=== PATIENT | female | born 1935 | race Caucasian/White ===

== ENCOUNTER 2022-11-20 10:23 | Inpatient (IN) | payer OTHER, MEDICARE ==
[2022-11-20] MEDS ORDERED: NA CHLORIDE 0.9% 1,000 ML ONE (10:44)
--- NOTE | 2022-11-20 10:54 | RAD REPORT ---
EXAM DESCRIPTION: CT - Head Brain Wo Cont - 11/20/2022 10:48 am CLINICAL HISTORY: dizziness, head injury Trauma, head injury COMPARISON: No comparisons TECHNIQUE: All CT scans are performed using dose optimization technique as appropriate and may inclu de automated exposure control or mA/KV adjustment according to patient size. FINDINGS: No intracranial hemorrhage, hydrocephalus or extra-axial fluid collection.Mild brain atrop hy. 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 Small amount of fluid left maxillary sinus. The calvarium is intact. IMPRESSION: No acute intracranial abnormality.
[2022-11-20 11:20] LABS: Absolute Lymphocytes (CBC) 0.3 K/uL (0.7-4.9); Hematocrit 36.2 % (36.0-45.0); Lymphocytes % 1.4 % (15.3-44.8); MCV 84.8 fL (80-100); MPV 7.7 fL (7.6-11.3); RBC Red Blood Cell Count 4.26 M/uL (3.86-4.86)
[2022-11-20 11:26] LABS: Protime INR 1.22
--- NOTE | 2022-11-20 11:27 | RAD REPORT ---
EXAM DESCRIPTION: RAD - Chest Single View - 11/20/2022 11:19 am CLINICAL HISTORY: dizziness Chest pain. COMPARISON: No comparisons FINDINGS: Portable technique limits examination quality. The lungs are grossly clear. The heart is normal in size. No displaced fractures. IMPRESSION: No acute intrathoracic process suspected.
[2022-11-20 11:36] LABS: Albumin 3.6 g/dL (3.4-5.0); Bilirubin Direct 0.4 mg/dL (0-0.2); Bilirubin Total 0.9 mg/dL (0.2-1.0); Magnesium 1.7 mg/dL (1.6-2.4); Potassium 3.6 mmol/L (3.5-5.1); Protein, Total 6.9 g/dL (6.4-8.2)
[2022-11-20 11:43] LABS: Troponin High Sensitivity 677.7 pg/mL (<58.9)
[2022-11-20 11:48] LABS: SARS-CoV-2 Antigen Rapid Res Negative (Negative)
--- NOTE | 2022-11-20 12:13 | EDPHYS ---
Physician Documentation [facility] Name: Rashmi Lehman Age: 87 yrs Sex: Female : 1935 Arrival Date: 11/20/2022 Time: 10:26 Bed 5 Private MD: ED Physician David Andersen HPI: 11/20 10:39 This 87 yrs old Female presents to ER via EMS with complaints of Dizziness, weakness. rn 10:39 The patient presents with dizziness, feeling faint, generalized weakness. Onset: The rn symptoms/episode began/occurred 3 day(s) ago. Modifying factors: The symptoms are alleviated by lying down, the symptoms are aggravated by standing up, changing position. Associated signs and symptoms: Pertinent positives: nausea, Pertinent negatives: abdominal pain, ataxia, chest pain, focal weakness, head injury, headache, seizure, shortness of breath, syncope, vomiting. Severity of symptoms: At their worst the symptoms were moderate in the emergency department the symptoms are unchanged. The patient has experienced similar episodes in the past. The patient has not recently seen a physician. Pt reports generalized weakness and fatigue for 2-3 days, has fallen several times in last 3 days, hit head, no LOC. No vomiting/abd pain/chest pain/diarrhea. Reports has had problems with dehydration in past. EMS reports tachycardia and started IV with fluids, patient feels slightly better with fluids. . Historical: - Allergies: 10:30 No Known Allergies; bp - Home Meds: 10:47 metoprolol tartrate 25 mg oral tab 2 times per day [Active]; losartan 50 mg oral tab 1 aa5 tab once daily [Active]; levothyroxine 100 mcg tab once daily [Active]; metoprolol tartrate 50 mg Oral tab 2 times per day [Active]; atorvastatin 20 mg oral tab once daily [Active]; - PMHx: 10:30 Hypertensive disorder; Hypercholesterolemia; bp - Immunization history:: Adult Immunizations up to date. - Social history:: Smoking status: Patient denies any tobacco usage or history of. - Family history:: not pertinent. - Hospitalizations: : No recent hospitalization is reported. ROS: 10:39 Constitutional: Negative for fever, chills, and weight loss, Eyes: Negative for injury, rn pain, redness, and discharge, Neck: Negative for injury, pain, and swelling, Cardiovascular: Negative for chest pain, palpitations, and edema, Respiratory: Negative for shortness of breath, cough, wheezing, and pleuritic chest pain, Abdomen/GI: Negative for abdominal pain, nausea, vomiting, diarrhea, and constipation, Back: Negative for injury and pain, MS/Extremity: Negative for injury and deformity, Skin: Negative for injury, rash, and discoloration, Neuro: Negative for headache, numbness, tingling, and seizure Exam: 10:39 Constitutional: This is a well developed, well nourished patient who is awake, alert, rn and in no acute distress. Head/Face: Normocephalic, atraumatic. ENT: dry MM Cardiovascular: tachycardic, regular. Respiratory: No increased work of breathing, no retractions or nasal flaring. Abdomen/GI: Soft, non-tender Skin: Warm, dry MS/ Extremity: Pulses equal, no cyanosis. Neuro: Awake and alert, GCS 15 10:56 ECG was reviewed by the Attending Physician. rn Vital Signs: 10:28 BP 157 / 82; Pulse 118; Resp 16; Temp 98; Pulse Ox 98% ; bp 11:16 BP 139 / 84; Pulse 113; Resp 20; Pulse Ox 97% ; bp 13:59 BP 119 / 69; Pulse 109; Resp 16; Pulse Ox 96% ; bp 14:54 BP 140 / 89; Pulse 130; Resp 17; Temp 100.5; Pulse Ox 95% on R/A; jl7 MDM: 10:26 Patient medically screened. rn 12:07 Differential diagnosis: cardiac arrhythmia, CVA, generalized weakness, hypovolemia, rn idiopathic dizziness, near-syncope, TIA, vertigo. Data reviewed: vital signs, nurses notes, lab test result(s), EKG, radiologic studies, CT scan, and as a result, I will admit patient. Consideration of Admission/Observation Patient was admitted/placed on observation. Management of patient was discussed with the following: Hospitalist: Case and management discussed with Dr. Benitez.. Historians other than the Patient: Spouse/Significant Other: . Counseling: I had a detailed discussion with the patient and/or guardian regarding: the historical points, exam findings, and any diagnostic results supporting the discharge/admit diagnosis, lab results, radiology results. Counseling: I had a detailed discussion with the patient and/or guardian regarding: the presence of at least one elevated blood pressure reading (>120/80) during this emergency department visit, the need for further work-up and treatment in the hospital. Response to treatment: the patient's symptoms have mildly improved after treatment, and as a result, I will admit patient. ED course: Pt appears dehydrated, could explain weakness and falls/syncope, but also has elevated troponin, no ischemia on ECG, and does not complain of chest pain. . 11/20 10:36 Order name: Basic Metabolic Panel; Complete Time: 12:11/20 10:36 Order name: CBC with Diff; Complete Time: 11:11/20 10:36 Order name: Hepatic Function; Complete Time: :11/20 10:36 Order name: Magnesium; Complete Time: 11/20 10:36 Order name: Protime (+inr); Complete Time: 11:11/20 10:36 Order name: Ptt, Activated; Complete Time: 11:11/20 10:36 Order name: Troponin High Sensitivity; Complete Time: 12:11/20 10:36 Order name: CT Head Brain wo Cont; Complete Time: 11:11/20 10:36 Order name: Chest Single View XRAY; Complete Time: 11:11/20 10:36 Order name: SARS RAPID; Complete Time: 12:11/20 12:17 Order name: Urine Dipstick-Ancillary; Complete Time: 12:43 EDMS 11/20 15:02 Order name: Urine Microscopic Only bd 11/20 15:02 Order name: Urine Culture bd 11/20 10:36 Order name: EKG; Complete Time: 10:36 11/20 10:36 Order name: Cardiac monitoring; Complete Time: 10:36 11/20 10:36 Order name: EKG - Nurse/Tech; Complete Time: 11:11/20 10:36 Order name: IV Saline Lock; Complete Time: :11/20 10:36 Order name: Labs collected and sent; Complete Time: 11:11/20 10:36 Order name: O2 Per Protocol; Complete Time: 10:11/20 10:36 Order name: O2 Sat Monitoring; Complete Time: :11/20 10:36 Order name: Urine Dipstick-Ancillary (obtain specimen); Complete Time: 12:18 rn EC:56 Rate is 117 beats/min. Rhythm is regular. QRS [place] is Normal. [place] interval is normal. rn QRS interval is normal. QT interval is normal. No Q waves. T waves are Normal. No ST changes noted. Clinical impression: Sinus tachycardia. Interpreted by me. Reviewed by me. Administered Medications: 11:11 Drug: NS 0.9% 1000 ml Route: IV; Rate: 1000 ml; Site: left forearm; bp 12:30 Follow up: Response: No adverse reaction; IV Status: Completed infusion; IV Intake: jl7 1000ml 12:18 Drug: Aspirin Chewable Tablet 324 mg Route: PO; kr3 15:06 Follow up: Response: No adverse reaction jl7 15:06 Drug: Tylenol 650 mg Route: PO; jl7 15:07 Follow up: Response: Medication administered on admission jl7 Disposition Summary: 11/20/22 12:12 Hospitalization Ordered Hospitalization Status: Inpatient Admission rn Provider: Vijay Benitez rn Location: Telemetry/MedSurg (Inpatient) rn Condition: Stable rn Problem: new rn Symptoms: have improved rn Bed/Room Type: Standard rn Room Assignment: 431(11/20/22 13:23) bd Diagnosis - Syncope rn - Muscle weakness (generalized) rn - Dehydration rn - Abnormal elevation of troponin rn Forms: - Medication Reconciliation Form rn - SBAR form rn Signatures: Dispatcher [employer] EDKarin Sinclair Roman, MD MD rn Calderon, Audri RN RN aa5 Ryanne Canada RN RN jl7 Nicolas Gamez RN Linsey Fonseca RN RN kr3 Corrections: (The following items were deleted from the chart) :23 12:12 rn bd
--- NOTE | 2022-11-20 12:13 | ER ---
Nurse's Notes [facility] Name: Rashmi Lehman Age: 87 yrs Sex: Female : 1935 Arrival Date: 11/20/2022 Time: 10:26 Bed 5 Private MD: Diagnosis: Syncope;Muscle weakness (generalized);Dehydration;Abnormal elevation of troponin Presentation: 11/20 10:28 Chief complaint: EMS states: DIZZINESS AND WEAKNESS x "MONTHS". Coronavirus screen: At bp this time, the client does not indicate any symptoms associated with coronavirus-19. Ebola Screen: No symptoms or risks identified at this time. Initial Sepsis Screen: Does the patient meet any 2 criteria? HR > 90 bpm. No. Patient's initial sepsis screen is negative. Does the patient have a suspected source of infection? No. Patient's initial sepsis screen is negative. Risk Assessment: Do you want to hurt yourself or someone else? Patient reports no desire to harm self or others. Onset of symptoms is unknown. Care prior to arrival: IV initiated. 20 GA, in the left forearm. 10:28 Method Of Arrival: EMS: [facility] bp 10:28 Acuity: FIONA 3 bp Triage Assessment: 10:30 General: Appears in no apparent distress. Behavior is cooperative, appropriate for age, bp anxious. Pain: Denies pain. EENT: No deficits noted. Neuro: Reports dizziness, weakness GENERALIZED. Cardiovascular: Rhythm is sinus tachycardia. Respiratory: No deficits noted. GI: No signs and/or symptoms were reported involving the gastrointestinal system. : No signs and/or symptoms were reported regarding the genitourinary system. Derm: No deficits noted. Musculoskeletal: No deficits noted. Historical: - Allergies: 10:30 No Known Allergies; bp - Home Meds: 10:47 metoprolol tartrate 25 mg oral tab 2 times per day [Active]; losartan 50 mg oral tab 1 aa5 tab once daily [Active]; levothyroxine 100 mcg tab once daily [Active]; metoprolol tartrate 50 mg Oral tab 2 times per day [Active]; atorvastatin 20 mg oral tab once daily [Active]; - PMHx: 10:30 Hypertensive disorder; Hypercholesterolemia; bp - Immunization history:: Adult Immunizations up to date. - Social history:: Smoking status: Patient denies any tobacco usage or history of. - Family history:: not pertinent. - Hospitalizations: : No recent hospitalization is reported. Screenin:30 [facility] ED Fall Risk Assessment (Adult) History of falling in the last 3 months, bp including since admission Yes- physiologic fall (2 pts) Confusion or Disorientation No (0 pts) Intoxicated or Sedated No (0 pts) Impaired Gait No (0 pts) Mobility Assist Device Used No (0 pt) Altered Elimination No (0 pt) Score/Fall Risk Level 0 - 2 = Low Risk Oriented to surroundings, Maintained a safe environment, Educated pt \\T\\ family on fall prevention, incl call for assistance when getting out of bed. Abuse screen: Denies threats or abuse. Denies injuries from another. Nutritional screening: No deficits noted. Tuberculosis screening: No symptoms or risk factors identified. Assessment: 10:30 General: SEE TRIAGE NOTE. bp 11:17 Reassessment: No changes from previously documented assessment. Patient and/or family bp updated on plan of care and expected duration. Pain level reassessed. 12:30 Reassessment: ADMIT IN PROCESS. bp 13:58 Reassessment: REPORT TO PAGE HUI FOR RM 431. bp 15:09 Reassessment: Dr. Andersen notified of 100.5 oral temperature, VO for 650 mg Tylenol PO, jl7 pt medicated as ordered. Vital Signs: 10:28 BP 157 / 82; Pulse 118; Resp 16; Temp 98; Pulse Ox 98% ; bp 11:16 BP 139 / 84; Pulse 113; Resp 20; Pulse Ox 97% ; bp 13:59 BP 119 / 69; Pulse 109; Resp 16; Pulse Ox 96% ; bp 14:54 BP 140 / 89; Pulse 130; Resp 17; Temp 100.5; Pulse Ox 95% on R/A; jl7 ED Course: 10:26 Patient arrived in ED. bd 10:26 David Andersen MD is Attending Physician. rn 10:27 Nicolas Gamez, KORINA is Primary Nurse. bp 10:30 Triage completed. bp 10:30 Arm band placed on. bp 10:30 Patient has correct armband on for positive identification. Bed in low position. Call bp light in reach. Side rails up X2. 10:30 Maintain EMS IV. Dressing intact. Good blood return noted. Site clean \\T\\ dry. Gauge \\T\\ bp site: 20 G LEFT FA. 10:48 CT Head Brain wo Cont In Process Unspecified. EDMS 11:21 Chest Single View XRAY In Process Unspecified. EDMS 12:11 Vijay Benitez MD is Hospitalizing Provider. rn 13:58 No provider procedures requiring assistance completed. Patient admitted, IV remains in bp place. Administered Medications: 11:11 Drug: NS 0.9% 1000 ml Route: IV; Rate: 1000 ml; Site: left forearm; bp 12:30 Follow up: Response: No adverse reaction; IV Status: Completed infusion; IV Intake: jl7 1000ml 12:18 Drug: Aspirin Chewable Tablet 324 mg Route: PO; kr3 15:06 Follow up: Response: No adverse reaction jl7 15:06 Drug: Tylenol 650 mg Route: PO; jl7 15:07 Follow up: Response: Medication administered on admission jl7 Medication: 10:30 VIS not applicable for this client. bp Intake: 12:30 IV: 1000ml; Total: 1000ml. jl7 Outcome: 12:12 Decision to Hospitalize by Provider. rn 13:58 Admitted to Med/surg accompanied by tech, via wheelchair, room 431. bp 13:58 Condition: stable 13:58 Instructed on the need for admit. 15:09 Patient left the ED. jl7 Signatures: Dispatcher [employer] EDMS Karin Spence Roman, MD MD rn Calderon, Audri, RN RN aa5 Ryanne Canada RN RN jl7 Nicolas Gamez, RN RN Linsey Bragg, RN RN kr3
[2022-11-20 12:17] LABS: Urine Blood 2+ (Negative); Urine Glucose Negative (Negative); Urine Protein 2+ (Negative); Urine Specific Gravity 1.015 (1.005-1.030)
[2022-11-20] MEDS ORDERED: ASPIRIN 81 MG CHEWABLE TABLET ONE (12:17)
[2022-11-20] MEDS ORDERED: ACETAMINOPHEN 325 MG TABLET ONE (15:07)
[2022-11-20 15:17] VITALS: O2SAT 95
[2022-11-20 15:27] LABS: Urine Bacteria >50 /HPF (<20); Urine Crystals Unidentified Few /HPF (None Seen); Urine Mucus Slight /HPF (None Seen); Urine WBC Clump Few /HPF (None Seen)
[2022-11-20] MEDS ORDERED: NA CHLORIDE 0.9% 1,000 ML IV SCH (15:46)
[2022-11-20] MEDS ORDERED: ONDANSETRON 4 MG/2 ML VIAL IV PRN (15:46)
[2022-11-20] MEDS ORDERED: PNEUMOCOCCAL VACCINE 0.5 ML IMVAC ONE (18:00)
[2022-11-20] MEDS ORDERED: Levofloxacin500mg IV 500 MG/100 ML BAG IV SCH (19:00)
--- NOTE | 2022-11-20 21:44 | CON ---
Date of Consultation: 11/20/2022 Reason For Consultation: Elevated troponin and syncope. History Of Present Illness: This is an 87-year-old female with past medical history of dyslipidemia and hypertension who presented to the emergency room due to syncopal episode, feeling dizzy. She latha d she was standing in front of the sink, felt dizzy and everything became white. Denied having any c hest pain and there was no shortness of breath, but she claimed that she has been passing out lately. She does have a past medical history of hypertension and she is taking losartan and metoprolol. Levi mejia has also hypothyroidism, on levothyroxine and she takes simvastatin for dyslipidemia. Upon hospita lization, the patient has been stable; however, her initial troponin was elevated at 677 and doubled to 1400. Again, the patient has no chest pain. Past Medical History: As outlined above in HPI. Medications: Refer to reconciliation sheet for detailed list. Allergies: PENICILLIN. Family History: No premature coronary artery disease or cancer. Social History: Does not smoke or drink. Does not use any drugs. Review of Systems: All systems reviewed and they were negative except for mentioned in HPI. Physical Examination: Vital Signs: Temperature is 100.5, heart rate is 109, breathing at 16, blood pressure is 119/69, and saturating 96%. General: A pleasant elderly female, in no apparent distress. Head And Neck: Pupils are equal and reactive to light. Intact eye movements. No JVD. No cervical lymphadenopathy. Neck is supple. Thyroid is not enlarged. Lungs: Clear to auscultation bilaterally. No rhonchi, wheezing, or crackles. No accessory muscle u se. Heart: Irregular. No extra sounds. Abdomen: Soft, nontender. Bowel sounds positive. No organomegaly. No masses or hernia. No rigidi ty or rebound. Extremities: No clubbing or cyanosis. Intact pulses. Skin: No rash. Neurologic: Alert, awake, and oriented x3. No acute focal deficits appreciated. Investigations: Urine with more than 50 white blood cells. Hemoglobin is 12 and white blood count i s 18.5. Troponin 677 and then 1453. BUN is 18 and creatinine 1.2. Assessment/recommendation: 1.Elevated troponin. There is no chest pain. The patient has fever and white count and significant urinary tract infection and that could be the cause for the demand. Recommend to obtain echocardiog brendon and treat underlying infection. If there are no wall motion abnormalities, we will plan for outp atient stress test. If there are wall motion abnormalities on the echo, then we will plan for inpati ent stress test. Obtain 1 more troponin until it trends down. 2.Urinary tract infection, on IV antibiotics. 3.Syncope. This could be due to hypotension; however, monitor on telemetry. Obtain echocardiogram as above and trend cardiac enzymes and gentle hydration. SR/MODL Voice ID: [id number] Report ID: [id number]
[2022-11-20] MEDS ORDERED: ENOXAPARIN 30 MG/0.3 ML SQ ONE (22:30)
[2022-11-20] MEDS: methocarbamoL 500 MG TAB PO SCH (22:30)
[2022-11-20] MEDS: ATORVASTATIN 40 MG TAB PO SCH (22:31)
[2022-11-20] MEDS: ACETAMINOPHEN 500 MG TAB PO PRN (23:48)
[2022-11-21 04:01] LABS: Absolute Lymphocytes (CBC) 0.5 K/uL (0.7-4.9); Hematocrit 30.2 % (36.0-45.0); Lymphocytes % 2.6 % (15.3-44.8); MCV 84.8 fL (80-100); RBC Red Blood Cell Count 3.56 M/uL (3.86-4.86)
[2022-11-21 04:17] LABS: Potassium 3.5 mmol/L (3.5-5.1)
[2022-11-21 04:23] LABS: Troponin High Sensitivity 2788.2 pg/mL (<58.9)
[2022-11-21] MEDS: LEVOTHYROXINE SOD 0.1 MG TAB PO SCH (06:14)
[2022-11-21] MEDS: methocarbamoL 500 MG TAB PO SCH ×3 (08:41→19:26)
[2022-11-21] MEDS: ASPIRIN EC 81 MG TAB PO SCH (08:41)
[2022-11-21] MEDS: ENOXAPARIN 30 MG/0.3 ML SQ SCH ×2 (08:42→19:27)
[2022-11-21] MEDS: METOPROLOL TAR 25 MG TAB PO SCH ×2 (08:42→19:26)
--- NOTE | 2022-11-21 08:44 | HP ---
Date of Admission: 11/20/2022 Chief Complaint: Feeling weak and falling down. History Of Present Illness: This is an 87-year-old female patient, who lives at home with her levi rivas, has been feeling weak for last 2 to 3 days and has fallen down multiple times at home. She denies any obvious injury. She was brought in today with these complaints and after she was evaluated, she was admitted to the hospital. Her troponin level was elevated and she denies any chest pain or any kind of cardiac complaints. Allergies: TO PENICILLIN CAUSING RASH AND GABAPENTIN CAUSING NAUSEA. Medications: Atorvastatin 20 mg daily at bedtime, aspirin 81 mg daily, levothyroxine 100 mcg daily, losartan 50 mg daily, metoprolol 50 mg 2 times a day, and vitamin B12 2 mg daily. Review of Systems: Constitutional: As mentioned above. Genitourinary: As of today, the patient started to have some complaints of burning on urination. All other systems reviewed and negative. Past Medical History: Significant for peripheral neuropathy hypothyroidism, hyperlipidemia, hyperten pacheco, chronic kidney disease, vitamin B12 deficiency, anxiety, depression, insomnia. Past Surgical History: Cataract surgery, LASIK surgery, tonsillectomy, hysterectomy. Family History: Father had pancreatic cancer. Mother had ID, diabetes, and hypertension. Sister almeida d breast cancer and diabetes. Social History: Prior history of smoking, not at present time. Use of alcohol negative. Physical Examination: Vital Signs: Temperature 100.4, pulse 108, respiratory rate 16, blood pressure 105/54, oxygen satura tion 98% on room air, height 5 feet 1 inch, weight 110 pounds. General: Awake, alert, oriented, not in distress. HEENT: Head atraumatic, normocephalic. Conjunctivae nonerythematous. Sclerae white. Mouth, no thr ush or edema noted. Ears/Nose, no mass, lesion, discharge noted. Neck: Supple. No JVD, lymph nodes, bruit, thyromegaly noted. Lungs: Bilateral good equal air entry. Clear to auscultation. No rhonchi. No rales. Heart: Normal heart sounds, no murmur or gallop. Abdomen: Soft, bowel sounds normal. No guarding, rigidity, tenderness, mass, hepatosplenomegaly, dis tention, or bruit noted. Extremities: No leg edema. No calf tenderness. Skin: No rash, ulcer, cellulitis. Lymphatics: No lymph node enlargement in neck, supraclavicular, infraclavicular region. Neuro: No focal neurological deficit. Chest: Unremarkable. External Genitalia: Deferred. Rectal: Deferred. Laboratory Data: White count 18.5, hemoglobin 12, platelets 193. Sodium 134, potassium 3.6, chlorid e 103, bicarb 22, BUN 18, creatinine 1.20, glucose 169. Liver function tests unremarkable. Initial troponin 677.7, and second troponin 1453.7. Urinalysis; 1+ esterase, 11-20 RBC, more than 50 WBC, mo re than 50 bacteria. Chest x-ray, no acute cardiopulmonary changes. CAT scan of the head, no acute intracranial changes. COVID-19 test negative. EKG, no acute ST-T changes. Impression: 1.Non-ST segment elevation myocardial infarction. 2.Urinary tract infection. 3.Hypertension. 4.Hyperlipidemia. 5.Hypothyroidism. 6.Peripheral neuropathy. 7.Vitamin B12 deficiency. 8.Anxiety. 9.Depression. 10.Insomnia. 11.Chronic kidney disease, stage 3A. Plan: We will go ahead and admit the patient to hospital for further evaluation and management of th is problem. The patient is appropriate for inpatient and is expected to spend 2 midnights in [facility]. Urine culture was sent from emergency room. We will start her on empiric antibiotic, Levaquin. IV fluid will be given per order. We will follow up on urine culture results and if necessary make a djustment on antibiotic according to the culture result. For non-STEMI, we will go ahead and consult aircraft armament mechanic. The patient received aspirin in the emergency room, which we will continue that. We will start her on Lovenox and low-dose beta kari therapy considering her blood pressure is running on the lower side. As it becomes necessary, we will increase her metoprolol dose. Echocardiogram w as ordered to be done for tomorrow morning. For hypertension, we will monitor blood pressure, consid er to restart her antihypertensive medication at appropriate time, but right now we will start her on low-dose metoprolol 25 mg 2 times a day, hold if systolic blood pressure less than 120. For her hyp erlipidemia, we will start her on high dose statin therapy, at home she takes atorvastatin 20 mg jarad y instead of that we will increase the dose to 40 mg daily. For her hypothyroidism, we will continue her levothyroxine per order. The patient was complaining of leg cramps and we will give her methoca rbamol per order. Details and plan of treatment discussed with her. I will see her tomorrow morning for followup. FABBY/JACOB Voice ID: [id number]
--- NOTE | 2022-11-21 16:58 | EKG ---
Test Date: 2022-11-20 Test Time: 10:53:31 Protective Officer: HUBERT MEASUREMENT RESULTS: Intervals: Rate: 117 [place]: 126 QRSD: 76 QT: 326 QTc: 454 [place]: P: 71 [place]: 126 QRS: 37 T: 74 INTERPRETIVE STATEMENTS: Sinus tachycardia Nonspecific ST abnormality Abnormal ECG No previous ECG available for comparison Electronically Signed On 11-21-22 16:54:57 BAND INSTRUMENT REPAIRER by Luca Frias
[2022-11-21] MEDS: ACETAMINOPHEN 500 MG TAB PO PRN (19:26)
[2022-11-21] MEDS: ATORVASTATIN 40 MG TAB PO SCH (19:26)
[2022-11-22 05:05] LABS: Absolute Lymphocytes (CBC) 0.4 K/uL (0.7-4.9); Lymphocytes % 3.7 % (15.3-44.8); MCV 84.1 fL (80-100); MPV 8.1 fL (7.6-11.3); RBC Red Blood Cell Count 3.45 M/uL (3.86-4.86)
[2022-11-22 05:23] LABS: Albumin 2.7 g/dL (3.4-5.0); Bilirubin Total 0.6 mg/dL (0.2-1.0); Magnesium 1.9 mg/dL (1.6-2.4); Potassium 3.7 mmol/L (3.5-5.1); Protein, Total 5.9 g/dL (6.4-8.2)
[2022-11-22 05:34] LABS: Troponin High Sensitivity 3342.2 pg/mL (<58.9)
[2022-11-22] MEDS: LEVOTHYROXINE SOD 0.1 MG TAB PO SCH (06:02)
[2022-11-22] MEDS: ACETAMINOPHEN 500 MG TAB PO PRN ×2 (06:02→20:36)
--- NOTE | 2022-11-22 07:23 | ECHO ---
HEIGHT: 5 ft 3 in WEIGHT: 110 lb 0 oz DATE OF STUDY: 11/21/[address]: Meng Benitez MD 2-DIMENSIONAL: YES M.MODE: YES DOPPLER: YES COLOR FLOW: YES TDS: PORTABLE: YES DEFINITY: BUBBLE STUDY: DIAGNOSIS: HIGH TROPONIN CARDIAC HISTORY: CATHERIZATION: SURGERY: PROSTHETIC VALVE: PACEMAKER: MEASUREMENTS (cm) DIASTOLIC (NORMALS) SYSTOLIC (NORMALS) IVSd 0.8 (0.6-1.2) LA Diam 3.5 (1.9-4.0) LVEF 63% LVIDd 4.2 (3.5-5.7) LVIDs 2.8 (2.0-3.5) %FS 34% LVPWd 1.0 (0.6-1.2) Ao Diam 2.8 (2.0-3.7) 2 DIMENSIONAL ASSESSMENT: RIGHT ATRIUM: NORMAL LEFT ATRIUM: NORMAL RIGHT VENTRICLE: NORMAL LEFT VENTRICLE: NORMAL TRICUSPID VALVE: MILD TRICUSPID REGURGITATION MITRAL VALVE: MILD MITRAL REGURGITATION PULMONIC VALVE: NORMAL AORTIC VALVE: MILD AORTIC INSUFFICIENCY PERICARDIAL EFFUSION: NONE AORTIC ROOT: NORMAL LEFT VENTRICULAR WALL MOTION: NORMAL DOPPLER/COLOR FLOW: SEE BELOW COMMENTS: 1. NORMAL LEFT VENTRICULAR EJECTION FRACTION 60-65% 2. NORMAL WALL MOTION 3. MILD MITRAL REGURGITATION, MILD TRICUSPID REGURGITATION 4. MILD TO MODERATE AORTIC INSUFFICIENCY 5. DIASTOLIC DYSFUNCTION TECHNOLOGIST: ALESIA MCCLAIN
[2022-11-22] MEDS: ENOXAPARIN 30 MG/0.3 ML SQ SCH (09:03)
[2022-11-22] MEDS: ASPIRIN EC 81 MG TAB PO SCH (09:03)
[2022-11-22] MEDS: methocarbamoL 500 MG TAB PO SCH ×3 (09:03→20:41)
[2022-11-22] MEDS: METOPROLOL TAR 25 MG TAB PO SCH ×2 (09:04→20:36)
[2022-11-22] MEDS: Levofloxacin 750mg IV 750 MG/150 ML BAG IV SCH (09:05)
--- NOTE | 2022-11-22 11:17 | PN ---
Date of Progress Note: 11/21/2022 Subjective: The patient was seen this morning for followup. No new complaints or problems reported by the patient. Lying in bed, not in distress. Denies any abdominal pain, nausea, vomiting. No ana st pain. No shortness of breath. Objective: Vital Signs: Reviewed. HEENT: Unremarkable. Lungs: Clear to auscultation. Heart: Sounds normal. Abdomen: Soft bowel sounds normal. No guarding, rigidity, tenderness, distention. Extremities: No leg edema. Laboratory Data: White count 18.2, hemoglobin 10.3, platelets 158. Sodium 133, potassium 3.5, chlor cisco 104, bicarb 21, BUN 18, creatinine 1.12, glucose 142. Troponin 2788. Impression: 1.Urinary tract infection. 2.Non-ST segment elevation myocardial infarction. 3.Hypertension. 4.Hypothyroidism. 5.Anemia. Plan: We will go ahead and continue current antibiotics. We will repeat blood work tomorrow morning . Cardiology consultation is appreciated. Echocardiogram was ordered to be done today. We will fol low up on that. We will repeat blood work tomorrow. Continue metoprolol per order and I will see he r tomorrow for followup. FABBY/MODL Voice ID: [id number] Report ID: [id number]
--- NOTE | 2022-11-22 11:18 | RAD REPORT ---
EXAM DESCRIPTION: CT - Abdomen Pelvis Wo Contrast - 11/22/2022 10:30 am CLINICAL HISTORY: RLQ pain COMPARISON: No comparisons TECHNIQUE: Axial [address] imaging of the abdomen and pelvis was performed without IV contrast. No IV contrast was given because of allergy, abnormal renal function, patient refusal or physician re quest. Oral contrast was given. All CT scans are performed using dose optimization technique as appropriate and may include automated exposure control or mA/KV adjustment according to patient size. FINDINGS: No suspicious findings in the lung bases. The liver, spleen and pancreas show no suspicious findings on non-contrast imaging. Gallbladder and b iliary tree are also without suspicious finding. No hydronephrosis or suspicious renal mass. No obstructing or nonobstructing calculi. No significant adrenal finding. Isodense renal masses and pyelonephritis cannot be excluded in the absence of IV con trast. The urinary bladder is without significant finding. Uterus is absent. Remnant ovaries are iden tified and show no suspicious finding. No dilated bowel loops or bowel wall thickening. Patient has very prominent left-sided diverticulosis but no diverticulitis. No appendicitis findings. No free air, free fluid or pneumatosis. No hernia i dentified. No bulky lymphadenopathy. Bony degenerative changes are present. No acute bone finding. The right-side psoas muscle is fractionally enlarged compared to the left. There is enlargement of th e right iliacus muscle with a 6 x 4 centimeter hematoma along the inner table of the right iliac gena t. This iliacus enlargement extends into the anterior thigh where the muscle inserts into the femur. There is stranding and edema in the retroperitoneal tissues along the iliopsoas musculature and minim ally along the posterior right pararenal fascia. IMPRESSION: Approximately 6 x 4 centimeter hematoma in the right iliac muscle along the inner table of the right ilium. There is overall further enlargement of the iliacus muscle and minimally in the r ight psoas muscle. This continues into the anterior upper thigh or the muscle inserts into the femur. Additional nonacute findings are detailed in the body of the report. Full assessment is limited is the absence of IV contrast.
--- NOTE | 2022-11-22 13:15 | RAD REPORT ---
EXAM DESCRIPTION: RAD - Hip Bilateral With Pelvis - 11/22/2022 12:43 pm CLINICAL HISTORY: Right hip pain FINDINGS: No fracture or dislocation seen. Mild osteoarthritis involves the hips
--- NOTE | 2022-11-22 18:23 | PN ---
Date of Progress Note: 11/22/2022 Subjective: Seen by bedside. She has no chest pain. Review of Systems: No chest pain, shortness of breath, orthopnea, or cough. No nausea, vomiting, or diarrhea. All othe r systems reviewed and they were negative. Objective: Vital Signs: Reviewed. Head and Neck: Pupils are equal, reactive to light. Intact eye movements. No JVD. No cervical lym phadenopathy. Neck: Supple. Thyroid is not enlarged. Lungs: Clear to auscultation bilaterally. No rhonchi, rales, or crackles. No accessory muscle use. Heart: Regular rate and rhythm. No extra sounds. Abdomen: Soft, nontender. Bowel sounds positive. No organomegaly. No masses or hernia. No rigidi ty or rebound. Extremities: No edema, clubbing, or cyanosis. Intact pulses. Skin: No rash. Neurologic: Alert, awake, oriented x3. No acute focal deficits appreciated. Investigations: Her BUN is 21, creatinine 1.1, and troponin 3342. Assessment And Recommendations: Non-ST elevation myocardial infarction. Unfortunately, she was foun d to have a hematoma of the right iliac muscle. Apparently, this patient had a fall when she present ed on Sunday and with the troponin being elevated, she was anticoagulated, probably was the reason fo r the hematoma to be followed. At this point, she is having some tenderness at the area of the hemat andrew, so I will await on proceeding with coronary angiogram due to that issue and will plan on doing t he coronary angiogram within a week unless her condition changes. On echo, her ejection fraction is normal and no wall motion abnormality. I recommend continue medical management with beta-kari and baby aspirin for now. Case discussed in detail with Dr. Eugenie mcguire, who is the primary care physician. /JACOB Voice ID: [id number] Report ID: [id number]
[2022-11-22] MEDS: ATORVASTATIN 40 MG TAB PO SCH (20:36)
[2022-11-23] MEDS: ACETAMINOPHEN 500 MG TAB PO PRN ×2 (02:05→11:34)
[2022-11-23 04:44] LABS: Absolute Lymphocytes (CBC) 0.4 K/uL (0.7-4.9); Hematocrit 28.1 % (36.0-45.0); Lymphocytes % 5.2 % (15.3-44.8); MCV 83.7 fL (80-100); RBC Red Blood Cell Count 3.35 M/uL (3.86-4.86)
[2022-11-23 04:55] LABS: Potassium 3.5 mmol/L (3.5-5.1)
[2022-11-23 04:56] LABS: Troponin High Sensitivity 2193.3 pg/mL (<58.9)
[2022-11-23] MEDS: LEVOTHYROXINE SOD 0.1 MG TAB PO SCH (06:07)
--- NOTE | 2022-11-23 07:19 | PN ---
Date of Progress Note: 11/22/2022 Subjective: The patient was seen this morning for followup. She was sleeping, easily arousable, not in any distress. Denies any chest pain or shortness of breath. This morning when I saw her, she wa s complaining of lower abdominal pain on the right side. Objective: Vital Signs: Reviewed. HEENT: Unremarkable. Lungs: Clear to auscultation. Heart: Sounds normal. Abdomen: Soft. Bowel sounds normal. No guarding, rigidity. No distention. No hepatosplenomegaly. No bruit. The patient does have tenderness in the right lower quadrant. No rebound tenderness. Extremities: No leg edema. Laboratory Data: White count 11.1, hemoglobin 9.8, platelets 171. Sodium 134, potassium 3.7, chlori de 102, bicarb 24, BUN 21, creatinine 1.14, glucose 124, AST 55, ALT 27, alkaline phosphatase 66. Tr oponin 3342, yesterday was 2788. LDL cholesterol is 32, HDL 42, triglycerides 152. After I saw her hip and pelvis x-ray was done, which was negative for any acute fracture. CT scan of abdomen and pel vis without IV contrast was done, which revealed presence of hematoma in the iliopsoas muscle. Impression: 1.Non-ST segment elevation myocardial infarction. 2.Hypertension. 3.Anemia. 4.Retroperitoneal hematoma, likely due to Lovenox. Plan: As soon as the CT scan was done, radiologist called and informed me about the results and soon after that, we discontinued her Lovenox. The patient has been getting Lovenox 30 mg subcutaneous in jection every 12 hours since she was admitted to the hospital. She had fallen down at home prior to hospital, but I believe that this bleeding complication that we see in form of retroperitoneal hemorr alexandrea is likely result of Lovenox side effect as the patient did not have any symptoms up until this m orning when I saw her she reported this and her clinical exam also did not support any such problem o r diagnosis up until this morning when I examined her. This is the first time, she was noted to have right lower quadrant pain and tenderness. So at this point, we will not be using Lovenox anymore an d continue her aspirin, continue her beta-kari therapy. Metoprolol in fact on basis of her blood pressure dose was increased from 25 mg 2 times a day to 50 mg 2 times a day, hold if systolic blood p ressure less than 120. Continue high-dose statin therapy and we will continue to follow with cardiol ogist. I did communicate details with Dr. Frias. We will repeat blood work tomorrow including her troponin level. FABBY/MODL Voice ID: [id number] Report ID: [id number]
[2022-11-23] MEDS: ASPIRIN EC 81 MG TAB PO SCH (08:32)
[2022-11-23] MEDS: METOPROLOL TAR 25 MG TAB PO SCH ×2 (08:32→20:02)
[2022-11-23] MEDS: methocarbamoL 500 MG TAB PO SCH ×3 (08:33→20:01)
[2022-11-23] MEDS: ATORVASTATIN 40 MG TAB PO SCH (20:01)
--- NOTE | 2022-11-23 21:40 | PN ---
Date of Progress Note: 11/23/2022 Subjective: Seen at the bedside. Doing clinically well. Does not have any chest pain, shortness of breath, orthopnea, cough, nausea, vomiting, diarrhea. All other systems reviewed. They are negativ e. Physical Examination: Vital Signs: Reviewed. Head and Neck: Pupils are equal, reactive to light. Intact eye movements. No JVD. No cervical lym phadenopathy. Neck: Supple. Thyroid is not enlarged. Lungs: Clear to auscultation bilaterally. No rhonchi, ral es, or crackles. No accessory muscle use. Heart: Regular. No extra sounds. Abdomen: Soft, nontender. Bowel sounds positive. No organomega ly. No masses or hernia. No rigidity or rebound. Extremities: No edema, clubbing, cyanosis. Intact pulses. Skin: No rash. Neurologic: Alert, awake, oriented x3. No acute focal deficits appreciated. Investigations: BUN 23, creatinine 1.17, and troponin 2193, and hemoglobin 9.6. Assessment/recommendation: 1.Non-ST elevation myocardial infarction. No chest pain now. Continue aspirin and metoprolol. Met oprolol dose can be increased to get heart rate down between 50 and 60. Due to the recent muscular h ematoma that have been after a fall, we will hold on the coronary angiogram as such, obtain a Lexisca n nuclear stress test and further evaluate accordingly. Her ejection fraction on echo was normal. 2.Dyslipidemia. Continue statin. SR/MODL Voice ID: [id number] Report ID: [id number]
[2022-11-24] MEDS: LEVOTHYROXINE SOD 0.1 MG TAB PO SCH (05:50)
[2022-11-24 05:55] VITALS: BMI 19.5
[2022-11-24 06:41] LABS: Absolute Lymphocytes (CBC) 0.4 K/uL (0.7-4.9); Hematocrit 30.2 % (36.0-45.0); Lymphocytes % 7.8 % (15.3-44.8); MCV 83.6 fL (80-100); MPV 7.4 fL (7.6-11.3); RBC Red Blood Cell Count 3.61 M/uL (3.86-4.86)
[2022-11-24 07:06] LABS: Potassium 3.5 mmol/L (3.5-5.1)
[2022-11-24 07:08] LABS: Troponin High Sensitivity 1822.7 pg/mL (<58.9)
[2022-11-24] MEDS ORDERED: REGADENOSON 0.4 MG/5 ML SYR IV ONE (07:40)
[2022-11-24 07:58] LABS: Blood Morphology Comment NOT SEEN (NOT SEEN); Platelet Estimate ADEQ; White Blood Cell Scan OK (OK)
[2022-11-24 08:37] VITALS: TEMP 97.8
--- NOTE | 2022-11-24 08:47 | RAD REPORT ---
EXAM DESCRIPTION: NM - Rest Stress Cardiac Imaging - 11/24/2022 8:39 am CLINICAL HISTORY: elevated trop Chest pain. COMPARISON: No comparisons TECHNIQUE: The patient was administered approximately 10mCi of Tc 99m Sestamibi prior to resting SPE CT imaging of the heart. The patient was then administered approximately 30 mCi of Tc 99m Sestamibi f ollowing exercise or pharmacologic stress. Multiplanar SPECT images were reviewed. FINDINGS: No stress induced ischemic defect is seen to suggest stress induced ischemia. No fixed def ect is seen to suggest hibernating myocardium or scarred myocardium. The end diastolic volume is 54 ml, the end systolic volume is 28 ml, and the ejection fraction is 40 %. IMPRESSION: No stress induced ischemia.
[2022-11-24] MEDS: methocarbamoL 500 MG TAB PO SCH ×2 (08:51→13:23)
[2022-11-24] MEDS: ASPIRIN EC 81 MG TAB PO SCH (08:51)
[2022-11-24] MEDS: METOPROLOL TAR 25 MG TAB PO SCH (08:52)
[2022-11-24] MEDS: Levofloxacin 750mg IV 750 MG/150 ML BAG IV SCH (08:53)
[2022-11-24] MEDS ORDERED: LOSARTAN POTASSIUM 50 MG TABLET PO SCH (12:00)
[2022-11-24 12:50] VITALS: BP 122/58
--- NOTE | 2022-11-24 13:44 | TREADPHA ---
DX: ELEVATED TROPONIN Date of Study: 11/24/2022 Ht: 5' 3 " Wt: 110 lb 0 oz Consulting Physician: MOE MEDICATIONS: TYLENOL, ASPIRIN, LIPITOR, LEVAQUIN, SYNTHROID, ROBAXIN, LOPRESSOR, ZOFRAN, COZAAR HISTORY: 87 YEAR OLD PATIENT WITH COMPLAINTS OF CHEST PAIN. HISTORY OF HYPERLIPIDEMIA, HYPOTHYROID. DENIES PREVIOUS HEART SYMPTOMS, ALCHHOL OR DRUG USE, SMOKING. PHYSICIAL EXAMINATION: RESTING B.P.: 154/70 RESTING H.R.: 105 RESTING EKG: ATIRAL FIBRILLATION PROTOCOL: PHARMACOLOGIC EXERCISE TIME: 3:30 B.P. AT PEAK STRESS: 114/60 IMPRESSION: LEXISCAN GIVEN. CARDIOLITE INJECTED PER PROTOCOL. SEE NUCLEAR MEDICINE REPORT. PATIENT HAS PREMATURE VENTRICULAR COMPLEXES THROUGHOUT EXAM. DENIES CHEST PAIN/ SHORTNESS OF BREATH. NO SUPRAVENTRICULAR TACHYCARDIA OR PREMATURE ATRIAL COMPLEXES OR VENTRICULAR TACHYCARDIA NOTED. NO ELECTROCARDIOGRAM CHANGES OF ISCHEMIA.
--- NOTE | 2022-11-24 17:05 | PN ---
Date of Progress Note: 11/23/2022 Subjective: The patient was seen this morning for followup. She denied any chest pain. No shortness of breath. Her pain from right lower quadrant of the abdomen has improved. No nausea, no vomiting. Objective: Vital Signs: Reviewed. HEENT: Unremarkable. Lungs: Clear to auscultation. Heart: Sounds normal. Abdomen: Soft. Bowel sounds normal. No guarding, rigidity, tenderness, distention. Extremities: No leg edema. Laboratory Data: Her blood work today shows white count 6.8, hemoglobin 9.6, platelets 171. Yesterd ay's hemoglobin was 9.8. Her sodium today 135, potassium 3.5, chloride 103, bicarb 25, BUN 23, creat inine 1.17, glucose 106, and troponin 2193 today, yesterday it was 3342. Impression: 1.Non-ST segment elevation myocardial infarction. 2.Hypertension. 3.Urinary tract infection. 4.Properitoneal hematoma, likely due to Lovenox injections. Plan: We will continue current antihypertensive medication. Continue aspirin and statin therapy. Considering her troponin is coming down and she has no cardiac symptoms, I did communicate with cardi ologist Dr. Frias and my recommendation is for patient not to have any cardiac catheterization at [facility] for 2 weeks and cardiac catheterization will be necessary as per my discussion with appraiser oil and water if her stress test comes back abnormal and we are planning to do stress test tomorrow. If stress sonu t comes back normal, then no further testing to be done cardiac collazo, but if it comes back abnormal t hen she needs heart catheterization and to be on safe side, we would like to wait for 2 weeks and all the details were discussed with Dr. Frias yesterday. I have also discussed with the patient regard ing importance of going to inpatient rehab as she has fallen down multiple times at home in the last month, almost on a weekly basis as per my discussion with the patient's today. I did discuss with the patient's about details regarding all the findings and diagnosis that we have been treating her for during this hospitalization. FABBY/MODL Voice ID: [id number] Report ID: [id number]
--- NOTE | 2022-11-24 19:07 | PN ---
Date of Progress Note: 11/24/2022 Subjective: Seen by bedside. No chest pain. No shortness of breath. Stress test came back negativ e for acute ischemia. Review of Systems: No chest pain, shortness of breath, orthopnea, cough, nausea, vomiting, or diarrhea. All other syste ms reviewed are negative. Physical Examination: Vital Signs: Reviewed. Head and Neck: Pupils are equal, reactive to light. Intact eye movements. No JVD. No cervical lym phadenopathy. Neck is supple. Thyroid is not enlarged. Lungs: Clear to auscultation bilaterally. No rhonchi, wheezing, or crackles. No accessory muscle u se or muscle retraction. Heart: Irregularly irregular. No extra sounds. Abdomen: Soft, nontender. Bowel sounds positive. No organomegaly. No masses or hernia. No rigidi ty or rebound. Extremities: No clubbing, cyanosis. Intact pulses. Skin: No rashes. Neurologic: Alert, awake, oriented x3. No acute focal deficits appreciated. Investigations: BUN 20, creatinine 1.07. Troponin is 1822. Assessment/recommendations: Elevated troponin, which was suggestive of non-ST elevation myocardial i nfarction. However, on echo, normal ejection fraction and stress test was negative. This could stil l be demand. The patient can be released from Cardiology standpoint and will revisit with her in the office in about 2 weeks and may consider a coronary angiogram at that ti or. SR/MODL Voice ID: [id number] Report ID: [id number]
--- NOTE | 2022-11-25 13:35 | DS ---
Date of Discharge: 11/24/2022 Disposition: The patient was discharged to go to inpatient rehab. Physical Examination: HEENT: Unremarkable. Lungs: Clear to auscultation. Heart: Sounds normal. Abdomen: Soft. Bowel sounds normal. No guarding, rigidity, tenderness, distention. Extremities: No leg edema. Discharge Medications And Instructions: Continue all current medications and see copy of transfer or farhana for details. Laboratory Data: Upon admission on 11/20/2022; WBC 18.5, hemoglobin 12, platelets 193. Today; WBC 5 .5, hemoglobin 10.3, platelets 188. Lowest hemoglobin was 9.6 and that was yesterday. 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 Tropon in today 182. Highest troponin was on November 22 and it was 3342. Initial troponin when she was admitted on 11/20/2022 was 677. Urine culture grew Kluyvera ascorbata. Echocardiogram showed normal ejection fraction, no wall motion abnormality and Lexiscan stress test came back negative for stress -induced ischemia. Hospital Course: This is an 87-year-old very pleasant female patient, came into emergency room with complaints of feeling weak and multiple falls. The patient lives at home with her and in the last 4-6 weeks, she had multiple falls almost on a weekly basis. [facility] the [facility]. Her initial troponin was 677, but then her troponin l evel started going up. We were concerned about non-STEMI. The patient also had urinary tract infect ion and she was started on IV antibiotics, which was Levaquin. Her WBC count came down to normal and remained normal with Levaquin and according to culture, this antibiotic was appropriate, so we did n ot have to change the antibiotics. She was started on Lovenox injection 30 mg subcutaneous injection every 12 hours. Her body weight is 110 pounds. Cardiology consultation was requested. Her cardiac enzymes went up from the time of admission, but then it did start to trend down. The patient never had any complaints of chest pain during this hospitalization or prior to this hospital stay. At some point, the patient started to have complaints of right lower quadrant abdominal pain and she was hav ing tenderness in the right lower quadrant. CAT scan of the abdomen and pelvis without contrast was done and bilateral hip and pelvis x-ray was done. Her x-ray showed evidence of mild osteoarthritis, but CAT scan had shown evidence of retroperitoneal hematoma. With that information, we discontinued her Lovenox injection and details were discussed with biology lecturer. Stress test came back negative f or any stress-induced ischemia, so at this point, there is no need for further cardiac intervention a nd no need for cardiac catheterization as per my discussion with biology lecturer and so we will go ahead and continue to provide medical management. Her hemoglobin has remained stable. Physical Therapy w as consulted and the patient started to ambulate well with the therapy. It was recommended for van love to get physical therapy considering her current problem and multiple recent falls, and different o ptions presented to her and her and she did make a decision to go to inpatient rehab and cons ultation was requested, and after she was accepted, today she was discharged to inpatient rehab in [facility] able condition. Continue to follow up on the rehab floor. Final Diagnoses: 1.Non-ST segment elevation myocardial infarction. 2.Urinary tract infection. 3.Acute blood loss anemia. 4.Hyponatremia. 5.Retroperitoneal hemorrhage secondary to Lovenox. 6.Hypertension. 7.Hyperlipidemia. 8.Hypothyroidism. 9.Peripheral neuropathy. 10.Vitamin B12 deficiency. 11.Anxiety. 12.Depression. 13.Insomnia. 14.Chronic kidney disease, stage 3A. 15.Osteoarthritis, multiple sites. FABBY/MODL Voice ID: [id number] Report ID: [id number]
== END 2022-11-24 17:47 | DRG 280 ==
LOC: ER 10:23 → ERHOLD 12:27 → 4TH 14:06
PROVIDERS: ADMIT Internal Medicine; ATTEND Internal Medicine
DX: I21.4 Non-ST elevation (NSTEMI) myocardial infarction (principal); K66.1 Hemoperitoneum; N39.0 Urinary tract infection, site not specified; D62 Acute posthemorrhagic anemia; E87.1 Hypo-osmolality and hyponatremia; E86.0 Dehydration; E78.5 Hyperlipidemia, unspecified; E03.9 Hypothyroidism, unspecified; I12.9 Hypertensive chronic kidney disease with stage 1 through stage 4 chronic kidney disease, or unspecified chronic kidney disease; N18.31 Chronic kidney disease, stage 3a; E11.22 Type 2 diabetes mellitus with diabetic chronic kidney disease; F41.9 Anxiety disorder, unspecified; F32.A Depression, unspecified; D64.9 Anemia, unspecified; G47.00 Insomnia, unspecified; E53.8 Deficiency of other specified B group vitamins; G62.9 Polyneuropathy, unspecified; S30.1XXA Contusion of abdominal wall, initial encounter; T45.515A Adverse effect of anticoagulants, initial encounter; R77.8 Other specified abnormalities of plasma proteins; Z88.0 Allergy status to penicillin; Z79.890 Hormone replacement therapy; Z79.899 Other long term (current) drug therapy; Z20.822 Contact with and (suspected) exposure to COVID-19; W18.30XA Fall on same level, unspecified, initial encounter; M19.09 Primary osteoarthritis, other specified site; B96.89 Other specified bacterial agents as the cause of diseases classified elsewhere; R29.6 Repeated falls
CPT/HCPCS: 36415; 70450; 71045; 73521; 74176; 78452; 80048; 80053; 80061; 80076; 81003; 81015; 83735; 84484; 85025; 85610; 85730; 87077; 87086; 87088; 87186; 87811; 93005; 93017; 93306; 96360; 97110; 97116; 97161; 97165; 97530; 99285; A9500; J1650; J2785; J7030

== ENCOUNTER 2022-11-24 16:06 | Inpatient (IN) | payer OTHER, MEDICARE ==
[2022-11-24] MEDS ORDERED: ONDANSETRON 4 MG/2 ML VIAL IV PRN (18:31)
[2022-11-24] MEDS: METOPROLOL TAR 50 MG TAB PO SCH (20:25)
[2022-11-24] MEDS: methocarbamoL 500 MG TAB PO SCH (20:25)
[2022-11-24] MEDS: ATORVASTATIN 40 MG TAB PO SCH (20:25)
[2022-11-24] MEDS: ACETAMINOPHEN 500 MG TAB PO PRN (21:51)
[2022-11-25] MEDS: ACETAMINOPHEN 500 MG TAB PO PRN ×2 (03:17→09:17)
[2022-11-25 05:50] LABS: Absolute Lymphocytes (CBC) 0.7 K/uL (0.7-4.9); Hematocrit 30.5 % (36.0-45.0); Lymphocytes % 11.2 % (15.3-44.8); MCV 82.5 fL (80-100); MPV 7.5 fL (7.6-11.3); RBC Red Blood Cell Count 3.69 M/uL (3.86-4.86)
[2022-11-25 06:05] LABS: Albumin 2.7 g/dL (3.4-5.0); Magnesium 2.3 mg/dL (1.6-2.4); Potassium 3.5 mmol/L (3.5-5.1); Prealbumin 12.3 mg/dL (20-40)
[2022-11-25 07:45] LABS: Specific Gravity 1.014 (1.005-1.030); Urine Bacteria <20 /HPF (<20); Urine Bilirubin NEGATIVE (Negative); Urine Blood 1+ (Negative); Urine Clarity Clear (Clear); Urine Color Yellow (Yellow); Urine Glucose NEGATIVE (Negative); Urine Mucus Slight /HPF (None Seen); Urine Protein TRACE (Negative); Urine RBC <5 /HPF (None Seen); Urine Urobilinogen Normal (Normal); Urine pH 5.5 (5.0-7.0)
[2022-11-25 07:56] LABS: Blood Morphology Comment NOT SEEN (NOT SEEN); Platelet Estimate ADEQ; Toxic Granulation PRESENT
[2022-11-25] MEDS ORDERED: levoFLOXacin 500 MG TAB PO SCH (09:00)
[2022-11-25] MEDS: ASPIRIN EC 81 MG TAB PO SCH (09:16)
[2022-11-25] MEDS: METOPROLOL TAR 50 MG TAB PO SCH ×2 (09:16→19:53)
[2022-11-25] MEDS: methocarbamoL 500 MG TAB PO SCH ×3 (09:16→19:53)
[2022-11-25] MEDS: LEVOTHYROXINE SOD 0.1 MG TAB PO SCH (09:17)
[2022-11-25] MEDS: LOSARTAN POTASSIUM 50 MG TABLET PO SCH (09:17)
[2022-11-25] MEDS ORDERED: levoFLOXacin 250 MG TAB PO ONE (12:00)
--- NOTE | 2022-11-25 14:20 | PN ---
Date of Progress Note: 11/25/2022 Subjective: Patient was seen this morning for followup. No new complaints or problems reported by sravanthi uribe. She was sitting in wheelchair. Her was with her at bedside. She slept very well la st night. Denies any complaints this morning. No abdominal pain. No chest pain. No shortness of b reath. Objective: Vital Signs: Reviewed. HEENT: Unremarkable. Lungs: Clear to auscultation. Heart: Sounds normal. Abdomen: Soft. Bowel sounds normal. No guarding, rigidity, tenderness, distention. Extremities: No leg edema. Laboratory Data: WBC 6.3, hemoglobin 10.5, platelets 209. Sodium 136, potassium 3.5, chloride 103, bicarb 24, BUN 21, creatinine 0.97, glucose 108. Urinalysis: 1+ blood, 1+ ketones, leukocyte estera se 25, and trace protein. Impression: 1.Hypertension. 2.Hyperlipidemia. 3.Non-elevation myocardial infarction. 4.Urinary tract infection. 5.Generalized weakness. 6.Debility. 7.Osteoarthritis, multiple sites. 8.Retroperitoneal hematoma. 9.Anemia due to acute blood loss. Plan: We will go ahead and continue current aspirin, antihypertensive medication, and statin therapy . Patient's hemoglobin is stable. Yesterday, it was 10.8. Today, it is 10.5. She does not have an y abdominal pain, but she did have some right groin and anterior thigh pain and this is all part of h er psoas muscle hematoma, though as part of the retroperitoneal hemorrhage and she was reassured abou t that. No need for further intervention. She responds well to Tylenol for the pain and will continue that. Continue physical therapy under guidance of Dr. Heller. I will s ee her tomorrow for followup. FABBY/MODL Voice ID: [id number] Report ID: [id number]
--- NOTE | 2022-11-25 19:00 | P.HP ---
Date of Service: 11/25/22 Chief Complaint: Acute myocardial infarction; non STEMI History Of Present Illness: This is an 87-year-old very pleasant female patient, came into emergency room a few days ago with complaints of feeling weak and multiple falls. the patient lives at home with her and she has had multiple falls prior to coming into the hospital. In the emergency room she was found to have elevated heart protein levels and her workup in the hospital with cardiology consultation revealed that patient had non ST-elevation myocardial infarction. Patient was started on anticoagulation. She started having pain in the right lower quadrant and further imaging studies revealed she had developed a retroperitoneal hematoma most likely related to Lovenox injection. Her stress test was negative for stressed induced ischemia. Physical Therapy was consulted and the patient started to ambulate well with the therapy. It was recommended for patient to get physical therapy considering her current problem and multiple recent falls, and different options presented to her and her and she did make a decision to go to inpatient rehab. She was admitted to inpatient rehabilitation yesterday evening. Past Medical History: Significant for peripheral neuropathy hypothyroidism, hyperlipidemia, hypertension, chronic kidney disease, vitamin B12 deficiency, anxiety, depression, insomnia. Past Surgical History: Cataract surgery, LASIK surgery, tonsillectomy, hysterectomy. Allergies: PENICILLIN CAUSING RASH AND GABAPENTIN CAUSING NAUSEA. Medications: Atorvastatin 20 mg daily at bedtime, aspirin 81 mg daily, levothyroxine 100 mcg daily, losartan 50 mg daily, metoprolol 50 mg 2 times a day, and vitamin B12 2000 mg daily. Family History: Father had pancreatic cancer. Mother had ND, diabetes, and hypertension. Sister had breast cancer and diabetes. Social History: Prior history of smoking, not at present time. Use of alcohol negative. Review of Systems: Constitutional: As mentioned above. All other systems reviewed and negative. Physical Examination: Vital Signs: reviewed General: Awake, alert, oriented, not in distress. HEENT: Head atraumatic, normocephalic. Conjunctivae nonerythematous. Sclerae white. Mouth, no thrush or edema noted. Ears/Nose, no mass, lesion, discharge n oted. Neck: Supple. No JVD, lymph nodes, bruit, thyromegaly noted. Lungs: Bilateral good equal air entry. Clear to auscultation. No rhonchi. No rales. Heart: Normal heart sounds, no murmur or gallop. Abdomen: Soft, bowel sounds normal. No guarding, rigidity, tenderness, mass, hepatosplenomegaly, distention, or bruit noted. Extremities: No leg edema. No calf tenderness. Skin: No rash, ulcer, cellulitis. Lymphatics: No lymph node enlargement in neck, supraclavicular, infraclavicular region. Neuro: Generalized weakness; 4/5 in all 4 extremities; marketing copywriter II-XII intact; Sensation intact to light touch; Gait: requiring maximal assistance in getting out of bed and ambulating Laboratory Studies: reviewed X-ray/imaging: reviewed Current Level Of Functioning: Bed mobility requires moderate to maximum assistance for rolling from [id number] in addition to supine to sit with moderate assistance. Maximal assistance to ambulate 20-50 feet Rehabilitation And Medical Assessment And Plan: Pt is a 87-year-old patient admitted to the inpatient rehabilitation unit with multiple falls and retroperitoneal hematoma. His rehabilitation impairment category is 20 miscellaneous. His impairment group is code 16. Debility, noncardiac from pulmonary. Active comorbidities are peripheral neuropathy hypothyroidism, hyperlipidemia, hypertension, chronic kidney disease, vitamin B12 deficiency, anxiety, depression, insomnia, and CAD. His risk of clinical complications include heart ischemia, falls, injuries, bleeding, sepsis, worsening deep vein thrombosis, stroke, infection, and . The patient will have physical and occupational therapy 3 hours a day, 5 of 7 days. She will have the comorbid conditions addressed, which include continuing with cardiac meds and monitoring pain secondary to retroperitoneal hematoma. Impact Of Former Comorbid Conditions: She does have coronary artery disease and generalized weakness. She has a retroperitoneal hematoma with significant pain on ambulation. However, she is very motivated and she is ambulating with maximum assistance to moderate assistance with physical therapy. We were able to talk to her about the reason for admission and she is very motivated to get better so when she goes home she is not following any longer. She does understand her reason for coming into rehab and she would like to work really hard so she can get home as soon as possible. Her risk of falling and suffering a hip fracture as well as her already suffering from a retroperitoneal hematoma which causes her significant pain on ambulation along with her rehabilitation knees makes it less safe for her to be admitted to a lower level facility such as a [facility] facility. Barriers To Discharge: She has suffered a retroperitoneal hematoma which makes it extremely painful when she walks. She has been falling quite a bit at home and will need to make sure she has gait stability prior to discharging Length Of Stay: 1 week Disposition: Expected to be able to go home. Prognosis: Fair. Rehabilitation Goals: 1. To become independent with transfers from bed, to toilet, to shower, and bed mobilization. 2. To be able to independently perform showers. 3. Independently ambulate household distance of 350 feet with a rolling walker. 4. Up and down at least 5 steps independently using hand rails. I acknowledge that I have personally performed a full physical examination on Mr. Garsia within 24 hours of his admission to the rehabilitation unit to determine that he is able to tolerate the above course of treatment at an intensive level for the time outlined. A detailed individualized plan of care for him will be completed by hospital day 4, based on his pre-admission screen, admission history and physical, and therapeutic evaluations.
[2022-11-25] MEDS: ATORVASTATIN 40 MG TAB PO SCH (19:52)
[2022-11-26] MEDS: LEVOTHYROXINE SOD 0.1 MG TAB PO SCH (05:41)
[2022-11-26] MEDS: METOPROLOL TAR 50 MG TAB PO SCH ×2 (08:33→19:29)
[2022-11-26] MEDS: ASPIRIN EC 81 MG TAB PO SCH (08:33)
[2022-11-26] MEDS: methocarbamoL 500 MG TAB PO SCH ×3 (08:34→19:28)
[2022-11-26] MEDS: LOSARTAN POTASSIUM 50 MG TABLET PO SCH (08:34)
--- NOTE | 2022-11-26 13:22 | PN ---
Date of Progress Note: 11/26/2022 Subjective: The patient was seen this morning for followup. No new complaints or problems reported. She was lying in bed. Her was with her. Her son was also present. Denies any new complai nts except reported that she did not sleep at all last night and wanted something to help her with sl eep and also something for the pain and Tylenol works well for her. The patient is also having some pain in the right anterior thigh. Objective: Vital Signs: Reviewed. HEENT: Unremarkable. Lungs: Clear to auscultation. Heart: Sounds normal. Abdomen: Soft. Bowel sounds normal. No guarding, rigidity, tenderness, distention. Extremities: No leg edema. Impression: 1.Retroperitoneal hematoma secondary to Lovenox. 2.Hypertension. 3.Hyperlipidemia. 4.Generalized weakness. 5.Osteoarthritis, multiple sites. 6.Insomnia. Plan: We will go ahead and start her on trazodone 25 mg at bedtime to help with insomnia. The van nt already has Tylenol ordered every 6 hours as needed and she told me that nurse did not give any Ty lenol last night, so I will communicate with the nursing staff to make sure to use Tylenol as per ord er for her pain. Continue current antihypertensive medication, continue aspirin and statin therapy, and I will see her tomorrow for fol lowup. FABBY/MODL Voice ID: [id number] Report ID: [id number]
[2022-11-26] MEDS: ATORVASTATIN 40 MG TAB PO SCH (19:28)
[2022-11-26] MEDS ORDERED: TRAZODONE 50 MG TABLET PO SCH (21:00)
[2022-11-27] MEDS: ACETAMINOPHEN 500 MG TAB PO PRN (00:36)
[2022-11-27] MEDS: LEVOTHYROXINE SOD 0.1 MG TAB PO SCH (05:12)
[2022-11-27] MEDS: methocarbamoL 500 MG TAB PO SCH ×4 (07:56→19:08)
[2022-11-27] MEDS: ASPIRIN EC 81 MG TAB PO SCH (07:56)
[2022-11-27] MEDS: LOSARTAN POTASSIUM 50 MG TABLET PO SCH (07:56)
[2022-11-27] MEDS: METOPROLOL TAR 50 MG TAB PO SCH ×2 (07:56→19:08)
[2022-11-27] MEDS: levoFLOXacin 750 MG TAB PO SCH (09:11)
[2022-11-27] MEDS ORDERED: DOCUSATE NA 100 MG CAP PO PRN (09:43)
[2022-11-27] MEDS ORDERED: DOCUSATE NA/SENNA CONC 1 TAB PO PRN (13:13)
[2022-11-27] MEDS: LIDOCAINE 4% PATCH TOP SCH (13:18)
[2022-11-27] MEDS ORDERED: BISACODYL 10 MG RECTAL SUPP PR PRN (15:02)
[2022-11-27] MEDS: ATORVASTATIN 40 MG TAB PO SCH (19:08)
[2022-11-27] MEDS: QUETIAPINE 25 MG TAB PO SCH (19:09)
[2022-11-27] MEDS: ENSURE ENLIVE 237 ML CAN PO SCH (19:20)
--- NOTE | 2022-11-27 21:11 | PN ---
Date of Progress Note: 11/27/2022 Subjective: Patient was seen this morning for followup. She was sitting in the bed, eating her colby kfast. Denies any complaints this morning except did not sleep well last night at all even with use of trazodone. Patient says she is not getting any rest here and she wants to go home. I explained i t to her importance regarding her rehab stay and encouraged her to talk to her before she jaylen es any decision. She does have some confusion at nighttime, which was reported by nursing staff. Objective: Vital Signs: Reviewed. HEENT: Unremarkable. Lungs: Clear to auscultation. Heart: Sounds normal. Abdomen: Soft. Bowel sounds normal. No guarding, rigidity, tenderness, distention. Extremities: No leg edema. Impression: 1.Urinary tract infection. 2.Generalized weakness. 3.Debility. 4.Osteoarthritis, multiple sites. 5.Hypertension. 6.Retroperitoneal hematoma. 7.Non-elevation myocardial infarction. Plan: We will go ahead and continue current medications, continue current aspirin, statin therapy, c ontinue antihypertensive medications. We will go ahead and continue current antibiotics. Patient di d not respond to trazodone, so we will discontinue that and review some confusion problem at nighttim e. There is a possibility that she may have some underlying dementia problem and we will go ahead an d start her on Seroquel 25 mg at bedtime. See how she responds to that. I will see her tomorrow for followup, and I have asked nursing staff to communicate with the patient's and see if he can convince her to stay in the hospital as recommended. FABBY/MODL Voice ID: [id number] Report ID: [id number]
--- NOTE | 2022-11-28 01:32 | PN ---
Date of Progress Note: 11/27/2022 [facility] Visit Time Of Service: 12 noon. Subjective: Ms. Lehman is in bed. She initially reported no problems, no issues, but intermediate throug h the evaluation, when the patient's family is in the room, she went to sleep and did not wake up to answer further questions. However, she denied any pain or syncope. She did feel like she was doing a lot of therapy, but did not feel it was excessive and nothing that she could not do. Review of Systems: As noted above. From the family, no complaints and she has no fevers, chills, nausea, or vomiting. She has reportedly had constipation with last bowel movement about 5 days now. Normally at home she goes about once a day. Otherwise, she has had a poor appetite and poor hydration per family. Physical Examination: Vital Signs: Blood pressure 144/66, pulse 96, respiratory rate 16, temperature 97.4, and oxygen satu ration 99%. Weight 107 pounds, height 5 feet 1 inch, BMI 20.3. General: Ms. Lehman is lying in bed. She is in no acute distress. HEENT: She appears normocephalic. Sclerae anicteric. Oropharynx is moist. Neck: Supple. Chest: Clear. Heart: Regular. Extremities: No significant edema, cyanosis, or clubbing. She was diffusely weak in upper and lower extremities, but has at least 4/5 strength proximally and distally. Laboratory Studies: White blood cell count 6.3, hemoglobin 10.5, and platelets 209. Chemistries: S odium 136, potassium 3.5, chloride 93, carbon dioxide 24, BUN 21, creatinine 0.97, prealbumin 12.3, a nd albumin 2.7. Urinalysis: 1+ ketone, 1+ blood, 25 esterase, trace protein. COVID-19 testing is n egative. Imaging: No imaging. Medications: Aspirin 81 mg daily, Tylenol 500 mg q.6 hours, Lipitor 40 mg at bedtime, Dulcolax 10 mg per rectum as needed, Colace 100 mg daily, Levaquin 750 mg every 48 hours, levothyroxine 0.1 mg jarad y, lidocaine patch 1 daily, Cozaar 25 mg daily, Robaxin 500 mg 3 times daily, Lopressor 50 mg twice d aily, Ensure Enlive 237 mL twice daily, Zofran 4 mg every 6 hours for nausea, Seroquel 25 mg at bedti me, Senokot-S 2 at bedtime as needed for constipation. Current Level Of Functioning: Currently, she was able to ambulate 500 feet twice, another 175 feet t wice, and then 125 feet twice with contact guard assistance using a rolling walker. She ascended and descended 15 steps with contact guard assistance using bilateral handrails. She did xhsxhs-tc-rwz t ransfers with minimal assistance. She did multiple stand and pivot transfers with contact guard assi stance. She did have some verbal cues required. She was evaluated by Speech Therapy with lobsterman goals of improving attention, memory, safety awareness, and decreased fall risk and maintain independ ent level of functioning as she plans to return home with her . Progress Made With Physical, Occupational And Speech Therapy: She is making excellent progress with physical, occupational, and speech therapy towards her goals of becoming independent with upper and l ower body dressing, transferring, toileting, showering and ambulating 500 feet with independence and up and down 15 steps with independence. Assessment And Plan: Ms. Lehman is an 87-year-old patient in the rehabilitation unit after a non ST- segment elevation myocardial infarction. She has dyslipidemia, hypothyroidism, and hypertension and she is doing excellent with physical, occupational, and speech therapy. Her comorbidities are manage d. For high hypertension with beta kari, metoprolol. She has Levaquin ongoing at this point. No evidence of any systemic infection or pneumonia, this is managed by Dr. Benitez. She has Lipitor for d yslipidemia. She has constipation and she is on Colace in addition to Senokot-S and Dulcolax for con stipation. The lidocaine patch is doing well. Muscle relaxant, Robaxin and Seroquel at night for in somnia. Comorbid Conditions That Continue To Impact Rehabilitation: At this point, she has constipation of 4 days and if need be, she will have a Fleet enema or an oral cocktail, which include prune, pineapple , apple, and warm butter with 2 ounces of each to assist with bowel movements. She does have a great family support and has plans for home and will likely benefit from continued therapy and ideally out patient physical therapy, given how well she is doing so far. LB/JACOB Voice ID: [id number] Report ID: [id number]
[2022-11-28] MEDS: LEVOTHYROXINE SOD 0.1 MG TAB PO SCH (06:44)
[2022-11-28] MEDS: LIDOCAINE 4% PATCH TOP SCH (07:39)
[2022-11-28] MEDS: LOSARTAN POTASSIUM 50 MG TABLET PO SCH (08:04)
[2022-11-28] MEDS: methocarbamoL 500 MG TAB PO SCH ×3 (08:05→19:51)
[2022-11-28] MEDS: METOPROLOL TAR 50 MG TAB PO SCH ×2 (08:05→19:51)
[2022-11-28] MEDS: ASPIRIN EC 81 MG TAB PO SCH (08:06)
[2022-11-28] MEDS: ENSURE ENLIVE 237 ML CAN PO SCH ×2 (08:06→19:52)
[2022-11-28] MEDS: DOCUSATE NA 100 MG CAP PO SCH (08:06)
[2022-11-28] MEDS: QUETIAPINE 25 MG TAB PO SCH (19:51)
[2022-11-28] MEDS: ATORVASTATIN 40 MG TAB PO SCH (19:52)
--- NOTE | 2022-11-28 21:39 | PN ---
Date of Progress Note: 11/28/2022 [facility] Progress Note Visit Time Of Service: 1 p.m. Subjective: Ms. Lehman is in the gym, doing well. She has no new complaints. Review of Systems: No fevers, chills, nausea, vomiting, or myalgias except some pain in the joints, which is managed by pain patches especially in the knees. Reports having a bowel movement. Appetite has improved. Physical Examination: Vital Signs: Blood pressure 133/72, pulse 87, respiratory rate 16, temperature 97.4, and oxygen satu ration 98%. General: Ms. Lehman is in the gym, doing therapy. HEENT: She is normocephalic, atraumatic. Sclerae anicteric. Oropharynx is moist. Neck: Supple. Chest: Clear. Heart: Regular. Extremities: No significant edema, cyanosis, or clubbing. She has improving strength, but still dif fusely weak around 4 to 5. Laboratory Studies: No new laboratory studies. X-ray/imaging: No new x-ray or imaging. Medications: Unchanged. She is still on aspirin 81 mg daily. She has Synthroid for hypothyroidism, Levaquin per Dr. Benitez, Robaxin for muscle spasms, and Seroquel at night for insomnia. Current Functional Status: Currently, she ambulated 500 feet out of 200 feet and 750 with contact gu jaz assistance using a rolling walker. She ascended and descended 15 steps with standby assistance u sing bilateral handrails. With speech therapy, she did recall 3 of the 3 words that were unrelated a fter increments of 1, 5, and 10 minutes. She sustained attention for 3 minutes with completing tasks with 85% accuracy and minimum assistance. Progress Towards Rehabilitation Goals: She is making excellent progress towards the rehabilitation g oals of becoming independent with her transfers, upper and lower body dressing, her mobilization, her cognitive functioning, and her recall or judgment. Assessment: Ms. Lehman is an 87-year-old patient admitted to the rehabilitation unit with a non ST-s egment elevation myocardial infarction and debility. She has comorbidities of dyslipidemia, hypothyr oidism, and hypertension and is doing excellent with physical and occupational therapy. Plan: 1.Continue physical and occupational therapy. 2.Her comorbid conditions are managed by Dr. Benitez. 3.She will continue speech therapy as well. 4.Continue with DVT prophylaxis with aspirin 81 mg daily, mobilization, and SCDs. 5.She also has lidocaine patches for pain. Comorbidities That Continue To Impact Rehabilitation: At this point, she is doing well. She did hav e bowel movements and that improved. She has pain in the joints in the knees and has pain patches th ere and is doing well from that standpoint. Comorbidities are managed by Dr. Benitez. LAUREN/JACOB Voice ID: [id number] Report ID: [id number]
[2022-11-28] MEDS: ACETAMINOPHEN 500 MG TAB PO PRN (22:34)
[2022-11-29] MEDS: LEVOTHYROXINE SOD 0.1 MG TAB PO SCH (06:33)
[2022-11-29] MEDS: LIDOCAINE 4% PATCH TOP SCH (06:55)
[2022-11-29] MEDS: levoFLOXacin 750 MG TAB PO SCH (07:35)
[2022-11-29] MEDS: DOCUSATE NA 100 MG CAP PO SCH (07:35)
[2022-11-29] MEDS: METOPROLOL TAR 50 MG TAB PO SCH ×2 (07:36→19:55)
[2022-11-29] MEDS: ASPIRIN EC 81 MG TAB PO SCH (07:36)
[2022-11-29] MEDS: LOSARTAN POTASSIUM 50 MG TABLET PO SCH (07:36)
[2022-11-29] MEDS: methocarbamoL 500 MG TAB PO SCH ×3 (07:37→19:54)
[2022-11-29] MEDS: ENSURE ENLIVE 237 ML CAN PO SCH (07:38)
[2022-11-29] MEDS: ENSURE CLEAR 200 ML CAN PO SCH ×2 (07:59→19:55)
[2022-11-29] MEDS ORDERED: ENSURE CLEAR 200 ML CAN PO SCH (08:00)
--- NOTE | 2022-11-29 08:50 | PN ---
Date of Progress Note: 11/28/2022 Subjective: The patient was seen this morning for followup. No new complaints or problems reported by the patient. She slept very well last night and slept probably between 5-6 hours after Seroquel d ose that was given for the first time last night. This morning when I saw her, she was sleeping, eas sonya arousable, not in any distress. Denies any new complaints. Obvious confusion that nursing staff has noted while she is on the rehab and I am definitely concerned that she probably may have some un derlying dementia problem, which needs to be evaluated when she is back to her baseline on outpatient basis and then further treatment recommendation will need to wait until that point. Objective: Vital Signs: Reviewed. HEENT: Unremarkable. Lungs: Clear to auscultation. Heart: Sounds normal. Abdomen: Soft. Bowel sounds normal. No guarding, rigidity, tenderness, distention. Extremity: No leg edema. Impression: 1.Hypertension. 2.Non-ST segment elevation myocardial infarction. 3.Hyperlipidemia. 4.Dementia. 5.Insomnia. 6.Urinary tract infection. Plan: We will go ahead and continue Seroquel as she has responded very well. We will also continue current antihypertensive medication and statin therapy. Physical therapy to be provided under guidance of Dr. Heller. I will see her tomorrow for followup. FABBY/MODL Voice ID: [id number] Report ID: [id number]
[2022-11-29] MEDS: ATORVASTATIN 40 MG TAB PO SCH (19:54)
[2022-11-29] MEDS: QUETIAPINE 25 MG TAB PO SCH (19:54)
--- NOTE | 2022-11-29 21:32 | PN ---
Date of Progress Note: 11/29/2022 Time Of Service: 1:00 p.m. Subjective: Ms. Lehman is doing well. She is room, resting between therapy sessions. She has no co mplaints. She is happy with her therapy with lunch and denies any significant pain. Review of Systems: No fevers, chills, nausea, vomiting, myalgias, arthralgias, rash, headache, weight change. No psychi atric complaints. No gas or urinary issues. Physical Examination: Vital Signs: Blood pressure 165/71, pulse 66, respiratory rate 16, temperature 97.2, oxygen saturati on 99%. General: Ms. Lehman is resting comfortably. She is in no acute distress. HEENT: She is normocephalic, atraumatic. Sclerae anicteric. Oropharynx is pink and moist. Neck: Supple. Chest: Clear. Heart: Regular. Extremities: Show no clubbing, cyanosis, or edema. Strength is still 4/5 in the upper and lower ext remities. Laboratory Studies: No new laboratory studies. X-ray imaging: No new x-ray imaging. Medications: Unchanged and reviewed. Current Level Of Functioning: Currently, she ambulated 500 feet and another 750 feet with contact gu jaz assistance using a rolling walker. She ascended and descended 15 steps with contact guard assist ance using bilateral handrails, mobilized wheelchair 150 feet to improve upper extremity strength. S he performed sit to stand transfers with contact guard assistance and multiple stand and pivot transf er with standby assistance. With speech therapy, she recalled 2 of the 3 unrelated words from previo us session without cues. Sustained attention for 2 minutes with 80% accuracy. Progress Towards Rehabilitation Goals: She is making excellent progress towards goals of becoming in dependent with upper and lower body dressing, toileting, transferring, ambulating household distances , way beyond, and exhibiting good sound judgment and improving memory. Assessment: Ms. Lehman is an 87-year-old patient in the rehabilitation unit with non ST-segment elev ation myocardial infarction, debility, and diffuse weakness. She is making excellent progress toward s improving all of her parameters in terms of transfers, gait, strength, coordination. She has dysli pidemia, hypothyroidism, hypertension, and those are well managed by the primary care physician, Dr. Benitez. Plan: 1.Continue with physical and occupational therapy. 2.Continue with management of comorbidities as noted with medications as listed. 3.Continue speech therapy as well. 4.She does have aspirin and mobilization for DVT prophylaxis. 5.Lidocaine patch as needed. Comorbidities That Continue To Impact Rehabilitation Process: At this point, comorbidities are well managed. She has pain patches on the knees from arthritis and she is doing well from that standpoint . LAUREN/JACOB Voice ID: [id number] Report ID: [id number]
[2022-11-29] MEDS: ACETAMINOPHEN 500 MG TAB PO PRN (23:34)
[2022-11-30 05:38] LABS: Absolute Lymphocytes (CBC) 1.3 K/uL (0.7-4.9); Hematocrit 29.6 % (36.0-45.0); Lymphocytes % 11.9 % (15.3-44.8); MCV 84.1 fL (80-100); MPV 6.6 fL (7.6-11.3); RBC Red Blood Cell Count 3.51 M/uL (3.86-4.86)
[2022-11-30 05:52] LABS: Albumin 2.8 g/dL (3.4-5.0); Magnesium 2.1 mg/dL (1.6-2.4); Potassium 3.8 mmol/L (3.5-5.1); Prealbumin 17.6 mg/dL (20-40)
--- NOTE | 2022-11-30 06:32 | PN ---
Date of Progress Note: 11/29/2022 Subjective: The patient was seen this morning for followup. No new complaints or problems reported by the patient, lying in bed, not in any distress. She did not sleep as well last night compared to night before. No abdominal pain. No nausea, no vomiting, no leg pain. Objective: Vital Signs: Reviewed. HEENT: Unremarkable. Lungs: Clear to auscultation. Heart: Sounds normal. Abdomen: Soft. Bowel sounds normal. No guarding, rigidity, tenderness, or distention. Extremities: No leg edema. Impression: 1.Retroperitoneal hematoma. 2.Urinary tract infection. 3.Hypertension. 4.Generalized weakness. 5.Debility. 6.Dementia. Plan: We will go ahead and continue Seroquel at bedtime, continue current antibiotics. Continue cur rent antihypertensive medications. Physical therapy to be continued under guidance of Dr. Heller. We will see how she responds tonight with Seroquel. Depending on that, we will decide whether we ne ed to increase the dose or not, but otherwise currently she is on 25 mg daily at bedtime. FABBY/MODL Voice ID: [id number] Report ID: [id number]
[2022-11-30] MEDS: LEVOTHYROXINE SOD 0.1 MG TAB PO SCH (07:28)
[2022-11-30] MEDS: LIDOCAINE 4% PATCH TOP SCH (08:11)
[2022-11-30] MEDS: DOCUSATE NA 100 MG CAP PO SCH (08:12)
[2022-11-30] MEDS: LOSARTAN POTASSIUM 50 MG TABLET PO SCH (08:12)
[2022-11-30] MEDS: METOPROLOL TAR 50 MG TAB PO SCH ×2 (08:12→19:43)
[2022-11-30] MEDS: methocarbamoL 500 MG TAB PO SCH ×3 (08:13→19:43)
[2022-11-30] MEDS: ASPIRIN EC 81 MG TAB PO SCH (08:13)
[2022-11-30] MEDS: ENSURE CLEAR 200 ML CAN PO SCH ×2 (08:14→19:43)
[2022-11-30 10:51] LABS: Blood Morphology Comment NOT SEEN (NOT SEEN); Platelet Estimate INCR
[2022-11-30] MEDS: QUETIAPINE 25 MG TAB PO SCH (19:43)
[2022-11-30] MEDS: ATORVASTATIN 40 MG TAB PO SCH (19:43)
--- NOTE | 2022-11-30 19:59 | PN ---
Date of Progress Note: 11/30/2022 Subjective: Patient was seen this morning for followup. She was sleeping this morning and easily ar ousable, not in distress and reported that last night, she slept very well and feels better this morn ing. No abdominal pain. No leg pain. Objective: Vital Signs: Reviewed. HEENT: Unremarkable. Lungs: Clear to auscultation. Heart: Sounds normal. Abdomen: Soft. Bowel sounds normal. No guarding, rigidity, tenderness, distention. Extremities: No leg edema. Laboratory Data: White count 10.9, hemoglobin 10, platelets 458. Sodium 143, potassium 3.8, chlorid e 111, bicarb 25, BUN 18, creatinine 0.99, glucose 115. Impression: 1.Hypertension. 2.Urinary tract infection. 3.Retroperitoneal hematoma. 4.Hyperlipidemia. 5.Dementia. Plan: We will continue Seroquel 25 mg daily at bedtime. Continue current antibiotic. Continue curr ent antihypertensive medication. Physical therapy to be continued under guidance of Dr. Heller. H netta, the patient is scheduled to go home day after tomorrow. I will see her tomorrow for followup. FABBY/MODL Voice ID: [id number] Report ID: [id number]
--- NOTE | 2022-11-30 20:39 | PN ---
Date of Progress Note: 11/30/2022 Time Of Service: 1:00 p.m. Subjective: Ms. Lehman is doing well. She has no new complaints. She is happy with lunch. Says pa in is managed. Bowel movements are doing well. Sleep is doing okay. Review of Systems: No fevers, chills, nausea, vomiting, myalgias, arthralgias, rash. No psychiatric complaints. No gen itourinary issues. Physical Examination: Vital Signs: Blood pressure 152/86, pulse 96, respiratory rate 18, temperature 97.6, oxygen saturati on 99%. Weight 107 pounds 11.2 ounces, height 5 feet 1 inch, BMI 20. General: Ms. Lehman is in the gym, doing well. She is in no significant distress. HEENT: She appears normocephalic, atraumatic. Sclerae are anicteric. Oropharynx moist. Neck: Supple. Chest: Clear. Heart: Regular. Laboratory Studies: White blood cell count 10.9, hemoglobin 10.0, platelets 458. Sodium 146, potass ium 3.8, chloride 111, carbon dioxide 25, BUN 18, creatinine 0.99, glucose 115. Prealbumin improved from 12.3 on the 4th to 17.6 on 9th. X-ray imaging: None. Current Level Of Functioning: Ms. Lehman was able ambulate 500 feet once, 125 feet once, and 750 fee t once, all with contact guard assist using a rolling walker. She did need some verbal cues to focus during gait training. She mobilized wheelchair 150 feet with standby assist. Supine to sit transfe rs done with some assistance. Multiple stand and pivot transfers with supervision. With speech ther apy, she recalled 3 unrelated items from the session 2 days ago independently. Patient was provided 3 additional word recall in the sessions and to be checked again in the morning. She used immediate memory for registration of information for later recall with 90% accuracy. Progress Towards Rehabilitation Goals: She is making excellent progress towards her goals. Grooming independent, upper and lower body dressing, toileting, transfer, showering. Ambulating over 500 fee t with modified independence. Up to down 10 steps with modified independence to independence. Assessment: Ms. Lehman is an 87-year-old patient in the rehabilitation unit with non ST-segment elev ation myocardial infarction, debility, diffuse weakness. She has comorbid hypothyroidism, hypertensi on, dyslipidemia. Plan: 1.Continue with physical, occupational therapy, and speech therapy. 2.Continue aggressive management of hypertension. 3.Continue management of hypothyroidism, dyslipidemia that is done by Dr. Benitez. 4.Continue with deep vein thrombosis prophylaxis. 5.Continue lidocaine patch as needed. Comorbidities That Continue To Impact Rehabilitation Process: At this point, her comorbidities are s tably managed including pain with Lidoderm patches and she is not limited at this point. LAUREN/JACOB Voice ID: [id number] Report ID: [id number]
[2022-11-30] MEDS: ACETAMINOPHEN 500 MG TAB PO PRN (21:23)
[2022-12-01] MEDS: LEVOTHYROXINE SOD 0.1 MG TAB PO SCH (06:53)
[2022-12-01] MEDS: LIDOCAINE 4% PATCH TOP SCH (07:58)
[2022-12-01] MEDS: METOPROLOL TAR 50 MG TAB PO SCH ×2 (07:59→20:27)
[2022-12-01] MEDS: methocarbamoL 500 MG TAB PO SCH ×3 (07:59→20:26)
[2022-12-01] MEDS: ASPIRIN EC 81 MG TAB PO SCH (07:59)
[2022-12-01] MEDS: DOCUSATE NA 100 MG CAP PO SCH (08:00)
[2022-12-01] MEDS: LOSARTAN POTASSIUM 50 MG TABLET PO SCH (08:00)
[2022-12-01] MEDS: ENSURE CLEAR 200 ML CAN PO SCH ×2 (08:01→20:26)
[2022-12-01] MEDS: levoFLOXacin 750 MG TAB PO SCH (08:50)
--- NOTE | 2022-12-01 08:51 | P.RH.PN ---
Vital Signs: Last Vital Signs Temp 97.5 F 12/01/22 07:30 Pulse 70 12/01/22 07:59 Resp 18 12/01/22 07:59 BP 152/65 H 12/01/22 07:59 Pulse Ox 99 12/01/22 07:59 Laboratory: Laboratory Last Values WBC 10.90 K/uL (4.3-10.9) 11/30/22 05:20 RBC 3.51 M/uL (3.86-4.86) L 11/30/22 05:20 Hgb 10.0 g/dL (12.0-15.0) L 11/30/22 05:20 Hct 29.6 % (36.0-45.0) L 11/30/22 05:20 MCV 84.1 fL (80-100) 11/30/22 05:20 MCH 28.5 pg (27.0-35.0) 11/30/22 05:20 MCHC 33.9 g/dL (32.0-36.0) 11/30/22 05:20 RDW 13.9 % (12.1-15.2) 11/30/22 05:20 Plt Count 458 K/uL (152-406) H 11/30/22 05:20 MPV 6.6 fL (7.6-11.3) L 11/30/22 05:20 Neutrophils % 80.1 % (41.7-73.7) H 11/30/22 05:20 Lymphocytes % 11.9 % (15.3-44.8) L 11/30/22 05:20 Monocytes % 6.5 % (3.3-12.3) 11/30/22 05:20 Eosinophils % 0.9 % (0-4.4) 11/30/22 05:20 Basophils % 0.6 % (0-1.3) 11/30/22 05:20 Absolute Neutrophils 8.8 K/uL (1.8-8.0) H 11/30/22 05:20 Segmented Neutrophils 73 % (40-80) 11/30/22 05:20 Band Neutrophils 2 % (0-1) H 11/30/22 05:20 Absolute Lymphocytes 1.3 K/uL (0.7-4.9) 11/30/22 05:20 Lymphocytes 12 % (15-42) L 11/30/22 05:20 Monocytes 5 % (0-10) 11/30/22 05:20 Absolute Monocytes 0.7 K/uL (0.1-1.3) 11/30/22 05:20 Eosinophils 2 % (0-3) 11/30/22 05:20 Absolute Eosinophils 0.1 K/uL (0-0.5) 11/30/22 05:20 Absolute Basophils 0.1 K/uL (0-0.5) 11/30/22 05:20 Metamyelocytes 3 % (0-0) H 11/30/22 05:20 Myelocytes 2 % (0-0) H 11/30/22 05:20 Atypical Lymphocytes 3 % 11/25/22 05:18 Toxic Granulation Present 11/25/22 05:18 Platelet Estimate Incr 11/30/22 05:20 Morphology Comment Not seen (NOT SEEN) 11/30/22 05:20 Sodium 143 mmol/L (136-145) 11/30/22 05:20 Potassium 3.8 mmol/L (3.5-5.1) 11/30/22 05:20 Chloride 111 mmol/L (98-107) H 11/30/22 05:20 Carbon Dioxide 25 mmol/L (21-32) 11/30/22 05:20 Anion Gap 10.8 mEq/L (5.0-15.0) 11/30/22 05:20 BUN 18 mg/dL (7-18) 11/30/22 05:20 Creatinine 0.99 mg/dL (0.55-1.02) 11/30/22 05:20 Est GFR (CKD-EPI) 55 ml/min (=/>90) L 11/30/22 05:20 Glucose 115 mg/dL (74-106) H 11/30/22 05:20 Calcium 8.5 mg/dL (8.5-10.1) 11/30/22 05:20 Magnesium 2.1 mg/dL (1.6-2.4) 11/30/22 05:20 Albumin 2.8 g/dL (3.4-5.0) L 11/30/22 05:20 Prealbumin 17.6 mg/dL (20-40) L 11/30/22 05:20 Urine Color Yellow (Yellow) 11/24/22 19:40 Urine Clarity Clear (Clear) 11/24/22 19:40 Urine pH 5.5 (5.0-7.0) 11/24/22 19:40 Ur Specific [place] 1.014 (1.005-1.030) 11/24/22 19:40 Glucose (UA)(Auto) Negative (Negative) 11/24/22 19:40 Urine Ketones 1+ (Negative) H 11/24/22 19:40 Urine Blood 1+ (Negative) H 11/24/22 19:40 Urine Nitrite Negative (Negative) 11/24/22 19:40 Urine Bilirubin Negative (Negative) 11/24/22 19:40 Urine Urobilinogen Normal (Normal) 11/24/22 19:40 Ur Leukocyte Esterase 25 Komal/uL (Negative) H 11/24/22 19:40 Urine RBC <5 /HPF (None Seen) 11/24/22 19:40 Urine WBC <5 /HPF (<5) 11/24/22 19:40 Ur Squamous Epith Cells <5 /HPF (None Seen) 11/24/22 19:40 Urine Bacteria <20 /HPF (<20) 11/24/22 19:40 Urine Mucus Slight /HPF (None Seen) 11/24/22 19:40 Urine Culture Reflexed Not needed 11/24/22 19:40 Urine Total Protein Trace (Negative) H 11/24/22 19:40 SARS-CoV-2 Rap RNA(RT-PCR) Negative (NEGATIVE) 11/27/22 04:50 Weight: 107 lb 11.2 oz Wound Present: No Closed Surgical Incision Present: No Negative Pressure Wound Therapy Present: No Physician Update: Labs reviewed and are stable. Prealbumin improved from 12.3 to 17.6. Her neurtrophils improved to 80%. She is improving very well. Standby assistance with bed mobility, supervision for transfers. Walking 750' with CGA. Up and down 15 steps with independence. She is at safety awareness with shower. Summary: Patient's care plan and nursing home goals have been reviewed and revised as necessary. Please see the Rehabilitation Signature page for all necessary signatures.
--- NOTE | 2022-12-01 14:32 | PN ---
Date of Progress Note: 12/01/2022 Subjective: Patient was seen this morning for followup. No new complaints or problems reported by sravanthi uribe. She was lying in bed, not in any distress. Reports that she slept very well last night. Fe els good this morning. Denies any abdominal pain or leg pain. Objective: Vital Signs: Reviewed. HEENT: Unremarkable. Lungs: Clear to auscultation. Heart: Sounds normal. Abdomen: Soft. Bowel sounds normal. No guarding, rigidity, tenderness, distention. Extremities: No leg edema. Impression: 1.Hypertension. 2.Urinary tract infection. 3.Coronary artery disease. 4.Hyperlipidemia. 5.Retroperitoneal hematoma. Plan: We will go ahead and continue current medication. Continue current Seroquel at nighttime. It is helping her very well and she has responded very well to it. We will continue current antihypert ensive medication and continue physical therapy under guidance of Dr. Heller. She asked me what is wrong with her and what I have treated her for recently and I explained her treatment that we provid ed with the diagnosis on the medical floor and here on the rehab. I will see her tomorrow. She is s cheduled for potential discharge to go home tomorrow. FABBY/MODL Voice ID: [id number] Report ID: [id number]
[2022-12-01] MEDS: ATORVASTATIN 40 MG TAB PO SCH (20:27)
[2022-12-01] MEDS: QUETIAPINE 25 MG TAB PO SCH (20:28)
[2022-12-02] MEDS: LEVOTHYROXINE SOD 0.1 MG TAB PO SCH (05:41)
[2022-12-02 07:39] VITALS: BP 165/67; TEMP 97.6
[2022-12-02] MEDS: ENSURE CLEAR 200 ML CAN PO SCH (08:00)
[2022-12-02] MEDS: ASPIRIN EC 81 MG TAB PO SCH (08:05)
[2022-12-02] MEDS: LIDOCAINE 4% PATCH TOP SCH (08:05)
[2022-12-02] MEDS: DOCUSATE NA 100 MG CAP PO SCH (08:06)
[2022-12-02] MEDS: methocarbamoL 500 MG TAB PO SCH (08:06)
[2022-12-02] MEDS: METOPROLOL TAR 50 MG TAB PO SCH (08:06)
[2022-12-02] MEDS: LOSARTAN POTASSIUM 50 MG TABLET PO SCH (08:06)
--- NOTE | 2022-12-02 13:02 | DS ---
Date of Discharge: 12/02/2022 Disposition: Discharged to go home. Physical Examination: HEENT: Unremarkable. Lungs: Clear to auscultation. Heart: Sounds normal. Abdomen: Soft. Bowel sounds normal. No guarding, rigidity, tenderness, distention. Extremities: No leg edema. Laboratory Data: Last CBC from 11/30/2022, white count 10.9, hemoglobin 10, platelets 458. Sodium 1 43, potassium 3.8, chloride 111, bicarb 25, BUN 18, creatinine 0.99, glucose 115. Discharge Medications And Instructions: 1.Continue all prior home medications. 2.Start aspirin 81 mg 1 tablet by mouth daily. 3.Start Seroquel 25 mg take 1 tablet by mouth daily at bedtime and prescription will be sent to your pharmacy. 4.Follow up at my office next week on . Call office for appointment. Hospital Course: An 87-year-old pleasant female patient admitted to rehab floor after her stay on medical floor. The patient received physical therapy under guidance of Dr. Heller. Her medical problems remained stable. She received her antibiotic for urinary tract infection, and she does not need to go home with any oral antibiotics. She did have some trouble with her sleep at night time an d we did notice some periods of confusion. I suspect she probably has some underlying dementia probl em, and initially, we tried trazodone and that did not help, and subsequently, we started her on Sero quel 25 mg at bedtime that actually has helped her very well to sleep at nighttime. She keeps on ask ing same question multiple times due to her short-term memory problem, and almost every day, she has asked me this question over the last few days stay on the rehab floor is what happened to her and why did she come to the hospital, and why did she have to stay in the hospital for this number of days, so all those details were discussed with her almost on a daily basis when she asked those questions, but she tends to forget that. The patient is doing very well from physical therapy point of view, an d medically, she is stable for discharge today. Final Diagnosis: 1.Non-ST elevation myocardial infarction. 2.Urinary tract infection. 3.Acute blood loss anemia. 4.Retroperitoneal hemorrhage, secondary to Lovenox. 5.Hypertension. 6.Hyperlipidemia. 7.Hypothyroidism. 8.Peripheral neuropathy. 9.Vitamin B12 deficiency. 10.Anxiety. 11.Depression. 12.Insomnia. 13.Chronic kidney disease, stage 3A. 14.Osteoarthritis, multiple sites. FABBY/MODL Voice ID: [id number] Report ID: [id number]
== END 2022-12-02 10:30 | disposition home or self-care (01) | DRG 947 ==
LOC: 5TH 18:03
PROVIDERS: ADMIT Internal Medicine; ATTEND Internal Medicine
DX: R53.81 Other malaise (principal); I21.4 Non-ST elevation (NSTEMI) myocardial infarction; K66.1 Hemoperitoneum; N39.0 Urinary tract infection, site not specified; D62 Acute posthemorrhagic anemia; I25.10 Atherosclerotic heart disease of native coronary artery without angina pectoris; G62.9 Polyneuropathy, unspecified; E03.9 Hypothyroidism, unspecified; E78.5 Hyperlipidemia, unspecified; I12.9 Hypertensive chronic kidney disease with stage 1 through stage 4 chronic kidney disease, or unspecified chronic kidney disease; N18.9 Chronic kidney disease, unspecified; E53.8 Deficiency of other specified B group vitamins; F41.9 Anxiety disorder, unspecified; F32.A Depression, unspecified; G47.00 Insomnia, unspecified; M15.9 Polyosteoarthritis, unspecified; T45.515A Adverse effect of anticoagulants, initial encounter; K59.00 Constipation, unspecified; F03.90 Unspecified dementia, unspecified severity, without behavioral disturbance, psychotic disturbance, mood disturbance, and anxiety; Z87.891 Personal history of nicotine dependence; Z20.822 Contact with and (suspected) exposure to COVID-19
CPT/HCPCS: 36415; 80048; 81001; 82040; 83735; 84134; 85025; 87086; 87088; 92523; 97110; 97116; 97129; 97162; 97165; 97530; 97542; J2001; U0003

== ENCOUNTER 2023-12-05 08:40 | Inpatient (IN) | payer OTHER, MEDICARE ==
[2023-12-05 09:11] LABS: Absolute Lymphocytes (CBC) 0.5 K/uL (0.7-4.9); MCV 88.3 fL (80-100); MPV 7.4 fL (7.6-11.3); Platelets 275 thou/uL (152-406); RBC Red Blood Cell Count 3.63 M/uL (3.86-4.86)
[2023-12-05 09:17] LABS: Protime INR 1.06
[2023-12-05 09:30] LABS: Potassium 4.4 mEq/L (3.5-5.1)
[2023-12-05 09:32] LABS: Blood Morphology Comment NOT SEEN (NOT SEEN); Platelet Estimate ADEQ; White Blood Cell Scan OK (OK)
[2023-12-05 09:34] LABS: Troponin High Sensitivity 190.9 pg/mL (<58.9)
--- NOTE | 2023-12-05 09:34 | RAD REPORT ---
EXAM DESCRIPTION: RAD - Hip Right 2 View - 12/05/2023 9:17 am CLINICAL HISTORY: FALL INJURY COMPARISON: No comparisons TECHNIQUE: Right hip, AP and frog-leg views. FINDINGS: There is no fracture or dislocation. Crescentic radiodense focus in the femoral head may r epresent a small bone island. No acute or destructive bony process seen. IMPRESSION: No acute findings of the right hip.
[2023-12-05] MEDS ORDERED: ONDANSETRON 4 MG/2 ML VIAL ONE ×2 (10:04→10:32)
[2023-12-05] MEDS ORDERED: MORPHINE 2 MG/ML SYR ONE (10:05)
[2023-12-05] MEDS ORDERED: MORPHINE 4 MG/ML SYR ONE (10:32)
--- NOTE | 2023-12-05 11:23 | RAD REPORT ---
EXAM DESCRIPTION: CT - Head C Spine Cap Wo Con - 12/05/2023 9:17 am CLINICAL HISTORY: fall, head/back/pelvic/right hip pain COMPARISON: Head Brain Wo Cont dated 11/20/2022; Abdomen Pelvis Wo Contrast dated 11/22/2022 TECHNIQUE: Head and cervical spine CT images were obtained without IV contrast. Chest, abdomen, and pelvis CT images were obtained without IV contrast. Multiplanar reformats were generated and reviewed . All CT scans are performed using dose optimization technique as appropriate and may include automated exposure control or mA/KV adjustment according to patient size. FINDINGS: CT HEAD: No intracranial hemorrhage, mass effect, or edema. No evidence of acute territorial infarct. Stable f ocus of near CSF density in the right subinsular region, most suggestive of a prominent perivascular space. No midline shift or abnormal fluid collection. The ventricles are normal in caliber and config uration for age. Basal cisterns are patent. Mastoid aircells and paranasal sinuses are clear. No acut e skull fracture. CT CERVICAL SPINE: No acute cervical spine fracture or subluxation. Vertebral body heights are well maintained. Facet isaura ints are normal in alignment. No hyperattenuating canal hematoma. Prevertebral and paraspinous soft t issues are unremarkable. CT CHEST: No pneumothorax, pulmonary contusion or pleural fluid collection. No mediastinal hematoma and the aor ta and pulmonary arteries are unremarkable. No chest will mass or abnormal axillary finding. No displ aced rib fracture or other significant bony finding. CT ABDOMEN/ PELVIS: No evidence of traumatic injury to solid abdominal viscera. Gallbladder and biliary tree are unremark able. No bowel injury or significant finding. Stable colonic diverticulosis. No free air, free fluid or abnormal fat stranding. No urinary bladder abnormality. Superior endplate T4 mild compression deformity with underlying sclerosis, without adjacent paraspino us or prevertebral edema, which therefore may be chronic, but is ultimately of indeterminate age. No other significant bony finding. IMPRESSION: Superior endplate mild compression deformity at T4, favored to be chronic but is ultimat colton of indeterminate age. Please correlate with focal symptoms at that level. No other evidence of acute traumatic findings. Other chronic findings as above.
--- NOTE | 2023-12-05 11:36 | EDPHYS ---
Physician Documentation [facility] Name: Rashmi Lehman Age: 88 yrs Sex: Female : 1935 Arrival Date: 12/05/2023 Time: 08:40 Bed 20 Private MD: Vijay Benitez C ED Physician David Andersen HPI: 12/05 08:57 This 88 yrs old Female presents to ER via Wheelchair with complaints of Fall Injury. rn 08:57 Details of fall: The patient fell from an upright position, while walking. Onset: The rn symptoms/episode began/occurred this morning. Associated injuries: The patient sustained injury to the low back, Right hip. Severity of symptoms: At their worst the symptoms were moderate, in the emergency department the symptoms are unchanged. The patient has experienced similar episodes in the past. reports fall this morning around 6 AM, unwitnessed, history of repeated falls lately without clear etiology. Patient states was walking and then woke up on the floor, concerned that she may have passed out. Denies any medication change. Takes baby aspirin. Reports pain to tailbone and right hip. No recent fever or illness. No vomiting or diarrhea. No cough or shortness of breath. No chest pain.. Historical: - Allergies: 08:43 PENICILLINS; ll1 - PMHx: 08:43 Hypercholesterolemia; Hypertensive disorder; Hypothyroidism; ll1 - Immunization history:: Adult Immunizations up to date. - Social history:: Smoking status: Patient denies any tobacco usage or history of. - Immunization history: Last tetanus immunization: unknown. - Family history:: not pertinent. - Hospitalizations: : No recent hospitalization is reported. ROS: 08:57 Constitutional: Negative for fever, chills, and weight loss, Eyes: Negative for injury, rn pain, redness, and discharge, Neck: Negative for injury, pain, and swelling, Cardiovascular: Negative for chest pain, palpitations, and edema, Respiratory: Negative for shortness of breath, cough, wheezing, and pleuritic chest pain, Abdomen/GI: Negative for abdominal pain, nausea, vomiting, diarrhea, and constipation, Back: Positive for lower back injury and pain MS/Extremity: Positive for right hip pain Skin: Negative for injury, rash, and discoloration, Neuro: Negative for headache, weakness, numbness, tingling, and seizure, Exam: 08:57 Constitutional: This is a well developed, well nourished patient who is awake, alert, rn requires assistance to get into bed Head/Face: Normocephalic, atraumatic. Neck: No midline cervical tenderness Chest/axilla: No rib tenderness or crepitus Cardiovascular: Regular rate and rhythm. No pulse deficits. Respiratory: Speaking full sentences, unlabored. No increased work of breathing, no retractions or nasal flaring. Abdomen/GI: Soft, nontender Back: No midline spinal tenderness. Mild pain sacrum and coccyx MS/ Extremity: Pulses equal, no cyanosis. Painful range of motion right hip without abnormal rotation or shortening Neuro: Awake and alert, GCS 15. Moves all 4 extremities with equal strength. 11:12 ECG was reviewed by the Attending Physician. rn Vital Signs: 08:49 BP 127 / 59; Pulse 95; Resp 16; Temp 97.5(TE); Pulse Ox 98% ; Pain 8/10; ll1 09:15 BP 156 / 62; Pulse 104; Resp 18; Pulse Ox 99% on R/A; Pain 9/10; db 09:30 BP 110 / 55; Pulse 76; Resp 16; Pulse Ox 100% on R/A; db 10:00 BP 144 / 61; Pulse 109; Resp 16; Pulse Ox 99% on R/A; db 11:30 BP 123 / 68; Pulse 91; Resp 18; Pulse Ox 98% on R/A; Pain 0/10; db 12:00 BP 130 / 81; Pulse 101; Resp 18; Pulse Ox 99% on R/A; db 12:30 BP 124 / 71; Pulse 87; Resp 14; Pulse Ox 99% on R/A; db 13:00 BP 126 / 76; Pulse 92; Resp 18; Pulse Ox 99% on R/A; db 13:30 BP 109 / 59; Pulse 92; Resp 18; Pulse Ox 98% on R/A; Pain 0/10; db 14:09 BP 117 / 63; Pulse 85; Resp 17; Pulse Ox 97% on R/A; ll1 08:49 Pain Scale: Adult ll1 09:15 Pain Scale: Adult db 11:30 Pain Scale: Adult db 13:30 Pain Scale: Adult db Fabrice Coma Score: 09:30 Eye Response: spontaneous(4). Motor Response: obeys commands(6). Verbal Response: db oriented(5). Total: 15. Trauma Score (Adult): 09:30 Eye Response: spontaneous(1); Verbal Response: oriented(1); Motor Response: obeys db commands(2); Systolic BP: > 89 mm Hg(4); Respiratory Rate: 10 to 29 per min(4); [place] Score: 15; Trauma Score: 12 MDM: 08:45 Patient medically screened. rn 11:34 Differential diagnosis: abrasion, closed head injury, contusion, fracture, sprain, rn strain, syncope, Acute NE, dehydration. Data reviewed: vital signs, nurses notes, lab test result(s), EKG, radiologic studies, CT scan, plain films, and as a result, I will admit patient. Consideration of Admission/Observation Patient was admitted/placed on observation. Escalation of care including admission/observation considered. Care significantly affected by the following chronic conditions: Hypertension. Counseling: I had a detailed discussion with the patient and/or guardian regarding the historical points, exam findings, and any diagnostic results supporting the discharge/admit diagnosis, lab results, radiology results, the need for further work-up and treatment in the hospital. ED course: Patient without acute traumatic findings. Troponin mildly elevated. No acute ischemia on ECG. Spoke with her doctor Dr. Benitez, will admit for further evaluation and pain control along with cardiology consultation.. 12/05 08:51 Order name: Basic Metabolic Panel; Complete Time: 09:37 rn 12/05 08:51 Order name: CBC with Diff; Complete Time: 09:37 rn 12/05 08:51 Order name: Protime (+inr); Complete Time: 09:25 rn 12/05 08:51 Order name: Ptt, Activated; Complete Time: 09:25 12/05 08:51 Order name: Troponin High Sensitivity; Complete Time: 09:37 rn 12/05 08:51 Order name: Urinalysis w/ reflexes rn 12/05 09:15 Order name: CBC Smear Scan; Complete Time: 09:37 EDMS 12/05 09:37 Order name: BNP; Complete Time: 11:00 ds4 12/05 08:51 Order name: CT Traumagram (Head C Spine CAP wo con); Complete Time: 11:25 rn 12/05 09:12 Order name: Hip Right 2 View; Complete Time: 09:37 EDMS 12/05 08:51 Order name: EKG; Complete Time: 08:51 rn 12/05 11:40 Order name: CONS Physician Consult [facility] 12/05 08:51 Order name: Cardiac monitoring; Complete Time: 10:00 rn 12/05 08:51 Order name: EKG - Nurse/Tech; Complete Time: 10:00 rn 12/05 08:51 Order name: IV Saline Lock; Complete Time: 10:52 rn 12/05 08:51 Order name: Labs collected and sent; Complete Time: 09:04 rn 12/05 08:51 Order name: NPO; Complete Time: 09:04 rn 12/05 08:51 Order name: O2 Per Protocol; Complete Time: 09:04 12/05 08:51 Order name: O2 Sat Monitoring; Complete Time: 09:04 rn EC:12 Rate is 103 beats/min. Rhythm is irregular. QRS [place] is Normal. [place] interval is normal. rn QRS interval is normal. QT interval is normal. No Q waves. No ST changes noted. Clinical impression: Sinus tachycardia and PVC. Interpreted by me. Reviewed by me. Administered Medications: 10:40 Drug: morphine IVP or IV 1 mg IVP once over 2 mins Route: IVP; Infused Over: 2 mins; db Site: left wrist; 11:30 Follow up: Response: No adverse reaction; Pain is decreased db 10:40 Drug: Ondansetron IVP 4 mg IVP once; over 2 minutes Route: IVP; Site: left wrist; db 12:27 Follow up: Response: No adverse reaction db Disposition Summary: 12/05/23 11:36 Hospitalization Ordered Notes: Hospitalization Status: Observation rn Provider: Vijay Benitez rn Location: Telemetry/MedSurg (observation) rn Condition: Stable rn Problem: new rn Symptoms: have improved rn Bed/Room Type: Standard rn Room Assignment: 208(12/05/23 11:44) as6 Diagnosis - Syncope and collapse rn Forms: - Medication Reconciliation Form rn - SBAR form rn - Leadership Thank You Letter rn Signatures: Dispatcher [facility] David Andersen MD MD rn Lewis, Lynsay, RN RN ll1 Azael Cage, RN RN as6 Gracie Hunter RN RN db Corrections: (The following items were deleted from the chart) 11:44 11:36 rn as6
--- NOTE | 2023-12-05 11:36 | ER ---
Nurse's Notes [facility] Name: Rashmi Lehman Age: 88 yrs Sex: Female : 1935 Arrival Date: 12/05/2023 Time: 08:40 Bed 20 Private MD: Vijay Benitez C Diagnosis: Syncope and collapse Presentation: 12/05 08:48 Chief complaint: Patient states: Fell yesterday, hit head. Decided not to come. ll1 Possible syncope episode today, pain to buttocks area. Coronavirus screen: Client denies travel out of the [place] in the last 14 days. At this time, the client does not indicate any symptoms associated with coronavirus-19. Ebola Screen: Patient denies travel to an Ebola-affected area in the 21 days before illness onset. Initial Sepsis Screen: Does the patient meet any 2 criteria? No. Patient's initial sepsis screen is negative. Does the patient have a suspected source of infection? Yes: Bone or joint infection. Risk Assessment: Do you want to hurt yourself or someone else? Patient reports no desire to harm self or others. Onset of symptoms was December 04, 2023. 08:48 Method Of Arrival: Wheelchair ll1 08:48 Acuity: FIONA 3 ll1 09:30 Care prior to arrival: None. Mechanism of Injury: Fall from standing position. Trauma db event details: Injury occurred in the [facility]. Triage Assessment: 08:51 General: Appears uncomfortable, Behavior is calm, cooperative, appropriate for age. ll1 Pain: Complains of pain in buttocks Quality of pain is described as aching. Neuro: Reports a syncopal episode weakness. Musculoskeletal: Reports pain in buttocks area. Injury Description: Head injury Bruise. Trauma Activation: Not Applicable Physician: ED Physician; Name: ; Notified At: ; Arrived At: Physician: General Surgeon; Name: ; Notified At: ; Arrived At: Physician: Radiology; Name: ; Notified At: ; Arrived At: Physician: Respiratory; Name: ; Notified At: ; Arrived At: Physician: Lab; Name: ; Notified At: ; Arrived At: Historical: - Allergies: 08:43 PENICILLINS; ll1 - PMHx: 08:43 Hypercholesterolemia; Hypertensive disorder; Hypothyroidism; ll1 - Immunization history:: Adult Immunizations up to date. - Social history:: Smoking status: Patient denies any tobacco usage or history of. - Immunization history: Last tetanus immunization: unknown. - Family history:: not pertinent. - Hospitalizations: : No recent hospitalization is reported. Screenin:30 [facility] ED Fall Risk Assessment (Adult) History of falling in the last 3 months, db including since admission Yes- single mechanical fall (1 pt) Confusion or Disorientation No (0 pts) Intoxicated or Sedated No (0 pts) Impaired Gait Yes (1 pt) Mobility Assist Device Used Yes (1 pt) Altered Elimination No (0 pt) Score/Fall Risk Level 3 or more points = High Risk Oriented to surroundings, Maintained a safe environment. Abuse screen: Denies threats or abuse. Denies injuries from another. Nutritional screening: No deficits noted. Tuberculosis screening: No symptoms or risk factors identified. Primary Survey: 09:30 NO uncontrolled hemorrhage observed. A: The client is awake and alert. The airway is db patent. The client is alert. Airway: patent. Breathing/Chest: Spontaneous respiratory effort, equal unlabored respirations, breath sounds clear bilaterally, regular pattern, symmetrical chest rise and fall. Respiratory effort: spontaneous. Circulation: No external hemorrhage present. Regular and strong central pulse, skin warm/dry/normal color. Disability Client is alert. Exposure/Environment: A warming method has been applied: A warm blanket has been provided to the patient. Reassessment Alertness and Airway: Awake and alert. The airway is patent. Breathing: Spontaneous respiratory effort, equal unlabored respirations, breath sounds clear bilaterally, regular pattern with symmetrical chest rise and fall. Circulation: No external hemorrhage noted. Regular and strong central pulse, skin warm/dry/normal color. Disability: Alert. Assessment: 09:15 Reassessment: Patient appears in no apparent distress at this time. Patient and/or db family updated on plan of care and expected duration. Pain level reassessed. Patient is alert, oriented x 3, equal unlabored respirations, skin warm/dry/pink. PATIENT REPORTS FALLING EARLY THIS AM. COMPLAINS OF BUTTOCK PAIN. General: Appears in no apparent distress. comfortable, Behavior is calm, cooperative. Pain: Complains of pain in buttocks. Neuro: Level of Consciousness is awake, alert, obeys commands, Oriented to person, place, time, situation. Respiratory: Airway is patent Respiratory effort is even, unlabored, Respiratory pattern is regular, symmetrical. 10:30 Reassessment: Patient appears in no apparent distress at this time. Patient and/or db family updated on plan of care and expected duration. Pain level reassessed. Patient is alert, oriented x 3, equal unlabored respirations, skin warm/dry/pink. DIFFICULTY OBTAINING IV ACCESS. 11:51 Reassessment: Patient appears in no apparent distress at this time. Patient and/or db family updated on plan of care and expected duration. Pain level reassessed. Patient is alert, oriented x 3, equal unlabored respirations, skin warm/dry/pink. REPORT GIVEN TO KORINA MCDOWELL 2ND FLOOR. 12:54 Reassessment: Patient appears in no apparent distress at this time. Patient and/or db family updated on plan of care and expected duration. Pain level reassessed. Patient is alert, oriented x 3, equal unlabored respirations, skin warm/dry/pink. 13:23 Reassessment: Patient appears in no apparent distress at this time. Patient and/or db family updated on plan of care and expected duration. Pain level reassessed. FAMILY IS AT BEDSIDE. 13:55 Reassessment: Patient appears in no apparent distress at this time. Patient and/or db family updated on plan of care and expected duration. Pain level reassessed. Patient is alert, oriented x 3, equal unlabored respirations, skin warm/dry/pink. 13:57 Reassessment: Patient appears in no apparent distress at this time. Patient and/or db family updated on plan of care and expected duration. Pain level reassessed. Patient is alert, oriented x 3, equal unlabored respirations, skin warm/dry/pink. Patient states feeling better. Patient states symptoms have improved. Vital Signs: 08:49 BP 127 / 59; Pulse 95; Resp 16; Temp 97.5(TE); Pulse Ox 98% ; Pain 8/10; ll1 09:15 BP 156 / 62; Pulse 104; Resp 18; Pulse Ox 99% on R/A; Pain 9/10; db 09:30 BP 110 / 55; Pulse 76; Resp 16; Pulse Ox 100% on R/A; db 10:00 BP 144 / 61; Pulse 109; Resp 16; Pulse Ox 99% on R/A; db 11:30 BP 123 / 68; Pulse 91; Resp 18; Pulse Ox 98% on R/A; Pain 0/10; db 12:00 BP 130 / 81; Pulse 101; Resp 18; Pulse Ox 99% on R/A; db 12:30 BP 124 / 71; Pulse 87; Resp 14; Pulse Ox 99% on R/A; db 13:00 BP 126 / 76; Pulse 92; Resp 18; Pulse Ox 99% on R/A; db 13:30 BP 109 / 59; Pulse 92; Resp 18; Pulse Ox 98% on R/A; Pain 0/10; db 14:09 BP 117 / 63; Pulse 85; Resp 17; Pulse Ox 97% on R/A; ll1 08:49 Pain Scale: Adult ll1 09:15 Pain Scale: Adult db 11:30 Pain Scale: Adult db 13:30 Pain Scale: Adult db [place] Coma Score: 09:30 Eye Response: spontaneous(4). Motor Response: obeys commands(6). Verbal Response: db oriented(5). Total: 15. Trauma Score (Adult): 09:30 Eye Response: spontaneous(1); Verbal Response: oriented(1); Motor Response: obeys db commands(2); Systolic BP: > 89 mm Hg(4); Respiratory Rate: 10 to 29 per min(4); Fabrice Score: 15; Trauma Score: 12 ED Course: 08:41 Patient arrived in ED. mr 08:41 Vijay Benitez MD is Private Physician. mr 08:43 Arm band placed on Patient placed in an exam room, on a stretcher. ll1 08:45 David Andersen MD is Attending Physician. rn 08:49 Triage completed. ll1 09:04 Initial lab(s) drawn, by me, sent to lab. Missed attempt(s): 22 gauge in left forearm. ll1 Bleeding controlled, band aid applied, catheter tip intact. 09:16 Hip Right 2 View In Process Unspecified. EDMS 09:18 CT Traumagram (Head C Spine CAP wo con) In Process Unspecified. EDMS 09:30 Client placed on continuous cardiac and pulse oximetry monitoring. NIBP monitoring db applied. Warm blanket given. 09:32 Gracie Hunter, RN is Primary Nurse. db 09:35 Notified ED physician of a critical lab result(s). Troponin 190.9. ll1 10:40 Inserted saline lock: 22 gauge in left wrist, using aseptic technique. Blood collected. db 11:35 Vijay Benitez MD is Hospitalizing Provider. rn 11:57 Patient has correct armband on for positive identification. Bed in low position. Call db light in reach. Side rails up X2. 11:58 No provider procedures requiring assistance completed. Patient admitted, IV remains in db place. 11:59 Patient maintains SpO2 saturation greater than 95% on room air. Thermoregulation: warm db blanket given to patient. 14:09 Provided Education on: need for admit. ll1 Administered Medications: 10:40 Drug: morphine IVP or IV 1 mg IVP once over 2 mins Route: IVP; Infused Over: 2 mins; db Site: left wrist; 11:30 Follow up: Response: No adverse reaction; Pain is decreased db 10:40 Drug: Ondansetron IVP 4 mg IVP once; over 2 minutes Route: IVP; Site: left wrist; db 12:27 Follow up: Response: No adverse reaction db Medication: 11:58 VIS not applicable for this client. db Intake: 12:53 PO: 0ml; Total: 0ml. db Output: 12:53 Urine: 0ml; Total: 0ml. db Outcome: 11:36 Decision to Hospitalize by Provider. rn 11:58 Admitted to ER Hold. Please see [facility] for further documentation. db 11:58 Condition: stable 11:58 Instructed on the need for admit, 11:58 Patient's length of stay was not longer than 2 hours. db 14:10 Patient left the ED. ll1 Signatures: Dispatcher [employer] EDCO Dia Moise, Reg Reg David Rodriguez MD MD rn Lewis, Lynsay, RN RN 1 Gracie Hunter RN RN db Corrections: (The following items were deleted from the chart) 08:51 08:49 BP 127 / 59; Pulse 95bpm; Resp 16bpm; Pulse Ox 98%; Temp 98F; ll1 ll1 12:27 09:15 BP 156 / 62; Pulse 104bpm; Resp 18bpm; Pulse Ox 99% RA; db db 12:27 11:30 BP 123 / 68; Pulse 91bpm; Resp 18bpm; Pulse Ox 98% RA; db db
[2023-12-05] MEDS ORDERED: ONDANSETRON 4 MG/2 ML VIAL IV PRN (14:36)
[2023-12-05 15:01] VITALS: O2SAT 97
[2023-12-05] MEDS: ACETAMINOPHEN 500 MG TAB PO PRN (17:17)
[2023-12-05 17:58] VITALS: BMI 19.5
[2023-12-05] MEDS: MORPHINE 2 MG/ML SYR IV PRN (18:09)
[2023-12-05] MEDS: ENOXAPARIN 30 MG/0.3 ML SQ ONE (22:49)
[2023-12-06 00:30] LABS: Specific Gravity 1.028 (1.005-1.030); Urine Bacteria 20-50 /HPF (<20); Urine Bilirubin NEGATIVE (Negative); Urine Blood Negative (Negative); Urine Clarity Turbid (Clear); Urine Color Yellow (Yellow); Urine Glucose NEGATIVE (Negative); Urine Mucus 1+ /HPF (None Seen); Urine Protein TRACE (Negative); Urine RBC <5 /HPF (None Seen); Urine Urobilinogen Normal (Normal); Urine pH 5.5 (5.0-7.0)
[2023-12-06 03:47] LABS: Absolute Lymphocytes (CBC) 0.9 K/uL (0.7-4.9); Hematocrit 32.6 % (36.0-45.0); Lymphocytes % 11.2 % (15.3-44.8); MCV 88.9 fL (80-100); MPV 7.9 fL (7.6-11.3); Platelets 295 thou/uL (152-406); RBC Red Blood Cell Count 3.66 M/uL (3.86-4.86)
[2023-12-06 04:00] LABS: Albumin 3.5 g/dL (3.4-5.0); Bilirubin Total 0.6 mg/dL (0.2-1.0); Protein, Total 6.1 g/dL (6.4-8.2)
[2023-12-06 04:10] LABS: Thyroid Stimulating Hormone 43.2 uIU/mL (0.358-3.740)
[2023-12-06] MEDS: LEVOTHYROXINE SOD 0.1 MG TAB PO SCH (05:34)
--- NOTE | 2023-12-06 06:10 | HP ---
Date of Admission: 12/05/2023 Chief Complaint: Fall. History Of Present Illness: This is an 88-year-old female patient, who lives at home with her , came into emergency room after she fell down multiple times at home. After she was evaluated in the emergency room, she was admitted to the hospital. The patient's troponin level was elevated, which was noted in the emergency room and since that time, we have 2 more troponin levels and they have slightly gone up compared to the initial troponin level. Allergies: TO PENICILLIN CAUSING RASH AND GABAPENTIN CAUSING NAUSEA. Medications: Atorvastatin 20 mg p.o. daily at bedtime, aspirin 81 mg daily, levothyroxine 100 mcg daily, losartan 50 mg daily, metoprolol tartrate 50 mg 2 times a day, vitamin B12 2 mg daily. Review of Systems: LITHOGRAPH DESIGNER: Impaired memory and confusion. Constitutional: As mentioned above. All other systems reviewed and negative. Past Medical History: Significant for hypothyroidism, hypertension, chronic kidney disease stage IIIA, leg edema, hyperlipidemia, peripheral neuropathy, vitamin B12 deficiency anemia, coronary artery disease, urge incontinence, senile dementia, osteoarthritis at multiple sites, generalized weakness, and debility. Past Surgical History: Tonsillectomy, cataract surgery, hysterectomy. Family History: Father had pancreatic cancer. Mother had [place], diabetes, hypertension, Alzheimer's disease. Sister had breast cancer and diabetes. Social History: Prior history of smoking. Use of alcohol negative. Physical Examination: Vital Signs: Height 5 feet 3 inches, weight 110 pounds, temperature 98.3, pulse 86, respiratory rate 20, blood pressure 135/62, oxygen saturation 97%. General: The patient was found lying in bed, sleeping, not in distress. She woke up, but did not answer any specific questions. HEENT: Head atraumatic, normocephalic. Conjunctivae nonerythematous. Sclerae white. Mouth, no thrush or edema noted. Ears/Nose, no mass, lesion, discharge noted. Neck: Supple. No JVD, lymph nodes, bruit, thyromegaly noted. Lungs: Bilateral good equal air entry. Clear to auscultation. No rhonchi. No rales. Heart: Normal heart sounds, no murmur or gallop. Abdomen: Soft, bowel sounds normal. No guarding, rigidity, tenderness, mass, hepatosplenomegaly, distention, or bruit noted. Extremities: No leg edema. No calf tenderness. Skin: No rash, ulcer, cellulitis. Lymphatics: No lymph node enlargement in neck, supraclavicular, infraclavicular region. Neuro: No focal neurological deficit. Chest: Unremarkable. External Genitalia: Deferred. Rectal: Deferred. Laboratory Data: White count 8.2, hemoglobin 10.9, platelets 275. Sodium 138, potassium 4.4, chloride 109, bicarb 22, BUN 29, creatinine 1.27, glucose 136. Troponin first set was 190.9, second set 194.7, and last one 214.6. ProBNP 190. X-ray of the right hip was negative for any acute fracture. CAT scan of the head, cervical spine, chest, abdomen, pelvis, shows compression fracture of T4 spine and changes of diverticulosis. Impression: 1. Compression fracture, T4 spine. 2. Diverticulosis. 3. Abnormal cardiac enzymes. 4. Coronary artery disease. 5. Hypertension. 6. Hyperlipidemia. 7. Senile dementia. 8. Hypothyroidism. 9. Vitamin B12 deficiency anemia. 10. Chronic kidney disease stage IIIA. 11. Peripheral neuropathy. 12. Osteoarthritis, multiple sites. Plan: We will go ahead and admit the patient to hospital for further evaluation and management of this problem. The patient is appropriate for inpatient and is expected to spend 2 midnights in hospital. Fall precaution was ordered. We will consult Physical Therapy to help ambulate her starting tomorrow. We will not give any pain medication unless it is necessary. For her hypertension, we will continue her antihypertensive medication per order. Monitor blood pressure if necessary adjust antihypertensive medication. For her hypothyroidism, we will continue levothyroxine per order and no need for further intervention. For hyperlipidemia, we will continue her statin therapy per order. For abnormal troponin level, which could be demand ischemia at this point, we will go ahead and continue aspirin and consult Cardiology. Start Lovenox per order as well as we will get echo with Doppler tomorrow. I will see her tomorrow for followup. FABBY/JACOB Voice ID: [id number] MTDD
[2023-12-06] MEDS: NACHLORIDE 0.45% 1,000 ML IV SCH (10:01)
[2023-12-06] MEDS: ASPIRIN EC 81 MG TAB PO SCH (10:16)
[2023-12-06] MEDS: LOSARTAN POTASSIUM 50 MG TABLET PO SCH (10:16)
[2023-12-06] MEDS: METOPROLOL TAR 50 MG TAB PO SCH (10:17)
--- NOTE | 2023-12-06 14:42 | EKG ---
Test Date: 2023-12-05 Test Time: 09:53:51 [place] [employer] Supervisor: MESHA MEASUREMENT RESULTS: Intervals: Rate: 105 WY: 92 QRSD: 74 QT: 348 QTc: 459 [place]: P: 79 WY: 92 QRS: 66 T: 122 INTERPRETIVE STATEMENTS: Sinus tachycardia with short [place] with premature supraventricular complexes with occasional premature ventricular complexes Nonspecific ST and T wave abnormality Abnormal ECG Compared to ECG 12/05/2023 09:53:15 Atrial premature complex(es) now present Short WY interval now present ST (T wave) deviation still present Electronically Signed On 12-06-23 14:41:00 COMMERCIAL ACCOUNT EXECUTIVE by Luac Frias
--- NOTE | 2023-12-06 14:42 | EKG ---
Test Date: 2023-12-05 Test Time: 09:54:40 Arranging Funeral Director: MESHA MEASUREMENT RESULTS: Intervals: Rate: 103 OK: 128 QRSD: 74 QT: 342 QTc: 448 [place]: P: 65 OK: 128 QRS: 60 T: 217 INTERPRETIVE STATEMENTS: Sinus tachycardia with premature supraventricular complexes with occasional premature ventricular complexes Nonspecific ST and T wave abnormality Abnormal ECG Compared to ECG 12/05/2023 09:53:51 Short [place] interval no longer present ST (T wave) deviation still present Electronically Signed On 12-06-23 14:40:57 MACHINE REPAIRMAN by Luca Frias
--- NOTE | 2023-12-06 14:43 | EKG ---
Test Date: 2023-12-05 Test Time: 09:53:15 Project Coach: MESHA MEASUREMENT RESULTS: Intervals: Rate: 106 TN: 116 QRSD: 68 QT: 334 QTc: 443 [place]: P: 82 TN: 116 QRS: 64 T: 166 INTERPRETIVE STATEMENTS: Sinus tachycardia with occasional premature ventricular complexes Nonspecific ST and T wave abnormality Abnormal ECG Compared to ECG 11/26/2022 10:24:50 Ventricular premature complex(es) now present ST (T wave) deviation now present Sinus rhythm no longer present Atrial premature complex(es) no longer present Short [place] interval no longer present T-wave abnormality no longer present Prolonged QT interval no longer present Electronically Signed On 12-06-23 14:41:03 METROLOGIST by Luca Frias
[2023-12-06] MEDS: ENOXAPARIN 30 MG/0.3 ML SQ SCH (17:17)
--- NOTE | 2023-12-06 17:20 | P.CNS ---
Date of Consult: 12/06/23 History of Present Illness: 88 y/o female with PMH of HTN, HLD and dementia presented with fall, cardiology was consulted due to mild elevated troponin, patient denies having chest pain, no SOB. Allergies Penicillins Adverse Reaction (Verified 11/26/22 09:59) Shortness of breath Home Medications: Atorvastatin Calcium [Lipitor] 20 mg PO BEDTIME 11/20/22 Levothyroxine [Synthroid] 100 mcg PO [id number] 11/20/22 Losartan Potassium [Cozaar] 50 mg PO DAILY 11/20/22 Metoprolol Tartrate [Lopressor] 50 mg PO BID 11/20/22 - Past Medical/Surgical History Diabetic: No -: hypertension -: hyperlipidemia -: 11/20/22 NSTEMI -: 11/20/22 gematoma of rt Iliac muscle -: breast lump removal -: hysterectomy x 40 yrs aog - Family History Father Medical History: Cancer - Social History Alcohol use: No CD- Drugs: No Caffeine use: Yes Place of Residence: Home Review of Systems 10-point ROS is otherwise unremarkable Physical Examination Temp Pulse Resp BP Pulse Ox 98.1 F 70 16 111/53 L 99 12/06/23 16:00 12/06/23 16:00 12/06/23 16:00 12/06/23 16:00 12/06/23 16:00 General: Alert HEENT: Atraumatic Neck: Supple Respiratory: Clear to auscultation bilaterally Cardiovascular: No edema, Normal S1 S2 Gastrointestinal: Normal bowel sounds - Problems (1) Type 2 [place] (myocardial infarction) Current Visit: Yes Status: Acute Plan: patient denies having any chest pain with recent normal stress test and echo no need for further cardiac work up continue ASA, losartan 50 daily, metoprolol 50 mg po BID and lipitor 20 mg daily.
[2023-12-06] MEDS: ATORVASTATIN 20 MG TAB PO SCH (21:13)
--- NOTE | 2023-12-06 21:43 | PN ---
Date of Progress Note: 12/06/2023 Subjective: The patient was seen this morning for followup. No new complaints or problems reported by her. Lying in bed, not in distress. She was awake, alert, not completely oriented, not in any di stress. Objective: Vital Signs: Reviewed. HEENT: Unremarkable. Lungs: Clear to auscultation. Heart: Sounds normal. Abdomen: Soft. Bowel sounds normal. No guarding, rigidity, tenderness, distention. Extremities: No leg edema. Laboratory Data: White count 7.9, hemoglobin 11.2, platelets 295. Sodium 139, potassium 4, chloride 111, bicarb 26, BUN 27, creatinine 1.35, glucose 106. Liver function tests unremarkable. TSH eleva dane at 43.2. Impression: 1.Fall. 2.Senile dementia. 3.Hypothyroidism. 4.Hypertension. 5.Abnormal cardiac enzymes. Plan: We will go ahead and follow up with lease purchase truck driver. Continue Lovenox. Continue current home me dications. Echo with Doppler will be done today and I have asked the patient's family to bring her l evothyroxine medications from home, so we can review to see if she is taking medications regularly at home or not because I suspect that her elevated TSH is likely due to noncompliance with her medication. FABBY/MODL Voice ID: [id number] Report ID: [id number]
[2023-12-07 04:06] LABS: Potassium 4.2 mEq/L (3.5-5.1)
--- NOTE | 2023-12-07 06:51 | ECHO ---
HEIGHT: 5 ft 3 in WEIGHT: 110 lb 0 oz DATE OF STUDY: 12/06/[address]: Meng Benitez MD 2-DIMENSIONAL: YES M.MODE: YES DOPPLER: YES COLOR FLOW: YES TDS: NO PORTABLE: YES DEFINITY: NO BUBBLE STUDY: NO DIAGNOSIS: HIGH TROPONIN CARDIAC HISTORY: CATHERIZATION: NO SURGERY: NO PROSTHETIC VALVE: NO PACEMAKER: NO MEASUREMENTS (cm) DIASTOLIC (NORMALS) SYSTOLIC (NORMALS) IVSd 1.2 (0.6-1.2) LA Diam 2.8 (1.9-4.0) LVEF 78% LVIDd 3.5 (3.5-5.7) LVIDs 1.9 (2.0-3.5) %FS 46% LVPWd 1.2 (0.6-1.2) Ao Diam 3.3 (2.0-3.7) 2 DIMENSIONAL ASSESSMENT: RIGHT ATRIUM: NORMAL LEFT ATRIUM: NORMAL RIGHT VENTRICLE: NORMAL LEFT VENTRICLE: NORMAL TRICUSPID VALVE: MILD TRICUSPID REGURGITATION MITRAL VALVE: MILD MITRAL REGURGITATION PULMONIC VALVE: NORMAL AORTIC VALVE: MILD AORTIC INSUFFICIENCY PERICARDIAL EFFUSION: NONE AORTIC ROOT: NORMAL LEFT VENTRICULAR WALL MOTION: NORMAL. DOPPLER/COLOR FLOW: SEE BELOW. COMMENTS: 1. NORMAL LEFT VENTRICULAR EJECTION FRACTION 60-65% WITH NORMAL WALL MOTION. 2. GRADE I DIASTOLIC DYSFUNCTION. 3. MILD MITRAL REGURGITATION 4. MILD TRICUSPID REGURGITATION 5. MILD AORTIC INSUFFICIENCY TECHNOLOGIST: LILIA ESTRADA
--- NOTE | 2023-12-07 13:34 | PN ---
Date of Progress Note: 12/07/2023 Subjective: The patient was seen this morning for followup. She was lying in bed, not in any distre ss, sleeping, easily arousable. Denies any new complaints. Objective: Vital Signs: Reviewed. HEENT: Unremarkable. Lungs: Clear to auscultation. Heart: Sounds normal. Abdomen: Soft. Bowel sounds normal. No guarding, rigidity, tenderness, distention. Extremities: No leg edema. Laboratory Data: Sodium 139, potassium 4.2, chloride 110, bicarb 26, BUN 28, creatinine 1.03, glucos e 105. Echocardiogram done yesterday shows ejection fraction 78%, grade 1 diastolic dysfunction, mil d mitral tricuspid and aortic regurgitation. Impression: 1.Compression fracture, T4 spine. 2.Abnormal cardiac enzymes. 3.Coronary artery disease. 4.Hypertension. 5.Hyperlipidemia. 6.Senile dementia. 7.Chronic kidney disease, stage 3A. Plan: Cardiology consultation is appreciated. The patient's condition is stable and we will go ahea d and communicate with the patient's regarding discharge planning. The patient is now ready for discharge and will have to communicate with to see whether she would like to go ahead and consider correction facility placement or some other opti ons. FABBY/MODL Voice ID: [id number] Report ID: [id number]
[2023-12-07 16:40] VITALS: BP 175/72; TEMP 97.6
[2023-12-07] MEDS ORDERED: QUETIAPINE 25 MG TAB PO SCH (21:00)
--- NOTE | 2023-12-08 10:11 | DS ---
Date of Discharge: 12/07/2023 Disposition: Discharged to go to inpatient rehab. Physical Examination: HEENT: Unremarkable. Lungs: Clear to auscultation. Heart: Sounds normal. Abdomen: Soft. Bowel sounds normal. No guarding, rigidity, tenderness, distention. Extremities: No leg edema. Discharge Medications And Instructions: See copy of discharge order and transfer order for details. Advanced directives: [id number] as per my discussion with the patient and her who wa s in room today. After I saw her earlier today, I went back into the patient's room and her was there and we did talk about advance directive in presence of her and the patient and her they both agree with the decision that the patient has made in the past, which is in the even t of cardiopulmonary arrest, she does not want any heroic measures like CPR, defibrillation, or venti lator support, so DNR order will be written in the chart. Hospital Course: This is an 88-year-old female patient who was brought into emergency room with mult iple falls at home. The patient lives at home with and lately she has had multiple falls wit h worsening generalized weakness and she was brought into emergency room. After she was evaluated, s he was admitted to the hospital. The patient was noted to have compression fracture of T4 spine, but she is not really having any pain related to this, so no need for any further intervention. Physica l Therapy was consulted while she was in the hospital. She has not been able to ambulate independent ly and in fact today when I saw her, she was noted to have significant generalized weakness to the ex tent that I was trying to assist her, she had hard time standing up. She was able to stand up, but r equired some assistance as she was not stable on her feet and was not able to ambulate independently. I did talk to regarding possibility of trying to get her to fifth floor to inpatient rehab versus [facility] facility and the patient and her they both had expressed desire to go to inpatient rehab if possible and Social Service was contacted and rehab was consulted and the van nt was accepted to go to rehab, so she was transferred in stable condition to inpatient rehab where I will continue to follow up. Cardiology consultation was requested from Dr. Frias, no further inter vention was suggested by him. The patient's cardiac enzymes were noted to be elevated, which was tho ught to be due to stress-induced ischemia and not a myocardial infarct. Echocardiogram done during t his hospitalization showed normal ejection fraction. No evidence of any wall motion abnormality. I did communicate with the patient's regarding medications and he informed me that the patien donnie is not taking medications at home regularly including her thyroid medication and I have instructed the patient and her that from now on, the patient's to manage her medications, so agueda t way, at least her compliance is more reassured. Final Diagnoses: 1.Compression fracture, T4 spine. 2.Coronary artery disease. 3.Abnormal cardiac enzymes. 4.Hypertension. 5.Hyperlipidemia. 6.Senile dementia. 7.Hypothyroidism, noncompliance to therapy. 8.Vitamin B12 deficiency anemia. 9.Diverticulosis. 10.Chronic kidney disease, stage 3A. 11.Peripheral neuropathy. 12.Osteoarthritis, multiple sites. FABBY/MODL Voice ID: [id number] Report ID: [id number]
== END 2023-12-07 16:57 | DRG 551 ==
LOC: ER 08:40 → 2ND 11:37 → OBSVTOIN 21:41
PROVIDERS: ADMIT Internal Medicine; ATTEND Internal Medicine
DX: S22.049A Unspecified fracture of fourth thoracic vertebra, initial encounter for closed fracture (principal); I21.A1 Myocardial infarction type 2; E03.9 Hypothyroidism, unspecified; E78.00 Pure hypercholesterolemia, unspecified; I12.9 Hypertensive chronic kidney disease with stage 1 through stage 4 chronic kidney disease, or unspecified chronic kidney disease; N18.31 Chronic kidney disease, stage 3a; M19.09 Primary osteoarthritis, other specified site; K57.90 Diverticulosis of intestine, part unspecified, without perforation or abscess without bleeding; G62.9 Polyneuropathy, unspecified; D51.9 Vitamin B12 deficiency anemia, unspecified; I08.0 Rheumatic disorders of both mitral and aortic valves; F03.90 Unspecified dementia, unspecified severity, without behavioral disturbance, psychotic disturbance, mood disturbance, and anxiety; I25.10 Atherosclerotic heart disease of native coronary artery without angina pectoris; R29.6 Repeated falls; Z66 Do not resuscitate; Z88.0 Allergy status to penicillin; Z79.82 Long term (current) use of aspirin; Z91.81 History of falling; Z79.890 Hormone replacement therapy; Z90.710 Acquired absence of both cervix and uterus; Z79.899 Other long term (current) drug therapy; Z91.148 Patient's other noncompliance with medication regimen for other reason; W18.30XA Fall on same level, unspecified, initial encounter; Y93.01 Activity, walking, marching and hiking; Y99.9 Unspecified external cause status; Y92.9 Unspecified place or not applicable
CPT/HCPCS: 36415; 70450; 71250; 72125; 80048; 80053; 80061; 81001; 83880; 84439; 84443; 84484; 85025; 85610; 85730; 93005; 93306; 96374; 96375; 97110; 97112; 97116; 97161; 97530; 99285; G0378; J1650; J2270; J2405

== ENCOUNTER 2024-03-21 13:52 | Emergency (ER) | payer MEDICARE, OTHER ==
[2024-03-21] MEDS ORDERED: CEPHALEXIN 250 MG CAP ONE (14:31)
[2024-03-21] MEDS ORDERED: DERMABOND SKIN ADHESIVE TOP ONE (14:31)
--- NOTE | 2024-03-21 15:31 | ER ---
Nurse's Notes [facility] Name: Rashmi Lehman Age: 88 yrs Sex: Female : 1935 Arrival Date: 03/21/2024 Time: 13:52 Bed 8 Private MD: Vijay Benitez C Diagnosis: Fall on same level, unspecified;Laceration without foreign body of other part of head-right brow;Fracture of orbital floor;Fracture of malar, maxillary and zygoma bones Presentation: 03/21 13:55 Chief complaint: Patient states: pt fell and hit her face. pt states she doesn't as6 remember her falling. possible LOC. no blood thinners. Coronavirus screen: At this time, the client does not indicate any symptoms associated with coronavirus-19. Ebola Screen: No symptoms or risks identified at this time. Initial Sepsis Screen: Does the patient meet any 2 criteria? No. Patient's initial sepsis screen is negative. Does the patient have a suspected source of infection? No. Patient's initial sepsis screen is negative. Risk Assessment: Do you want to hurt yourself or someone else? Patient reports no desire to harm self or others. Onset of symptoms was March 21, 2024. 13:55 Method Of Arrival: Ambulatory as6 13:55 Acuity: FIONA 3 as6 Historical: - Allergies: 13:58 PENICILLINS; as6 - PMHx: 13:58 Hypercholesterolemia; Hypertensive disorder; Hypothyroidism; as6 - PSHx: 13:58 Total abdominal hysterectomy; Tonsillectomy; eye; as6 - Immunization history:: Adult Immunizations up to date. - Infectious Disease History:: Denies. - Social history:: Smoking status: Patient denies any tobacco usage or history of. Screenin:30 [facility] ED Fall Risk Assessment (Adult) History of falling in the last 3 months, nj1 including since admission Yes- single mechanical fall (1 pt) Confusion or Disorientation No (0 pts) Intoxicated or Sedated No (0 pts) Impaired Gait Yes (1 pt) Mobility Assist Device Used No (0 pt) Altered Elimination No (0 pt) Score/Fall Risk Level 0 - 2 = Low Risk Oriented to surroundings, Maintained a safe environment, Hourly rounding (assess needs \T\ fall precautionary measures) done. 14:30 Abuse screen: Denies threats or abuse. Denies injuries from another. Nutritional nj1 screening: No deficits noted. Tuberculosis screening: No symptoms or risk factors identified. Assessment: 14:30 General: Appears in no apparent distress. uncomfortable, Behavior is calm, cooperative, nj1 appropriate for age. 14:30 Pain: Complains of pain in face. Neuro: Level of Consciousness is awake, alert, obeys nj1 commands, Oriented to person, place, time, situation. Cardiovascular: Patient's skin is warm and dry. Respiratory: Airway is patent Respiratory effort is even, unlabored. Injury Description: Laceration sustained to right eye is 0.5 to 2.5 cm long. 16:00 Reassessment: Patient appears in no apparent distress at this time. Patient is alert, nj1 oriented x 3, equal unlabored respirations, skin warm/dry/pink. Vital Signs: 13:55 BP 187 / 108; Pulse 100; Resp 16 S; Temp 97.4(TE); Pulse Ox 99% on R/A; Weight 47.63 as6 kg; Height 5 ft. 1 in. (R); Pain 5/10; 16:00 BP 183 / 88; Pulse 83; Resp 17; Pulse Ox 98% on R/A; nj1 13:55 Body Mass Index 19.84 (47.63 kg, 154.94 cm) as6 13:55 Pain Scale: Adult as6 [place] Coma Score: 15:23 Eye Response: spontaneous(4). Motor Response: obeys commands(6). Verbal Response: daniel oriented(5). Total: 15. ED Course: 13:53 Patient arrived in ED. rg4 13:54 Vijay Benitez MD is Private Physician. rg4 13:58 Triage completed. as6 13:59 Arm band placed on. as6 14:01 Patrizia Marshall, KORINA is Primary Nurse. nj1 14:05 Ancelmo Parrish MD is Attending Physician. daniel 14:30 Patient has correct armband on for positive identification. Bed in low position. Call nj1 light in reach. 14:30 Provided Education on: call light, fall precautions. nj1 14:39 CT Head C Spine In Process Unspecified. EDMS 15:57 Gloria Sotomayor MD is Referral Physician. daniel 16:30 No provider procedures requiring assistance completed. nj1 16:30 Patient did not have IV access during this emergency room visit. nj1 Administered Medications: 15:03 Drug: Cephalexin PO 500 mg PO once Route: PO; jose alejandro 16:12 Follow up: Response: No adverse reaction nj1 16:00 Drug: Acetaminophen PO 650 mg PO once Route: PO; nj1 Medication: 16:30 VIS not applicable for this client. nj1 Outcome: 15:31 Discharge ordered by . daniel 16:30 Discharged to home via wheelchair, with significant other, nj1 16:30 Condition: stable 16:30 Discharge instructions given to patient, significant other, Instructed on discharge instructions, follow up and referral plans. medication usage, Demonstrated understanding of instructions, follow-up care, medications, Prescriptions given X 2, 16:34 Patient left the ED. nj1 Signatures: Dispatcher [employer] EDMS Ancelmo Parrish MD MD cha Williams, Irene, RN RN Grace Kam rg4 Azael Cage RN RN as6 Patrizia Marshall RN RN nj1 Corrections: (The following items were deleted from the chart) 16:35 14:52 [facility] ED Fall Risk Assessment (Adult) History of falling in the last 3 months, nj1 including since admission nj1
--- NOTE | 2024-03-21 15:32 | EDPHYS ---
Physician Documentation [facility] Name: Rashmi Lehman Age: 88 yrs Sex: Female : 1935 Arrival Date: 03/21/2024 Time: 13:52 Bed 8 Private MD: Vijay Benitez C ED Physician Ancelmo Parrish HPI: 03/21 15:20 This 88 yrs old Female presents to ER via Ambulatory with complaints of Fall daniel Injury. 15:20 Details of fall: The patient fell from an upright position, while standing, while daniel walking. Onset: The symptoms/episode began/occurred just prior to arrival. Associated injuries: The patient sustained injury to the head, laceration, pain, swelling. Severity of symptoms: At their worst the symptoms were mild, in the emergency department the symptoms are unchanged. The patient has not experienced similar symptoms in the past. Historical: - Allergies: 13:58 PENICILLINS; as6 - PMHx: 13:58 Hypercholesterolemia; Hypertensive disorder; Hypothyroidism; as6 - PSHx: 13:58 Total abdominal hysterectomy; Tonsillectomy; eye; as6 - Immunization history:: Adult Immunizations up to date. - Infectious Disease History:: Denies. - Social history:: Smoking status: Patient denies any tobacco usage or history of. ROS: 15:21 Constitutional: Negative for fever, chills, and weight loss, Eyes: Negative for injury, daniel pain, redness, and discharge, ENT: Negative for injury, pain, and discharge, Neck: Negative for injury, pain, and swelling, Cardiovascular: Negative for chest pain, palpitations, and edema, Respiratory: Negative for shortness of breath, cough, wheezing, and pleuritic chest pain, Abdomen/GI: Negative for abdominal pain, nausea, vomiting, diarrhea, and constipation, Back: Negative for injury and pain, : Negative for injury, bleeding, discharge, and swelling, MS/Extremity: Negative for injury and deformity, Neuro: Negative for headache, weakness, numbness, tingling, and seizure, Psych: Negative for depression, anxiety, suicide ideation, homicidal ideation, and hallucinations, Allergy/Immunology: Negative for hives, rash, and allergies, Endocrine: Negative for neck swelling, polydipsia, polyuria, polyphagia, and marked weight changes, Hematologic/Lymphatic: Negative for swollen nodes, abnormal bleeding, and unusual bruising, 15:21 Skin: Positive for laceration(s), swelling, of the right eye, Exam: 15:21 Constitutional: This is a well developed, well nourished patient who is awake, alert, daniel and in no acute distress. Eyes: Pupils equal round and reactive to light, extra-ocular motions intact. Lids and lashes normal. Conjunctiva and sclera are non-icteric and not injected. Cornea within normal limits. Periorbital areas with no swelling, redness, or edema. ENT: Nares patent. No nasal discharge, no septal abnormalities noted. Tympanic membranes are normal and external auditory canals are clear. Oropharynx with no redness, swelling, or masses, exudates, or evidence of obstruction, uvula midline. Mucous membranes moist. Neck: Trachea midline, no thyromegaly or masses palpated, and no cervical lymphadenopathy. Supple, full range of motion without nuchal rigidity, or vertebral point tenderness. No Meningismus. Chest/axilla: Normal chest wall appearance and motion. Nontender with no deformity. No lesions are appreciated. Cardiovascular: Regular rate and rhythm with a normal S1 and S2. No gallops, murmurs, or rubs. Normal PMI, no JVD. No pulse deficits. Respiratory: Lungs have equal breath sounds bilaterally, clear to auscultation and percussion. No rales, rhonchi or wheezes noted. No increased work of breathing, no retractions or nasal flaring. Abdomen/GI: Soft, non-tender, with normal bowel sounds. No distension or tympany. No guarding or rebound. No evidence of tenderness throughout. Back: No spinal tenderness. No costovertebral tenderness. Full range of motion. Skin: Warm, dry with normal turgor. Normal color with no rashes, no lesions, and no evidence of cellulitis. MS/ Extremity: Pulses equal, no cyanosis. Neurovascular intact. Full, normal range of motion. Neuro: Awake and alert, GCS 15, oriented to person, place, time, and situation. Cranial nerves II-XII grossly intact. Motor strength 5/5 in all extremities. Sensory grossly intact. Cerebellar exam normal. Normal gait. Psych: Awake, alert, with orientation to person, place and time. Behavior, mood, and affect are within normal limits. 15:21 Head/face: Noted is contusion, that is deep, of the right eye, a laceration(s), that is superficial, 2.5 cm(s), Vital Signs: 13:55 BP 187 / 108; Pulse 100; Resp 16 S; Temp 97.4(TE); Pulse Ox 99% on R/A; Weight 47.63 as6 kg; Height 5 ft. 1 in. (R); Pain 5/10; 16:00 BP 183 / 88; Pulse 83; Resp 17; Pulse Ox 98% on R/A; nj1 13:55 Body Mass Index 19.84 (47.63 kg, 154.94 cm) as6 13:55 Pain Scale: Adult as6 [place] Coma Score: 15:23 Eye Response: spontaneous(4). Motor Response: obeys commands(6). Verbal Response: daniel oriented(5). Total: 15. Laceration: 15:24 Wound Repair of 2.5cm ( 1.0in ) subcutaneous laceration to face and right eye. Linear daniel shaped.. Distal neuro/vascular/tendon intact. Anesthesia: none with 0 mls of 1% lidocaine. Wound prep: Simple cleansing, Moderate cleansing by me. Skin closed with dermabond Adhesive skin closure using Dermabond. Dressed with non-adherent dressing. Patient tolerated well. MDM: 14:05 Patient medically screened. daniel 15:23 Differential diagnosis: closed head injury, contusion, fracture, laceration, multiple daniel trauma, sprain, strain. Data reviewed: vital signs, nurses notes, radiologic studies. Consideration of Admission/Observation Escalation of care including admission/observation considered. I considered the following discharge prescriptions or medication management in the emergency department Medications were administered in the Emergency Department. See MAR. Independent interpretation of the following test(s) in the Emergency Department CT Scan: My interpretation is ct head and c spine. Test considered but Not performed: Labs: no labs. Historians other than the Patient: Spouse/Significant Other: well informed. Care significantly affected by the following chronic conditions: Hypertension, hypothyroid, high chlesterol. 03/21 14:21 Order name: CT Head C Spine [facility] 03/21 14:21 Order name: Misc. Order: dermabond; Complete Time: 15:03 daniel 03/21 14:21 Order name: Misc. Order: clean wound; Complete Time: 16:12 daniel Administered Medications: 15:03 Drug: Cephalexin PO 500 mg PO once Route: PO; iw 16:12 Follow up: Response: No adverse reaction nj1 16:00 Drug: Acetaminophen PO 650 mg PO once Route: PO; nj1 Disposition Summary: 03/21/24 15:31 Discharge Ordered Notes: Location: Home daniel Problem: new daniel Symptoms: have improved daniel Condition: Stable daniel Diagnosis - Fall on same level, unspecified daniel - Laceration without foreign body of other part of head - right brow daniel - Fracture of orbital floor daniel - Fracture of malar, maxillary and zygoma bones daniel Followup: daniel - With: Private Physician - When: 1 week - Reason: Recheck today's complaints, Continuance of care, Re-evaluation by your physician Followup: daniel - With: Gloria Sootmayor MD - When: 2 - 3 days - Reason: Recheck today's complaints, Re-evaluation by your physician Discharge Instructions: - Discharge Summary Sheet daniel - Tissue Adhesive Wound Care daniel - Orbital Fracture daniel - Head Injury, Adult daniel - Fall Prevention in the Home, Adult daniel - Laceration Care, Adult daniel - Facial Laceration daniel - Zygoma Fracture daniel - Facial Laceration, [id number] daniel - Head Injury, Adult, [id number] daniel - Tissue Adhesive Wound Care, [id number] [facility] Forms: - Medication Reconciliation Form [facility] - Antibiotic Education [facility] - Prescription Opioid Use [facility] - Patient Portal Instructions [facility] - Leadership Thank You Letter [facility] Prescriptions: - Cephalexin 500 mg Oral capsule - take 1 capsule ORAL route every 8 hours for 7 days; 21 capsule; Refills: 0, [facility] Product Selection Permitted - Tylenol 325 mg Oral tablet - take 2 tablets ORAL route every 6 hours as needed; 60 tablet; Refills: 0, [facility] Product Selection Permitted Signatures: Dispatcher [employer] Ancelmo Monae MD MD cha Williams, Irene RN Azael Sotelo RN RN as6 Patrizia Marshall RN RN nj1
[2024-03-21] MEDS ORDERED: ACETAMINOPHEN 325 MG TABLET ONE (15:59)
--- NOTE | 2024-03-21 16:02 | RAD REPORT ---
EXAM DESCRIPTION: CT - [id number] - 03/21/2024 2:40 pm CLINICAL HISTORY: TRAUMA COMPARISON: Head C Spine Cap Wo Con dated 12/05/2023 TECHNIQUE: Axial thin cut noncontrast CT images of the head were obtained. Axial thin cut noncontrast CT images of the cervical spine were obtained. Multiplanar reformatted images were generated and reviewed. All CT scans are performed using dose optimization technique as appropriate and may include automated exposure control or mA/KV adjustment according to patient size. FINDINGS: CT HEAD WITHOUT CONTRAST: No acute hemorrhage, hydrocephalus or extra-axial collection is identified. Mild diffuse parenchymal volume loss, with stable ventricular caliber. Focus of near CSF density in the right subinsular regio n may represent sequelae of a remote lacunar infarct versus a prominent perivascular space. No areas of brain edema or midline shift. The mastoid air cells are well aerated.The calvarium is intact. Right periorbital soft tissue swelling. Mildly displaced fractures of the right orbital floor, as wel l as diastases along the right frontozygomatic suture. Mildly displaced fracture of the right zygomat ic arch. Mildly displaced fractures of the medial and lateral right maxillary sinus bonner with layeri ng hemorrhage within the sinus cavity. To the extent evaluated, the right inferior rectus is normal i n caliber and morphology without evidence of herniated orbital contents. CT CERVICAL SPINE WITHOUT CONTRAST: No fracture or subluxation. Multilevel degenerative changes with moderate degrees of disc height loss at C3-4 and C4-5. No prevertebral soft tissues swelling is identified. IMPRESSION: No acute traumatic intracranial or cervical spine findings. Mildly displaced right facial bone fractures including the right orbital floor, lateral orbital jeni n, zygomatic arch, and bonner of the right maxillary sinus. The findings were communicated to Ancelmo Parrish on 03/21/2024 at 15:54 hours.
[2024-03-21 17:18] VITALS: BP 183/88; TEMP 97.4; O2SAT 98
== END 2024-03-21 16:34 | disposition home or self-care (01) ==
LOC: ER 13:52
PROC: 0HQ1XZZ Repair Face Skin, External Approach (ICD-10-PCS; principal; 2024-03-21)
DX: S02.31XA Fracture of orbital floor, right side, initial encounter for closed fracture (principal); S02.40AA Malar fracture, right side, initial encounter for closed fracture; S02.40CA Maxillary fracture, right side, initial encounter for closed fracture; S02.40EA Zygomatic fracture, right side, initial encounter for closed fracture; S01.81XA Laceration without foreign body of other part of head, initial encounter; W18.30XA Fall on same level, unspecified, initial encounter
CPT/HCPCS: 70450; 72125; 99283

== ENCOUNTER 2025-01-14 11:00 | Inpatient (IN) | payer MEDICARE, OTHER ==
--- NOTE | 2025-01-14 12:04 | RAD REPORT ---
EXAM: CT brain without contrast HISTORY: Pain;Trauma COMPARISON: None TECHNIQUE: Multiple contiguous axial images were obtained and a CT of the brain without contrast. Sag ittal and coronal reformats were performed. One or more of the following dose reduction techniques were used: Automated exposure control, adjust ment of the mA and/or kV according to patient size, and/or iterative reconstruction. FINDINGS: No evidence of hydrocephalus, intracranial hemorrhage, or extra-axial fluid collection. Mild brain atrophy with mild periventricular and deep white matter chronic microvascular ischemic ch anges present. No evidence of midline shift or areas of brain edema. The calvarium is intact. The visualized paranasal sinuses and mastoid air cells are essentially clear . Left vertebral atherosclerosis. Small indeterminate scalp lesion right frontal region measuring 5 mm. IMPRESSION: No evidence of acute intracranial abnormality. EXAM: CT of the cervical spine without contrast HISTORY: Neck pain, injury Pain;Trauma TECHNIQUE: Multiple contiguous axial images were obtained in a CT of the cervical spine without contr ast. Sagittal and coronal reformats were performed. FINDINGS: The vertebral bodies demonstrate normal height and alignment. No evidence of acute fracture or subluxation.. Moderate upper cervical degenerative spondylosis. No prevertebral soft tissue swelling is seen. The posterior facets are well aligned. Normal alignment of the skull base with the cervical spine is seen. The lung apices are unremarkable. IMPRESSION: No evidence of acute osseous abnormality of the cervical spine.
--- NOTE | 2025-01-14 12:09 | RAD REPORT ---
EXAM: CT CHEST, ABDOMEN AND PELVIS WITHOUT CONTRAST CLINICAL INDICATION: PAIN/TRAUMA TECHNIQUE: CT chest, abdomen and pelvis was performed without contrast, as per department protocol. A xial, sagittal and coronal reconstructions were obtained. One or more of the following dose reduction techniques were used: Automated exposure control, adjustment of the mA and/or kV according to patient size, and/or iterative reconstruction. Unless otherwise specified, incidental findings do not require dedicated imaging follow-up. Examination is limited by the lack of intravenous contrast material. COMPARISON: No prior exam. FINDINGS: LUNGS: No evidence of airspace or interstitial process. No nodules. Mild COPD. PLEURA: No pleural effusion. No pneumothorax. MEDIASTINUM AND LYMPH NODES: No mediastinal mass or fluid collection. Normal size mediastinal, hilar, and axillary lymph nodes. OSSEOUS STRUCTURES AND CHEST WALL: Intact. LIVER: Normal in size and contour. No focal lesion or biliary dilatation. Grossly unremarkable gallbl adder. PANCREAS: No mass, ductal dilation, or janelle-pancreatic fluid. SPLEEN: Normal size. No focal lesion. ADRENALS: Normal; no mass. KIDNEYS: Normal size and contour. No hydronephrosis. URINARY BLADDER: Normal contour. GASTROINTESTINAL TRACT: No bowel obstruction, free air, significant free fluid or abscess. There is moderate diverticulosis coli of the sigmoid colon without diverticulitis. APPENDIX: Normal appendix. LYMPH NODES: No lymphadenopathy. MUSCULOSKELETAL: Mild lower lumbar spondylosis. IMPRESSION: No acute or significant abnormalities seen in the chest, abdomen or pelvis. Prominent sigmoid diverticulosis coli without diverticulitis. Moderate stool retention.
--- NOTE | 2025-01-14 12:39 | RAD REPORT ---
Procedure: Chest Single View HISTORY: Cough COMPARISON: January 14, 2025 FINDINGS: The lungs appear clear of acute infiltrate. Lungs are mildly hyperaerated. No significant pleural effusion noted. The heart is mildly enlarged. . IMPRESSION: No acute abnormality is displayed.
[2025-01-14 13:23] LABS: Absolute Eosinophils 0.1 K/uL (0-0.5); Absolute Lymphocytes (CBC) 0.9 K/uL (0.7-4.9); Absolute Monocytes 0.7 K/uL (0.1-1.3); Absolute Neutrophil 5.5 K/uL (1.8-8.0); Basophils % 0.7 % (0-1.3); Hematocrit 38.7 % (36.0-45.0); Hemoglobin 12.8 g/dL (12.0-15.0); Lymphocytes % 13.1 % (15.3-44.8); MCH 29.2 pg (27.0-35.0); MCHC 33.1 g/dL (32.0-36.0); MCV 88.3 fL (80-100); MPV 7.3 fL (7.6-11.3); Monocytes % 9.8 % (3.3-12.3); Neutrophils % 75.4 % (41.7-73.7); Platelets 337 thou/uL (152-406); RBC Red Blood Cell Count 4.38 M/uL (3.86-4.86); Red Cell Distribution Width 14.1 % (12.1-15.2)
[2025-01-14] MEDS ORDERED: NA CHLORIDE 0.9% 1,000 ML ONE ×2 (13:29→21:25)
[2025-01-14 13:45] LABS: Albumin/Globulin Ratio 1.3 (1.1-1.8); Anion Gap 8.9 mEq/L (5.0-15.0); Bilirubin Direct 0.2 mg/dL (0-0.2); Bilirubin Indirect, Calculated 0.4 mg/dL (0.2-0.8); Bilirubin Total 0.6 mg/dL (0.2-1.0); Globulin 3.2 g/dL (2.3-3.5); Magnesium 2.4 mg/dL (1.6-2.4); Potassium 3.9 mEq/L (3.5-5.1); Protein, Total 7.2 g/dL (6.4-8.2)
[2025-01-14 13:50] LABS: PT Prothrombin Time 11.9 SECONDS (10-13.0); Protime INR 1.05
[2025-01-14 14:15] LABS: Specific Gravity 1.016 (1.005-1.030); Sqamous Epithelial <5 /HPF (None Seen); Transitional Epithelial <5 /HPF (None Seen); Urine Bacteria None Seen /HPF (<20); Urine Bilirubin NEGATIVE (Negative); Urine Blood Negative (Negative); Urine Clarity Clear (Clear); Urine Color Light-Yellow (Yellow); Urine Culture Reflex Order NOT NEEDED; Urine Glucose NEGATIVE (Negative); Urine Ketones NEGATIVE (Negative); Urine Microscopic Reflex YN ORDER UMIC; Urine Nitrite NEGATIVE (Negative); Urine Protein TRACE (Negative); Urine Urobilinogen Normal (Normal); Urine WBC <5 /HPF (<5)
--- NOTE | 2025-01-14 16:57 | ER ---
Nurse's Notes [facility] Name: Rashmi Lehman Age: 89 yrs Sex: Female : 1935 Arrival Date: 01/14/2025 Time: 11:00 Bed 25 Private MD: Diagnosis: Syncope Near;Repeated falls;Weakness;Non ST elevation [place] Presentation: 01/14 11:45 Chief complaint: Patient states: has bene coming here since October for falls , I can me1 tell when I'm gonna pass out, today I fell and hit the concrete , today she fell at 0800. 11:45 Acuity: FIONA 3 iw 11:46 Coronavirus screen: At this time, the client does not indicate any symptoms associated iw with coronavirus-19. Ebola Screen: No symptoms or risks identified at this time. Initial Sepsis Screen: Does the patient meet any 2 criteria? No. Patient's initial sepsis screen is negative. Does the patient have a suspected source of infection? No. Patient's initial sepsis screen is negative. Risk Assessment: Do you want to hurt yourself or someone else? Patient reports no desire to harm self or others. Onset of symptoms was January 14, 2025. 11:46 Method Of Arrival: Wheelchair iw Historical: - Allergies: 11:47 PENICILLINS; iw - PMHx: 11:47 Hypercholesterolemia; Hypertensive disorder; Hypothyroidism; iw - PSHx: 11:47 eye; Tonsillectomy; Total abdominal hysterectomy; iw - Immunization history:: Adult Immunizations up to date. - Infectious Disease History:: Denies. - Social history:: Smoking status: Patient denies any tobacco usage or history of. Screenin:10 [facility] ED Fall Risk Assessment (Adult) History of falling in the last 3 months, me1 including since admission No falls in past 3 months (0 pts) Confusion or Disorientation No (0 pts) Intoxicated or Sedated No (0 pts) Impaired Gait No (0 pts) Mobility Assist Device Used No (0 pt) Altered Elimination No (0 pt) Score/Fall Risk Level 0 - 2 = Low Risk Maintained a safe environment, Provided non-skid footwear, Hourly rounding (assess needs \T\ fall precautionary measures) done. Abuse screen: Denies threats or abuse. Nutritional screening: No deficits noted. Tuberculosis screening: No symptoms or risk factors identified. Assessment: 12:10 General: Appears in no apparent distress. comfortable, well groomed, well developed, me1 well nourished, Behavior is calm, cooperative, appropriate for age, Reports has been coming here since October for falls , I can tell when I'm gonna pass out, today I fell and hit the concrete , today she fell at 0800. Pain: Denies pain. Neuro: Level of Consciousness is awake, alert, obeys commands, Oriented to person, place, situation. Cardiovascular: Patient's skin is warm and dry. Respiratory: Airway is patent Respiratory effort is even, unlabored, Respiratory pattern is regular, symmetrical. GI: No signs and/or symptoms were reported involving the gastrointestinal system. : Reports urinary frequency. EENT: No signs and/or symptoms were reported regarding the EENT system. Derm: Skin is intact, is healthy with good turgor, Skin is pink, warm \T\ dry. Musculoskeletal: Nonambulatory at baseline. 12:34 Reassessment: Patient and/or family updated on plan of care and expected duration. Pain ll1 level reassessed. 01/15 07:15 Reassessment: SEE [employer] FOR DOCUMENTATION. db Vital Signs: 01/14 11:46 BP 172 / 82; Pulse 71; Resp 19; Temp 98.1; Pulse Ox 99% on R/A; Weight 49.9 kg; Height iw 5 ft. 2 in. ; 13:15 BP 162 / 95; Pulse 77; Resp 19; Pulse Ox 99% ; me1 14:00 BP 173 / 99; Pulse 91; Resp 20; Pulse Ox 99% ; me1 15:00 BP 162 / 91; Pulse 89; Resp 18; Pulse Ox 97% ; me1 16:00 BP 139 / 87; Pulse 98; Resp 22; Pulse Ox 96% ; me1 17:00 BP 163 / 97; Pulse 89; Resp 18; Pulse Ox 96% ; me1 18:00 BP 157 / 93; Pulse 95; Resp 20; Pulse Ox 97% ; me1 19:00 BP 172 / 83; Pulse 83; Resp 18; Pulse Ox 98% ; me1 11:46 Body Mass Index 20.12 (49.90 kg, 157.48 cm) iw NIH Stroke Scale Scores: 16:52 NIHSS Score: 0 daniel ED Course: 11:02 Patient arrived in ED. mr 11:06 Ancelmo Parrish MD is Attending Physician. daniel 11:24 Head C Spine Mpr Wo Con In Process Unspecified. EDMS 11:25 Chest Abd Pelvis Wo Con In Process Unspecified. EDMS 11:46 Triage completed. iw 11:48 Arm band placed on. iw 12:10 Patient has correct armband on for positive identification. Bed in low position. Call me1 light in reach. Side rails up X2. Provided Education on: POC. Verbalized understanding.. Client placed on continuous cardiac and pulse oximetry monitoring. NIBP monitoring applied. double ending machine operator on. Pulse ox on. NIBP on. Warm blanket given. 12:10 No provider procedures requiring assistance completed. me1 12:19 XRAY Chest (1 view) In Process Unspecified. EDMS 12:33 Patient placed in an exam room, on a stretcher. ll1 12:45 Fallon Allen, RN is Primary Nurse. me1 13:15 Lipase Sent. me1 13:15 Basic Metabolic Panel Sent. me1 13:15 CBC with Diff Sent. me1 13:15 LFT's Sent. me1 13:15 Magnesium Sent. me1 13:15 NT PRO-BNP Sent. me1 13:15 PT-INR Sent. me1 13:15 Troponin HS Sent. me1 13:16 Initial lab(s) drawn, by ct, sent to lab. Inserted saline lock: 22 gauge in left me1 antecubital area, using aseptic technique. 13:48 Notified ED physician of a critical lab result(s). troponin 302. ll1 13:57 Urinalysis w/ reflexes Sent. me1 13:57 Urine collected: clean catch specimen, cloudy. me1 16:55 Vijay Benitez MD is Hospitalizing Provider. daniel 01/15 13:09 Patient admitted, IV remains in place. db Administered Medications: 01/14 13:30 Drug: NS 0.9% IV 1000 ml IV at 1 bolus Per protocol; to be given as a bolus over 60 me1 minutes Route: IV; Rate: 1 bolus; Site: left antecubital; 15:44 Follow up: Response: No adverse reaction; IV Status: Completed infusion; IV Intake: me1 1000ml 17:35 Drug: Aspirin PO Chewable Tablet 162 mg PO once Route: PO; me1 17:35 Follow up: Response: No adverse reaction me1 17:35 Drug: Famotidine IVP 20 mg IVP once; dilute with 10 mL 0.9% NaCl; give over 2 minutes me1 Route: IVP; Site: left antecubital; 17:35 Follow up: Response: No adverse reaction me1 17:35 Drug: Enoxaparin Sub-Q 50 mg Sub-Q once Route: Sub-Q; Site: abdomen; me1 17:36 Follow up: Response: No adverse reaction me1 Medication: 12:10 VIS not applicable for this client. me1 Intake: 15:44 IV: 1000ml; Total: 1000ml. me1 Outcome: 16:57 Decision to Hospitalize by Provider. [facility] 01/15 13:09 Admitted to Med/surg accompanied by tech, via stretcher, room 431, with chart, Report db called to TUBED UP 13:09 Condition: stable db 13:09 Instructed on the need for admit, 13:10 Patient left the ED. db NIH Stroke Scale - NIH Stroke Score Date: 01/14/2025 Time: 16:52 Total Score = 0 10. Dysarthria (speech clarity - read or repeat words) - 0(Normal) 11. Extinction and Inattention (visual/tactile/auditory/spatial/personal) - 0(No abnormality) 1a. Level of Consciousness (LOC) - 0(Alert) 1b. Level of Consciousness (LOC) (Month \T\ Age) - 0(Both) 1c. LOC Commands (Open \T\ Closes Eyes/Shop Service Technician) - 0(Both) 2. Best Gaze (Lateral Gaze Paresis) - 0(Normal) 3. Visual Field Loss - 0(No visual loss) 4. Facial Palsy - 0(Normal) 5a. Left Arm: Motor (10-second hold) - 0(No drift) 5b. Right Arm: Motor (10-second hold) - 0(No drift) 6a. Left Leg: Motor (5-second hold - always test supine) - 0(No drift) 6b. Right Leg: Motor (5-second hold - always test supine) - 0(No drift) 7. Limb Ataxia (finger/nose \T\ heel/quiros - test with eyes open) - 0(Absent) 8. Sensory Loss (pinprick arms/legs/face) - 0(Normal) 9. Best Language: Aphasia (description/naming/reading) - 0(No aphasia) Initials: daniel Signatures: Dispatcher [employer] Ancelmo Monae MD MD cha Rivera, Dia, Reg Reg mr Catherine Ahn, RN RN Karely Lopez RN RN 1 Gracie Hunter, RN RN db Fallon Allen, KORINA RN me1 Corrections: (The following items were deleted from the chart) 01/14 11:47 11:45 Chief complaint: Patient states: has bene coming here since October for iw falls , I can tell when I'm gonna pass out, today I fell and hit the concrete iw 11:48 11:46 BP 172 / 82; Pulse 71bpm; Resp 19bpm; Pulse Ox 99% RA; Temp 98.1F; iw iw 15:39 11:45 Chief complaint: Patient states: has bene coming here since October for me1 falls , I can tell when I'm gonna pass out, today I fell and hit the concrete , today she fell at 0800 iw 19:48 18:00 BP 126 / 75; Pulse 101bpm; Resp 18bpm; Pulse Ox 93% 3 lpm; me1 me1 01/15 13:10 13:09 Admitted to Med/surg db db
--- NOTE | 2025-01-14 16:58 | EDPHYS ---
Physician Documentation [facility] Name: Rashmi Lehman Age: 89 yrs Sex: Female : 1935 Arrival Date: 01/14/2025 Time: 11:00 Bed 25 Private MD: ED Physician Ancelmo Parrish HPI: 01/14 16:51 This 89 yrs old Female presents to ER via Wheelchair with complaints of Fall daniel Injury, Passed Out Prior To Arrival. 16:51 Details of fall: The patient fell from an upright position, while walking. Onset: The daniel symptoms/episode began/occurred 3 day(s) ago. Associated injuries: The patient sustained neck injury, upper back injury, injury to the low back. Severity of symptoms: At their worst the symptoms were mild, in the emergency department the symptoms have improved. The patient has not experienced similar symptoms in the past. Historical: - Allergies: 11:47 PENICILLINS; iw - PMHx: 11:47 Hypercholesterolemia; Hypertensive disorder; Hypothyroidism; iw - PSHx: 11:47 eye; Tonsillectomy; Total abdominal hysterectomy; iw - Immunization history:: Adult Immunizations up to date. - Infectious Disease History:: Denies. - Social history:: Smoking status: Patient denies any tobacco usage or history of. ROS: 16:52 Constitutional: Negative for fever, chills, and weight loss, Eyes: Negative for injury, daniel pain, redness, and discharge, ENT: Negative for injury, pain, and discharge, Neck: Negative for injury, pain, and swelling, Cardiovascular: Negative for chest pain, palpitations, and edema, Respiratory: Negative for shortness of breath, cough, wheezing, and pleuritic chest pain, Abdomen/GI: Negative for abdominal pain, nausea, vomiting, diarrhea, and constipation, Back: Negative for injury and pain, : Negative for injury, bleeding, discharge, and swelling, MS/Extremity: Negative for injury and deformity, Skin: Negative for injury, rash, and discoloration, Psych: Negative for depression, anxiety, suicide ideation, homicidal ideation, and hallucinations, Allergy/Immunology: Negative for hives, rash, and allergies, Endocrine: Negative for neck swelling, polydipsia, polyuria, polyphagia, and marked weight changes, Hematologic/Lymphatic: Negative for swollen nodes, abnormal bleeding, and unusual bruising, 16:52 Neuro: Positive for dizziness, weakness, Exam: 16:52 Constitutional: This is a well developed, well nourished patient who is awake, alert, daniel and in no acute distress. Head/Face: Normocephalic, atraumatic. Eyes: Pupils equal round and reactive to light, extra-ocular motions intact. Lids and lashes normal. Conjunctiva and sclera are non-icteric and not injected. Cornea within normal limits. Periorbital areas with no swelling, redness, or edema. ENT: Nares patent. No nasal discharge, no septal abnormalities noted. Tympanic membranes are normal and external auditory canals are clear. Oropharynx with no redness, swelling, or masses, exudates, or evidence of obstruction, uvula midline. Mucous membranes moist. Neck: Trachea midline, no thyromegaly or masses palpated, and no cervical lymphadenopathy. Supple, full range of motion without nuchal rigidity, or vertebral point tenderness. No Meningismus. Chest/axilla: Normal chest wall appearance and motion. Nontender with no deformity. No lesions are appreciated. Cardiovascular: Regular rate and rhythm with a normal S1 and S2. No gallops, murmurs, or rubs. Normal PMI, no JVD. No pulse deficits. Respiratory: Lungs have equal breath sounds bilaterally, clear to auscultation and percussion. No rales, rhonchi or wheezes noted. No increased work of breathing, no retractions or nasal flaring. Abdomen/GI: Soft, non-tender, with normal bowel sounds. No distension or tympany. No guarding or rebound. No evidence of tenderness throughout. Back: No spinal tenderness. No costovertebral tenderness. Full range of motion. Skin: Warm, dry with normal turgor. Normal color with no rashes, no lesions, and no evidence of cellulitis. MS/ Extremity: Pulses equal, no cyanosis. Neurovascular intact. Full, normal range of motion., bilateral aka Neuro: Awake and alert, GCS 15, oriented to person, place, time, and situation. Cranial nerves II-XII grossly intact. Motor strength 5/5 in all extremities. Sensory grossly intact. Cerebellar exam normal. Normal gait. Psych: Awake, alert, with orientation to person, place and time. Behavior, mood, and affect are within normal limits. 16:52 ECG was reviewed by the Attending Physician. 16:52 Musculoskeletal/extremity: DVT Exam: No signs of deep vein thrombosis. no pain, no swelling, no tenderness, negative Homans' sign noted on exam, no appreciated bluish discoloration, no erythema, no increased warmth, Vital Signs: 11:46 BP 172 / 82; Pulse 71; Resp 19; Temp 98.1; Pulse Ox 99% on R/A; Weight 49.9 kg; Height iw 5 ft. 2 in. ; 13:15 BP 162 / 95; Pulse 77; Resp 19; Pulse Ox 99% ; me1 14:00 BP 173 / 99; Pulse 91; Resp 20; Pulse Ox 99% ; me1 15:00 BP 162 / 91; Pulse 89; Resp 18; Pulse Ox 97% ; me1 16:00 BP 139 / 87; Pulse 98; Resp 22; Pulse Ox 96% ; me1 17:00 BP 163 / 97; Pulse 89; Resp 18; Pulse Ox 96% ; me1 18:00 BP 157 / 93; Pulse 95; Resp 20; Pulse Ox 97% ; me1 19:00 BP 172 / 83; Pulse 83; Resp 18; Pulse Ox 98% ; me1 11:46 Body Mass Index 20.12 (49.90 kg, 157.48 cm) iw NIH Stroke Scale Scores: 16:52 NIHSS Score: 0 daniel MDM: 11:06 Medical Screening Exam initiated daniel 16:54 Differential Diagnosis altered mental status, sepsis, flu. Differential diagnosis: daniel closed head injury, contusion, fracture, laceration, multiple trauma, sprain, strain. Data reviewed: vital signs, nurses notes, lab test result(s), EKG, radiologic studies, CT scan. Consideration of Admission/Observation Escalation of care including admission/observation considered. I considered the following discharge prescriptions or medication management in the emergency department Medications were administered in the Emergency Department. See MAR. Independent interpretation of the following test(s) in the Emergency Department EKG: See my EKG interpretation above. Test considered but Not performed: Ultrasound no 2 d echo. Care significantly affected by the following chronic conditions: Hypertension, high chlesterol, hypothyroid. 01/14 11:08 Order name: Basic Metabolic Panel; Complete Time: 16:34 [facility] 01/14 11:08 Order name: CBC with Diff; Complete Time: 16:34 [facility] 01/14 11:08 Order name: LFT's; Complete Time: 16:34 [facility] 01/14 11:08 Order name: Magnesium; Complete Time: 16:34 [facility] 01/14 11:08 Order name: NT PRO-BNP; Complete Time: 16:34 [facility] 01/14 11:08 Order name: PT-INR; Complete Time: 16:34 [facility] 01/14 11:08 Order name: Troponin HS; Complete Time: 16:34 [facility] 01/14 11:08 Order name: Lipase; Complete Time: 16:34 [facility] 01/14 11:08 Order name: Urinalysis w/ reflexes; Complete Time: 16:34 [facility] 01/15 08:03 Order name: Basic Metabolic Panel [facility] 01/15 08:03 Order name: Troponin High Sensitivity [facility] 01/15 08:03 Order name: Lipid Profile [facility] 01/15 08:03 Order name: Thyroid Stimulating Hormone [facility] 01/15 08:11 Order name: CBC with Automated Diff [facility] 01/15 08:17 Order name: T4 Free [facility] 01/14 11:08 Order name: XRAY Chest (1 view); Complete Time: 16:34 [facility] 01/14 11:15 Order name: Head C Spine Mpr Wo Con; Complete Time: 16:34 [facility] 01/14 11:16 Order name: Chest Abd Pelvis Wo Con; Complete Time: 16:34 [facility] 01/15 08:14 Order name: US [facility] 01/14 17:03 Order name: CONS Physician Consult [facility] 01/14 11:08 Order name: Cardiac monitoring; Complete Time: 13:31 [facility] 01/14 11:08 Order name: EKG - Nurse/Tech; Complete Time: 13:31 [facility] 01/14 11:08 Order name: IV Saline Lock; Complete Time: 13:15 [facility] 01/14 11:08 Order name: Labs collected and sent; Complete Time: 13:15 [facility] 01/14 11:08 Order name: O2 Per Protocol; Complete Time: 13:15 [facility] 01/14 11:08 Order name: O2 Sat Monitoring; Complete Time: 13:15 [facility] EC:52 Rate is 72 beats/min. Rhythm is regular. QRS Constable is Normal. QRS interval is normal. QT daniel interval is normal. No Q waves. T waves are Normal. No ST changes noted. Clinical impression: NSR w/ Non-specific ST/T Changes and No evidence of ischemia. Interpreted by me. Reviewed by me. Administered Medications: 13:30 Drug: NS 0.9% IV 1000 ml IV at 1 bolus Per protocol; to be given as a bolus over 60 me1 minutes Route: IV; Rate: 1 bolus; Site: left antecubital; 15:44 Follow up: Response: No adverse reaction; IV Status: Completed infusion; IV Intake: me1 1000ml 17:35 Drug: Aspirin PO Chewable Tablet 162 mg PO once Route: PO; me1 17:35 Follow up: Response: No adverse reaction me1 17:35 Drug: Famotidine IVP 20 mg IVP once; dilute with 10 mL 0.9% NaCl; give over 2 minutes me1 Route: IVP; Site: left antecubital; 17:35 Follow up: Response: No adverse reaction me1 17:35 Drug: Enoxaparin Sub-Q 50 mg Sub-Q once Route: Sub-Q; Site: abdomen; me1 17:36 Follow up: Response: No adverse reaction me1 Disposition Summary: 01/14/25 16:57 Hospitalization Ordered Notes: Hospitalization Status: Inpatient Admission daniel Provider: Vijay Benitez cha Condition: Fair daniel Problem: new daniel Symptoms: have improved daniel Bed/Room Type: Standard daniel Location: Telemetry/MedSurg (Inpatient)(01/15/25 12:08) [facility] Room Assignment: [facility](01/15/25 12:08) [facility] Diagnosis - Syncope Near daniel - Repeated falls daniel - Weakness daniel - Non ST elevation [place] daniel Forms: - Medication Reconciliation Form daniel - SBAR form daniel - Leadership Thank You Letter daniel NIH Stroke Scale - NIH Stroke Score Date: 01/14/2025 Time: 16:52 Total Score = 0 10. Dysarthria (speech clarity - read or repeat words) - 0(Normal) 11. Extinction and Inattention (visual/tactile/auditory/spatial/personal) - 0(No abnormality) 1a. Level of Consciousness (LOC) - 0(Alert) 1b. Level of Consciousness (LOC) (Month \T\ Age) - 0(Both) 1c. LOC Commands (Open \T\ Closes Eyes/Knockdown Man) - 0(Both) 2. Best Gaze (Lateral Gaze Paresis) - 0(Normal) 3. Visual Field Loss - 0(No visual loss) 4. Facial Palsy - 0(Normal) 5a. Left Arm: Motor (10-second hold) - 0(No drift) 5b. Right Arm: Motor (10-second hold) - 0(No drift) 6a. Left Leg: Motor (5-second hold - always test supine) - 0(No drift) 6b. Right Leg: Motor (5-second hold - always test supine) - 0(No drift) 7. Limb Ataxia (finger/nose \T\ heel/quiros - test with eyes open) - 0(Absent) 8. Sensory Loss (pinprick arms/legs/face) - 0(Normal) 9. Best Language: Aphasia (description/naming/reading) - 0(No aphasia) Initials: [facility] Signatures: Dispatcher [employer] EDMS Karin Spence Corey, MD MD cha Williams, Irene, RN RN iw [place], Breana [facility] Fallon Allen RN RN me1 Corrections: (The following items were deleted from the chart) 11:08 11:08 BASIC METABOLIC PANEL+C.LAB.BRZ ordered. EDMS EDMS 11:08 11:08 CBC+H.LAB.BRZ ordered. EDMS EDMS 11:08 11:08 HEPATIC FUNCTION+C.LAB.BRZ ordered. EDMS EDMS 11:08 11:08 MAGNESIUM+C.LAB.BRZ ordered. EDMS EDMS 11:08 11:08 PROBNP+C.LAB.BRZ ordered. EDMS EDMS 11:08 11:08 PROTIME (+INR)+COAG.LAB.BRZ ordered. EDMS EDMS 11:08 11:08 Troponin High Sensitivity+C.LAB.BRZ ordered. EDMS EDMS 11:08 11:08 LIPASE+C.LAB.BRZ ordered. EDMS EDMS 11:08 11:08 Urinalysis+U.LAB.BRZ ordered. EDMS EDMS 11:08 11:08 Chest Single View+RAD.RAD.BRZ ordered. EDMS EDMS 11:08 11:08 Head C Spine Cap Wo Con+CT.RAD.BRZ ordered. EDMS EDMS 18:19 16:57 Telemetry/MedSurg (Inpatient) [facility] bd 18:19 16:57 daniel 01/15 12:08 01/14 18:19 [facility] ER HOLD bd bc6 01/15 12:08 03/26 18:19 ERHOLD- bd bc6
[2025-01-14] MEDS ORDERED: FAMOTIDINE 20 MG/2 ML VIAL IV ONE (17:29)
[2025-01-14] MEDS ORDERED: ASPIRIN 81 MG CHEWABLE TABLET ONE (17:29)
[2025-01-14] MEDS ORDERED: ENOXAPARIN 60 MG/0.6 ML SQ ONE (17:29)
[2025-01-14] MEDS: NA CHLORIDE 0.9% 1,000 ML IV SCH (19:51)
[2025-01-14] MEDS ORDERED: ACETAMINOPHEN 500 MG TAB PO PRN (19:51)
[2025-01-14] MEDS ORDERED: ONDANSETRON 4 MG/2 ML VIAL IV PRN (19:51)
[2025-01-14 20:09] VITALS: BMI 20.1
[2025-01-14] MEDS: METOPROLOL TAR 50 MG TAB PO SCH (21:00)
[2025-01-14] MEDS ORDERED: FAMOTIDINE 20 MG/2 ML VIAL IV SCH (21:00)
[2025-01-14] MEDS: QUETIAPINE 25 MG TAB PO SCH (21:00)
[2025-01-14] MEDS: ATORVASTATIN 40 MG TAB PO SCH (21:00)
[2025-01-14] MEDS ORDERED: ATORVASTATIN 40 MG TAB ONE (21:24)
[2025-01-14] MEDS ORDERED: METOPROLOL TAR 50 MG TAB ONE (21:24)
--- NOTE | 2025-01-14 23:04 | HP ---
Date of Admission: 01/14/2025 Chief Complaint: Fall. History Of Present Illness: This is an 89-year-old pleasant female patient who has had multiple falls lately, about 4-5 falls and last fall was today and she came into emergency room. The patient denies any obvious injuries except bruising on her arms and she says that while she is standing for no good reason, all of a sudden she starts feeling like she is going to faint and fall down on the floor. She has bruising on her both upper extremities from the prior falls. No open wound. She denies any chest pain, shortness of breath, nausea, vomiting, diarrhea, or any bleeding. She came into emergency room today and after she was evaluated, I was contacted requesting admission to hospital as her troponin level was high. The patient once again denies any cardiac symptoms. Allergies: PENICILLIN, CAUSING RASH AND GABAPENTIN, CAUSING NAUSEA. Medications: Amlodipine 5 mg daily, aspirin 81 mg daily, levothyroxine 112 mcg takes 1 tablet by mouth daily from Sunday to Sunday and half tablet on Sunday, losartan 50 mg daily, metoprolol 50 mg 2 times a day, Seroquel 25 mg daily at bedtime, Vitamin B12, 1 mg daily, atorvastatin 20 mg daily at bedtime, and oxybutynin 5 mg daily. Review of Systems: Cardiovascular: As mentioned above. RADIATION CONTROL HEALTH PHYSICIST: As mentioned above. All other systems reviewed and negative. Past Medical History: Significant for chronic kidney disease, stage 3A; hypertension; leg edema; hypothyroidism; hyperlipidemia; peripheral neuropathy; Vitamin B12 deficiency; urge incontinence; coronary artery disease; senile dementia; osteoarthritis at multiple sites. Past Surgical History: Cataract surgery, LASIK surgery, tonsillectomy, hysterectomy. Family History: Father had pancreatic cancer. Mother had Alzheimer disease, myocardial infarction, diabetes, hypertension. Sister had breast cancer and diabetes. Social History: Prior history of smoking, not at present time. Use of alcohol, negative. Physical Examination: Vital Signs: Upon arrival to the emergency room, blood pressure 172/82, pulse 71, respiratory rate 19, temperature 98.1, oxygen saturation 99%. Height 49.9 kg, height 5 feet 2 inches. General: Awake, alert, oriented, not in distress. HEENT: Head atraumatic, normocephalic. Conjunctivae nonerythematous. Sclerae white. Mouth, no thrush or edema noted. Ears/Nose, no mass, lesion, discharge noted. Neck: Supple. No JVD, lymph nodes, bruit, thyromegaly noted. Lungs: Bilateral good equal air entry. Clear to auscultation. No rhonchi. No rales. Heart: Normal heart sounds, no murmur or gallop. Abdomen: Soft, bowel sounds normal. No guarding, rigidity, tenderness, mass, hepatosplenomegaly, distention, or bruit noted. Extremities: No leg edema. No calf tenderness. Skin: Multiple old bruising present over both upper extremities. Lymphatics: No lymph node enlargement in neck, supraclavicular, infraclavicular region. Neuro: No focal neurological deficit. Chest: Unremarkable. External Genitalia: Deferred. Rectal: Deferred. Laboratory Data: WBC 7.2, hemoglobin 12.8, platelets 337. Sodium 136, potassium 3.9, chloride 104, bicarb 27, BUN 58, creatinine 1.12, glucose 107. Liver function tests normal. Troponin 302. ProBNP 1011. Lipase 38. CAT scan of the head and cervical spine was negative for any acute changes. CAT scan of the chest, abdomen, pelvis was also negative for any acute findings except presence of diverticulosis with moderate amount of stool burden in the colon. Chest x-ray, no acute cardiopulmonary changes. Urine culture was negative. Impression: 1. Zqg-MP-sfwgxol elevation myocardial infarction. 2. Coronary artery disease. 3. Hypertension. 4. Hyperlipidemia. 5. Chronic kidney disease, stage 3A. 6. Senile dementia. 7. Hypothyroidism. 8. Peripheral neuropathy. 9. Vitamin B12 deficiency. 10. Osteoarthritis, multiple sites. Plan: We will go ahead and admit the patient to hospital for further evaluation and management of this problem. The patient is appropriate for inpatient and is expected to spend 2 midnights in hospital for her non-STEMI. We will consult blood bank calendar control clerk. Continue aspirin. Start Lovenox 50 mg subcutaneous injection daily. We will get echo with Doppler tomorrow. For her hypertension, we will continue her losartan, metoprolol, and amlodipine per order. Monitor blood pressure if necessary. Adjust medication. For hyperlipidemia, we will continue statin therapy. Atorvastatin will increase dose from 20 to 40 mg daily at bedtime. For senile dementia, she takes Seroquel 25 mg daily at bedtime that helps her to rest well at night time and we will continue that. For hypothyroidism, we will continue levothyroxine 0.1 mg daily and I have ordered a TSH and lipid profile to be done in couple of months. Total time spent today was 80 minutes including communication with emergency room physician, review of emergency room visit record, review of last office visit record from 11/17/2024 and performing today's evaluation and management. We will check orthostatic vital signs on her and I have requested Physical Therapy consult as well. FABBY/MODL Voice ID: [id number]
[2025-01-15] MEDS ORDERED: LORazepam 2 MG/ML VIAL ONE (00:15)
[2025-01-15] MEDS: LORazepam 2 MG/ML VIAL IV ONE (00:20)
[2025-01-15] MEDS: LEVOTHYROXINE SOD 0.1 MG TAB PO SCH (06:30)
[2025-01-15 07:53] LABS: Absolute Basophils 0.1 K/uL (0-0.5); Absolute Eosinophils 0.1 K/uL (0-0.5); Absolute Lymphocytes (CBC) 0.9 K/uL (0.7-4.9); Absolute Neutrophil 6.9 K/uL (1.8-8.0); Basophils % 0.7 % (0-1.3); Eosinophils % 0.7 % (0-4.4); Hematocrit 37.7 % (36.0-45.0); Hemoglobin 12.6 g/dL (12.0-15.0); Lymphocytes % 9.8 % (15.3-44.8); MCH 29.5 pg (27.0-35.0); MCHC 33.5 g/dL (32.0-36.0); MCV 88.1 fL (80-100); Monocytes % 11.2 % (3.3-12.3); Neutrophils % 77.6 % (41.7-73.7); Nucleated Red Blood Cells % 0.1 % (0-0); Platelets 324 thou/uL (152-406); RBC Red Blood Cell Count 4.28 M/uL (3.86-4.86); Red Cell Distribution Width 14.2 % (12.1-15.2)
[2025-01-15 08:02] LABS: Anion Gap 10.9 mEq/L (5.0-15.0); Potassium 3.9 mEq/L (3.5-5.1); Thyroid Stimulating Hormone 67.5 uIU/mL (0.358-3.740); Troponin High Sensitivity 299.3 pg/mL (<58.9)
--- NOTE | 2025-01-15 08:13 | RAD REPORT ---
EXAMINATION: CAROTID DUPLEX ULTRASOUND CLINICAL INDICATION: rule out SRINI TECHNIQUE: Real-time grayscale, color flow and spectral Doppler sonographic images were obtained of t he extracranial carotid system using a linear transducer. COMPARISON: No prior exam. FINDINGS: RIGHT: Common carotid artery: 81 cm/s Internal carotid artery: 67 cm/s External carotid artery: 82 cm/s Right ICA/CCA ratio: 0.8 Plaque: Moderate hard plaquing is present Vertebral artery not well seen LEFT: Common carotid artery: 41 cm/s Internal carotid artery: 66 cm/s External carotid artery: 74 cm/s Left ICA/CCA ratio: 1.6 Plaque: Moderate hard plaquing is present. Vertebral artery Antegrade IMPRESSION: The examination was limited by patient motion. There is moderate multifocal hard plaquing seen in bot h carotid systems. Hemodynamically significant stenosis is not seen, within this limitation. The right vertebral artery was not visualized. Consider follow-up CTA of the neck for further evaluation. The degrees of stenosis, if any, are quantified according to the consensus statement of the Society o f Radiologists in Ultrasound (SRUS). Please refer to Reji E, Corey C, Bernard G et al. Carotid Artery Stenosis: Martinez-Scale and Doppler US Diagnosis--Society of Radiologists in Ultrasound Consensus Conference. Radiology. 2003;229(2):340-6.
--- NOTE | 2025-01-15 08:37 | EKG ---
Test Date: 2025-01-14 Test Time: 13:20:41 Stem Crusher: MEASUREMENT RESULTS: Intervals: Rate: 72 DE: 116 QRSD: 78 QT: 410 QTc: 448 [place]: P: 84 DE: 116 QRS: 63 T: 71 INTERPRETIVE STATEMENTS: Sinus rhythm with occasional premature ventricular complexes Otherwise normal ECG Compared to ECG 12/05/2023 09:54:40 Sinus tachycardia no longer present Atrial premature complex(es) no longer present ST (T wave) deviation no longer present Electronically Signed On 01-15-25 08:35:16 CDT by Jose Ramon Giron
[2025-01-15] MEDS: ASPIRIN EC 81 MG TAB PO SCH (09:00)
[2025-01-15] MEDS: CYANOCOBALAMIN 1,000 MCG TAB PO SCH (09:00)
[2025-01-15] MEDS: LOSARTAN POTASSIUM 50 MG TABLET PO SCH (09:00)
[2025-01-15] MEDS ORDERED: METOPROLOL TAR 50 MG TAB ONE (09:17)
[2025-01-15] MEDS ORDERED: LOSARTAN POTASSIUM 50 MG TABLET ONE (09:18)
[2025-01-15] MEDS ORDERED: ASPIRIN EC 81 MG TAB PO ONE (09:18)
[2025-01-15] MEDS ORDERED: ENOXAPARIN 60 MG/0.6 ML SQ ONE (09:18)
[2025-01-15] MEDS ORDERED: AMLODIPINE 5 MG TAB ONE (09:18)
[2025-01-15] MEDS: AMLODIPINE 5 MG TAB PO SCH (10:00)
[2025-01-15] MEDS: ENOXAPARIN 60 MG/0.6 ML SQ SCH (10:38)
--- NOTE | 2025-01-15 10:52 | ECHO ---
HEIGHT: 5 ft 2 in WEIGHT: 110 lb 0.171 oz DATE OF STUDY: 01/15/[address]: Meng Benitez MD 2-DIMENSIONAL: YES M.MODE: YES DOPPLER: YES COLOR FLOW: YES TDS: YES PORTABLE: YES DEFINITY: BUBBLE STUDY: DIAGNOSIS: NON ST ELEVATION MYOCARDIAL INFARCTION CARDIAC HISTORY: CATHERIZATION: NO SURGERY: NO PROSTHETIC VALVE: NO PACEMAKER: NO MEASUREMENTS (cm) DIASTOLIC (NORMALS) SYSTOLIC (NORMALS) IVSd 0.9 (0.6-1.2) LA Diam 2.3 (1.9-4.0) LVEF 60-65% LVIDd 3.0 (3.5-5.7) LVIDs 2.1 (2.0-3.5) %FS 29% LVPWd 1.0 (0.6-1.2) Ao Diam 2.4 (2.0-3.7) 2 DIMENSIONAL ASSESSMENT: RIGHT ATRIUM: NORMAL LEFT ATRIUM: MILD DILATED RIGHT VENTRICLE: NORMAL LEFT VENTRICLE: NORMAL TRICUSPID VALVE: MILD TRICUSPID REGURGITATION MITRAL VALVE: MILD MITRAL REGURGITATION PULMONIC VALVE: NORMAL AORTIC VALVE: MILD AORTIC REGURGITATION PERICARDIAL EFFUSION: NONE AORTIC ROOT: NORMAL LEFT VENTRICULAR WALL MOTION: NORMAL DOPPLER/COLOR FLOW: DIASTOLIC DYSFUNCTION COMMENTS: 1. NORMAL LEFT VENTRICULAR SYSTOLIC FUNCTION, EJECTION FRACTION 60-65%, NORMAL WALL MOTION 2. DIASTOLIC DYSFUNCTION 3. NORMAL FILLING PRESSURE TECHNOLOGIST: LILIA ESTRADA
--- NOTE | 2025-01-15 12:14 | P.CNS ---
Date of Consult: 01/15/25 Chief Complaint: fall ,NSTEMI History of Present Illness: Patient is an 89 y/o female with PMH of HTN, HLD, Dementia, was admitted due to repeated fall, report to be secondary to weakness, denies syncope, no palpitations, also denies chest pain, patient mumbles when she talk so it is hard to understand most of her words, denies SOB, no ALBERTS, although her functional status is limited. Allergies Penicillins Adverse Reaction (Verified 11/26/22 09:59) Shortness of breath Home medications list reviewed: Yes Home Medications: Atorvastatin Calcium [Lipitor] 20 mg PO BEDTIME 11/20/22 Levothyroxine [Synthroid] 100 mcg PO [id number] 11/20/22 Losartan Potassium [Cozaar] 50 mg PO DAILY 11/20/22 Metoprolol Tartrate [Lopressor] 50 mg PO BID 11/20/22 Acetaminophen [Tylenol Extra Strength] 500 mg PO Q6HP PRN 12/07/23 Aspirin [Aspirin EC 81 MG] 81 mg PO DAILY 12/07/23 Enoxaparin Sodium [Lovenox 30 MG INJ] 30 mg SQ DAILY 12/07/23 Ondansetron [Zofran] 4 mg PO Q6H PRN 12/07/23 Quetiapine [Seroquel] 25 mg PO BEDTIME 12/07/23 - Past Medical/Surgical History Diabetic: No -: hypertension -: hyperlipidemia -: 11/20/22 NSTEMI -: 11/20/22 gematoma of rt Iliac muscle -: hypothyroid -: ckd -: neuropathy -: vit b12 def anemia -: cad -: dementia -: OA -: debility -: breast lump removal -: hysterectomy x 40 yrs aog - Family History Father Medical History: Cancer - Social History Alcohol use: No CD- Drugs: No Caffeine use: Yes Review of Systems 10-point ROS is otherwise unremarkable Physical Examination Temp Pulse Resp BP Pulse Ox 98.2 F 87 16 170/80 H 98 01/15/25 08:00 01/15/25 10:00 01/15/25 08:00 01/15/25 10:00 01/15/25 08:00 General: Alert, In no apparent distress HEENT: Atraumatic, PERRLA, Mucous membr. moist/pink, EOMI, Sclerae nonicteric Neck: Supple, 2+ carotid pulse no bruit, No LAD, Without JVD or thyroid abnormality Respiratory: Clear to auscultation bilaterally, Normal air movement Cardiovascular: Regular rate/rhythm, Normal S1 S2 Gastrointestinal: Normal bowel sounds, No tenderness Musculoskeletal: No tenderness Integumentary: No rashes Neurological: Normal gait, Normal speech, Normal tone, Normal affect Lymphatics: No axilla or inguinal lymphadenopathy Laboratory Data (last 24 hrs) 01/14/25 01/14/25 01/14/25 13:13 13:13 13:13 WBC 7.20 Hgb 12.8 Hct 38.7 Plt Count 337 PT 11.9 INR 1.05 Sodium 136 Potassium 3.9 BUN 18 Creatinine 1.12 H Glucose 107 H Magnesium 2.4 Total Bilirubin 0.6 AST 27 ALT 30 Alkaline Phosphatase 122 H Lipase 38 - Problems (1) HTN (hypertension) Current Visit: Yes Status: Acute Plan: continue her home medications Lopressor 50 mg po bid Losartan 50 mg daily Norvasc 5 mg daily continue to monitor. (2) HLD (hyperlipidemia) Current Visit: Yes Status: Acute Plan: continue lipitor 40 mg daily (3) Type 2 WA (myocardial infarction) Current Visit: No Status: Acute Plan: Patient denies having chest pain, EKG no significant ST-T wave changes, troponin always elevated, most likely chronic, Echo shows normal EF with normal bonner motion. No further inpatient cardiac work up needed continue ASA 81 mg daily would recommend Plavix 75 mg daily outpatient follow up with cardiology.
[2025-01-15] MEDS: FAMOTIDINE 20 MG/2 ML VIAL IV SCH (17:46)
--- NOTE | 2025-01-15 20:15 | PN ---
Date of Progress Note: 01/15/2025 Subjective: The patient was seen this morning for followup. No new complaints or problems reported by nursing staff. The patient last night was sleeping well after taking Seroquel and then subsequent ly when she had a carotid Doppler done, she woke up and after that she was extremely agitated, confus ed, restless, and nurse called me middle of the night. At that time, Ativan 1 mg IV x1 dose was orde red and that actually helped her very well through rest of the night and when I saw her this morning, she was sleeping. She was still in the emergency room as there were no beds available overnight. Objective: Vital Signs: Reviewed. HEENT: Unremarkable. Lungs: Clear to auscultation. No wheezing. No rales. Heart: Sounds normal. Abdomen: Soft. Bowel sounds normal. No guarding, rigidity, tenderness, distention. Extremities: No leg edema. Impression: 1. Dko-IH-xhewgoekh myocardial infarction. 2. Hypertension. 3. Hyperlipidemia. 4. Senile dementia. 5. Coronary artery disease. Plan: We will follow up with machine i cutter. The consult has been requested. Echo will be done today . We will follow up on that. Continue antihypertensive medication. Lovenox, aspirin, statin therap y, and Seroquel. I have discussed details with the patient's during course of day today. I will see her tomorrow for followup. FABBY/MODL Voice ID: [id number] Report ID: [id number]
--- NOTE | 2025-01-16 11:25 | PN ---
Date of Progress Note: 01/15/2025 Subjective: The patient was seen this morning for followup. She was lying in bed sleeping. Her hus band was with her at bedside. Objective: Vital Signs: Reviewed. HEENT: Unremarkable. Lungs: Clear to auscultation. Heart: Sounds normal. Abdomen: Soft. Bowel sounds normal. No guarding, rigidity, tenderness, distention. Extremities: No leg edema. Laboratory Data: There were no new labs today. Yesterday's labs reviewed and discussed with the lyn hanson's . Her chemistry was unremarkable except BUN 19, creatinine 1.14. Troponin level was 2 99, which was more or less same as day before yesterday, which was 302. Her TSH was extremely high 6 7.5, free T4 was low at 0.38, LDL was 80. Impression: 1. Non-STEMI. 2. Senile dementia. 3. Hypothyroidism. 4. Hypertension. 5. Hyperlipidemia. Plan: We will continue current medication. Continue Seroquel and I have asked nursing staff to chec k her orthostatic vital signs. The patient's has informed me that the patient has been falli ng down almost on a daily basis for last 2 to 3 weeks and at home they both live by themselves. Ther e is no other extra help at home. Their children live out of town and they are not able to come in t o help them because of their own health problems. The patient's is having extreme difficulty handling the patient at home with this recent falls and injuries. He has difficult time getting ___ and I also asked the patient's about her medication compliance because that is my con cern on basis of her TSH. It appears that she is probably not taking her medications regularly and t he patient's informed me that every time he has tried to assist her with the medication, the patient gets mad at him and does not want him to help her at all, so we really do not know if she is taking her medications regularly or not, but I am definitely concerned that she is not and if she is not taking her levothyroxine regularly, then I am concerned that she is probably not taking other med ications regularly also. So what I have asked the patient's is to bring at least a bottle of levothyroxine from home tomorrow for me to review and meanwhile I have given my recommendation for t he patient to go to long term facility instead of returning back home because what I am concern ed about is that it is already challenging for to help her at home and if the patient goes ba ck home, then he is going to require more or less like 24-hour care at home, so the option of long term facility was discussed with him and he is agreeable to do so. Social Service was requested to assist with discharge planning. I also communicated with the patient's regarding advance directives and he informed me that in the past, he had this discussion with the patient and the patie nt did not want any heroic measures like CPR, defibrillation, or ventilator support, and DNR order wa s written in the chart today. Echocardiogram shows normal ejection fraction. Cardiology consultatio n appreciated and [facility] consultant has given recommendation to add Plavix, but I have discussed risk and benefit ratio with the patient's and I am concerned that with her history of recurrent falls, risk of adding Plavix is lot more than the benefit, so my recommendation is not to add Plavix at thi s point and on top of that, we do not even know if she is taking her medications regularly at home or not, so at this point, we will not add Plavix. The patient's understands and agrees with th at. Possible discharge to go to long term facility on Sunday. FABBY/MODL Voice ID: [id number] Report ID: [id number]
[2025-01-16] MEDS: MORPHINE 4 MG/ML SYR IV PRN (13:17)
[2025-01-16] MEDS: ENOXAPARIN 30 MG/0.3 ML SQ SCH (18:39)
[2025-01-17] MEDS: MORPHINE 2 MG/ML SYR IV PRN (04:46)
[2025-01-17] MEDS: D5 0.9 NS 1,000 ML IV SCH (09:32)
[2025-01-17 09:34] LABS: Absolute Basophils 0.1 K/uL (0-0.5); Absolute Eosinophils 0.1 K/uL (0-0.5); Absolute Lymphocytes (CBC) 0.7 K/uL (0.7-4.9); Absolute Monocytes 0.9 K/uL (0.1-1.3); Absolute Neutrophil 5.6 K/uL (1.8-8.0); Basophils % 0.7 % (0-1.3); Eosinophils % 0.8 % (0-4.4); Hemoglobin 12.3 g/dL (12.0-15.0); Lymphocytes % 9.3 % (15.3-44.8); MCH 29.7 pg (27.0-35.0); MCHC 33.2 g/dL (32.0-36.0); MCV 89.5 fL (80-100); MPV 7.2 fL (7.6-11.3); Monocytes % 12.3 % (3.3-12.3); Neutrophils % 76.9 % (41.7-73.7); Platelets 311 thou/uL (152-406); RBC Red Blood Cell Count 4.14 M/uL (3.86-4.86); Red Cell Distribution Width 13.9 % (12.1-15.2)
[2025-01-17 09:51] LABS: Anion Gap 12.1 mEq/L (5.0-15.0); Potassium 4.1 mEq/L (3.5-5.1)
[2025-01-17] MEDS: ACETAMINOPHEN 325 MG TABLET PO PRN (10:42)
--- NOTE | 2025-01-17 10:50 | PN ---
Date of Progress Note: 01/17/2025 Subjective: The patient was seen this morning for followup. The patient's was with her at [facility] earlier this morning. Nurse contacted me and informed me that during nighttime, the patient h ad 3 beats run of V-tach. She was sleeping asymptomatic after that. No other problems overnight. T his morning, when I saw her, she was sleeping. Patient's was at bedside and he reported that yesterday patient really did not eat hardly anything during daytime. He does not know if she had an ything for evening meal or not. He did bring a bottle of levothyroxine from home per my request and I reviewed this medication bottle was filled on August 14, 2024, and still has 20 tablets left insid e. So, obviously this medication bottle was filled for 90-day supply 5 months ago and she still has 20 tablets left inside. So it is very clear that she is not taking her medications as prescribed on a regular basis. Laboratory Data: Today's blood work result pending. Impression: 1. Senile dementia. 2. Hypothyroidism. 3. Hypertension. 4. Coronary artery disease. 5. Non-STEMI. 6. Hyperlipidemia. Plan: We will continue current blood pressure and cholesterol medication per order. Continue aspiri n. Continue Lovenox per order. We will continue current levothyroxine and told the patient's husban d that the patient will need to stay on current dose of levothyroxine for about 6-8 weeks, repeat blo od work, then make decision regarding adjustment of the dose. I will also start her on IV fluid D5 n ormal saline at 50 cc/hour and Social Service did communicate with the patient's and the angel ent yesterday. Obviously, the patient did not want to go to alf, but I informed the patient 's that he will need to communicate with the patient and informed her that it is not possible for him to continue to take care of her at home and hopefully she will understand that. I will see her tomorrow for followup. The patient did receive a dose of morphine last night as she was complain ing of abdominal pain as nursing staff reported and I have discontinued morphine. She slept well wit h Seroquel and we will not give any more narcotic pain medication. She has Tylenol ordered for it to be used on an as needed basis. FABBY/MODL Voice ID: [id number] Report ID: [id number]
[2025-01-17] MEDS: NITROGLYCERIN 1 GM PKT TD SCH (22:12)
[2025-01-18] MEDS: ENSURE HIGH PROTEIN 237 ML CAN PO SCH (11:06)
--- NOTE | 2025-01-18 11:11 | PN ---
Date of Progress Note: 01/18/2025 Subjective: The patient was seen this morning for followup. No new complaints or problems reported by the patient. She was lying in bed, not in any distress. Last night, nurse called me and informed me that the patient was refusing to take all her medications and her blood pressure was high, so at that time, nitroglycerin ointment was ordered 1 g every 6 hours. Overnight, the patient slept well w ithout taking any medication as per my discussion with night nurse. This morning, when she called m roberto around 0630 to inform that the patient had 3-beat run of V-tach and has frequent PVCs, but she did sleep well last night. This morning, when I saw her, patient was lying in bed, awake, was having mary e hallucinations as looking at the sharp disposal in the room, she thought that it was somebody's bruna t there and other form of hallucinations as I was communicating with her. Her breakfast tray was sit ting next to her and she did not want to eat at all. The patient's was there with her and I have encouraged to at least try and see whether she will eat for him and also try to encourag e her to have Ensure 2-3 times a day. The patient's has informed me that as of yesterday, anne-marie sky was willing to go to [facility]. Objective: Vital Signs: Reviewed. HEENT: Unremarkable. Lungs: Clear to auscultation. Heart: Sounds normal. Abdomen: Soft. Bowel sounds normal. No guarding, rigidity, tenderness, distention. Extremities: No leg edema. Neuro: No focal neurological deficits. Impression: 1. Non-STEMI. 2. Coronary artery disease. 3. Hypertension. 4. Hyperlipidemia. 5. Hypothyroidism. 6. Senile dementia. Plan: We will continue current medication. Patient's was told that if she refuses medicatio n we cannot force it upon her to take the medication, but hopefully he can try to convince her to sai e medication. Another important problem will be nutrition and I have encouraged her to eat her 3 curry ls regularly and also try to use supplement like Ensure and will try to encourage her to do s o. The patient is already on metoprolol and hopefully she will take it. We will continue other curr ent statin therapy, levothyroxine, aspirin. I did communicate with Social Service after I saw her re garding the patient and the 's preference to go to [facility]. Hopefully, if arrang ements can be completed tomorrow, we will discharge her to go to the facility. I also discussed with the patient's that if she continues to go down here with her poor appetite and not wanting t o take medication, then he may have to consider hospice care. FABBY/JACOB Voice ID: [id number] Report ID: [id number]
[2025-01-19] MEDS: LEVOTHYROXINE SOD 0.112 MG TAB PO SCH (09:00)
[2025-01-19 12:22] VITALS: O2SAT 96
[2025-01-19 12:25] VITALS: BP 140/63; TEMP 97.9
--- NOTE | 2025-01-20 02:28 | DS ---
Date of Discharge: 01/19/2025 Disposition: Discharged to go home. Physical Examination: HEENT: Unremarkable. Lungs: Clear to auscultation. Heart: Sounds normal. Abdomen: Soft. Bowel sounds normal. No guarding, rigidity, tenderness, distention. Extremities: No leg edema. Laboratory Data: Upon admission on 01/14/2025, WBC 7.2, hemoglobin 12.8, platelets 337. Last CBC fr om 01/17/2025, WBC 7.2, hemoglobin 12.3, platelets 311. Chemistry upon admission, sodium 136, potass ium 3.9, chloride 104, bicarb 27, BUN 18, creatinine 1.12, glucose 107. Liver function tests unremar kable. Initial troponin 302. Second troponin 299.3. ProBNP 1011. Last chemistry from 01/17/2025, sodium 139, potassium 4.1, chloride 108, bicarb 23, BUN 17, creatinine 1.15, glucose 88. Her TSH fro 01/15/2025 was 67.5, LDL was 80, HDL 84. Discharge Medications And Instructions: 1. . 2. . 3. . Hospital Course: An 89-year-old female patient, who was brought into emergency room because of multi ple recurrent falls lately. Please see dictated H and P for more information. The patient was livin g at home with her and lately she has been falling down very frequently as per my discussion with . He informed me that the patient was falling down lately almost on a daily basis and it was getting difficult for him to try to help her at home, so with this, he brought her to emergency room. After she was evaluated, she was admitted to hospital. The patient's chest x-ray was negative for any acute changes. CAT scan of the chest, abdomen, and pelvis done in the emergency room when s he first arrived was negative for any acute findings. The patient's TSH was extremely elevated and italo mejia determined after reviewing her home medication bottle of levothyroxine that the patient was not sai ing medications on a regular basis and I am concerned that if she was not taking levothyroxine regula rly, there is a good possibility she was not taking other medications regularly also. I did communic ate with the patient's regarding all these details. Cardiology consultation was requested fr Dr. Giron for non-STEMI. Echocardiogram showed normal ejection fraction. The patient did not pa rticipate much with physical therapy. She did not eat or drink much in the beginning. She was sleep ing most of the time and we had to give her some maintenance IV fluid. Subsequently, she started to eat, did not have any trouble swallowing, but her oral intake was poor, so nutritional supplement Ens ure was ordered. The patient was not cooperative as far as her feeding and therapy is concerned and I did communicate with the patient's over the weekend in details regarding care plan and he i nformed me that he is not able to take her back home and he would like for her to go to skilled nursi facility, so Social Service was consulted and today after all arrangements completed, the patient was discharged to go to snf facility as per 's choice. Also communicated with the patient's regarding living will and DNR order was written in the chart. On telemetry monito r, the patient had 3-beat run of ventricular tachycardia few times and short runs of supraventricular tachycardia. The patient was not compliant with medications either. Overall, prognosis is poor. I did inform the patient's that depending on how she does at the snf facility, if she continues to go downhill and her condition declines, then he will need to consider hospice care f or her. Final Diagnoses: 1. Non-ST myocardial infarction. 2. Coronary artery disease. 3. Hypertension. 4. Hyperlipidemia. 5. Chronic kidney disease stage IIIA. 6. Hypothyroidism. 7. Senile dementia. 8. Peripheral neuropathy. 9. Vitamin B12 deficiency. 10. Osteoarthritis, multiple sites. Total time spent is today 40 minutes. FABBY/MODL Voice ID: [id number] Report ID: [id number]
== END 2025-01-19 13:32 | DRG 281 ==
LOC: ER 11:00 → ERHOLD 16:59 → 4TH 01-15 12:51
PROVIDERS: ADMIT Internal Medicine; ATTEND Internal Medicine
DX: I21.4 Non-ST elevation (NSTEMI) myocardial infarction (principal); I47.20 Ventricular tachycardia, unspecified; E03.9 Hypothyroidism, unspecified; I12.9 Hypertensive chronic kidney disease with stage 1 through stage 4 chronic kidney disease, or unspecified chronic kidney disease; N18.31 Chronic kidney disease, stage 3a; E11.22 Type 2 diabetes mellitus with diabetic chronic kidney disease; E11.42 Type 2 diabetes mellitus with diabetic polyneuropathy; E53.8 Deficiency of other specified B group vitamins; M19.09 Primary osteoarthritis, other specified site; E78.00 Pure hypercholesterolemia, unspecified; S19.9XXA Unspecified injury of neck, initial encounter; S39.92XA Unspecified injury of lower back, initial encounter; S29.9XXA Unspecified injury of thorax, initial encounter; I25.10 Atherosclerotic heart disease of native coronary artery without angina pectoris; F03.90 Unspecified dementia, unspecified severity, without behavioral disturbance, psychotic disturbance, mood disturbance, and anxiety; R29.6 Repeated falls; Z88.0 Allergy status to penicillin; Z91.81 History of falling; Z79.82 Long term (current) use of aspirin; Z79.890 Hormone replacement therapy; Z79.899 Other long term (current) drug therapy; Z90.710 Acquired absence of both cervix and uterus; W18.30XA Fall on same level, unspecified, initial encounter; Y93.01 Activity, walking, marching and hiking; Y99.9 Unspecified external cause status; Y92.019 Unspecified place in single-family (private) house as the place of occurrence of the external cause
CPT/HCPCS: 36415; 70450; 71045; 71250; 72125; 74176; 80048; 80061; 80076; 81001; 83690; 83735; 83880; 84439; 84443; 84484; 85025; 85610; 93005; 93306; 93880; 96361; 96372; 96374; 97161; 97530; 99285; J1650; J2270; J7030; J7042

== ENCOUNTER 2025-02-13 14:46 | Inpatient (IN) | payer OTHER ==
[2025-02-13 15:38] LABS: Absolute Lymphocytes (CBC) 0.5 K/uL (0.7-4.9); Absolute Monocytes 0.9 K/uL (0.1-1.3); Absolute Neutrophil 8.6 K/uL (1.8-8.0); Basophils % 0.1 % (0-1.3); Eosinophils % 0.3 % (0-4.4); Hematocrit 34.4 % (36.0-45.0); Hemoglobin 11.9 g/dL (12.0-15.0); Lymphocytes % 5.2 % (15.3-44.8); MCH 29.3 pg (27.0-35.0); MCHC 34.5 g/dL (32.0-36.0); MCV 84.7 fL (80-100); MPV 7.5 fL (7.6-11.3); Monocytes % 9.3 % (3.3-12.3); Neutrophils % 85.1 % (41.7-73.7); Platelets 314 thou/uL (152-406); RBC Red Blood Cell Count 4.06 M/uL (3.86-4.86); Red Cell Distribution Width 14.5 % (12.1-15.2)
[2025-02-13] MEDS ORDERED: NA CHLORIDE 0.9% 1,000 ML ONE ×2 (15:38→17:24)
[2025-02-13 15:55] LABS: Albumin 2.7 g/dL (3.4-5.0); Albumin/Globulin Ratio 0.6 (1.1-1.8); Anion Gap 12.5 mEq/L (5.0-15.0); Bilirubin Total 0.8 mg/dL (0.2-1.0); Globulin 4.5 g/dL (2.3-3.5); Magnesium 2.6 mg/dL (1.6-2.4); Potassium 5.5 mEq/L (3.5-5.1); Protein, Total 7.2 g/dL (6.4-8.2)
[2025-02-13 17:08] LABS: Blood Morphology Comment NOT SEEN (NOT SEEN); Platelet Estimate ADEQ; White Blood Cell Scan OK (OK)
--- NOTE | 2025-02-13 17:53 | EDPHYS ---
Physician Documentation [facility] Name: Rashmi Lehman Age: 89 yrs Sex: Female : 1935 Arrival Date: 02/13/2025 Time: 14:46 Bed 6 Private MD: ED Physician Arnoldo Miner HPI: 02/13 15:39 This 89 yrs old Female presents to ER via EMS with complaints of Abnormal Lab Results. rt 15:39 Patient presents to the ED with abnormal lab results on outpatient labs. Patient labs rt drawn yesterday, potassium was reportedly 5.4, sodium 129 and a creatinine of 4. Patient states that she has no symptoms, does not know why she is in the hospital. Symptoms are moderate in severity, no other aggravating or alleviating factors.. Historical: - Allergies: 15:07 PENICILLINS; jl7 - PMHx: 15:07 Hypercholesterolemia; Hypertensive disorder; Hypothyroidism; jl7 - PSHx: 15:07 eye; Tonsillectomy; Total abdominal hysterectomy; jl7 - Immunization history:: Adult Immunizations unknown. - Infectious Disease History:: Denies. - Social history:: Smoking status: Patient denies any tobacco usage or history of. - Family history:: not pertinent. ROS: 15:39 Constitutional: Negative for fever, chills, and weight loss, Cardiovascular: Negative rt for chest pain, palpitations, and edema, Respiratory: Negative for shortness of breath, cough, wheezing, and pleuritic chest pain, Abdomen/GI: Negative for abdominal pain, nausea, vomiting, diarrhea, and constipation, MS/Extremity: Negative for injury and deformity, Skin: Negative for injury, rash, and discoloration, Neuro: Negative for headache, weakness, numbness, tingling, and seizure, Exam: 15:39 Constitutional: This is a well developed, well nourished patient who is awake, alert, rt and in no acute distress. Head/Face: Normocephalic, atraumatic. Chest/axilla: Normal chest wall appearance and motion. Nontender with no deformity. No lesions are appreciated. Cardiovascular: Regular rate and rhythm with a normal S1 and S2. No gallops, murmurs, or rubs. Normal PMI, no JVD. No pulse deficits. Respiratory: Lungs have equal breath sounds bilaterally, clear to auscultation and percussion. No rales, rhonchi or wheezes noted. No increased work of breathing, no retractions or nasal flaring. Abdomen/GI: Soft, non-tender, with normal bowel sounds. No distension or tympany. No guarding or rebound. No evidence of tenderness throughout. MS/ Extremity: Pulses equal, no cyanosis. Neurovascular intact. Full, normal range of motion. Neuro: Awake and alert, GCS 15, oriented to person, place, time, and situation. Cranial nerves II-XII grossly intact. Motor strength 5/5 in all extremities. Sensory grossly intact. Cerebellar exam normal. Normal gait. 15:39 ENT: Dry mucous membranes. 15:39 ECG was reviewed by the Attending Physician. Vital Signs: 15:05 BP 129 / 50; Pulse 87; Resp 15; Temp 97; Pulse Ox 100% ; jl7 15:46 BP 132 / 68; Pulse 81; Resp 14; Pulse Ox 99% ; hb 17:00 BP 111 / 66; Pulse 87; Resp 15; Pulse Ox 100% ; jl7 18:46 BP 109 / 80; Pulse 94; Resp 14; Pulse Ox 98% ; hb 19:56 BP 109 / 80; Pulse 93; Resp 17 S; Pulse Ox 98% on R/A; ha1 MDM: 15:04 Medical Screening Exam initiated rt 17:53 Differential Diagnosis Acute renal insufficiency, intravascular bomb depletion, rt electrolyte disturbance. Data reviewed: vital signs, nurses notes, lab test result(s), EKG. Consideration of Admission/Observation Patient was admitted/placed on observation. Management of patient was discussed with the following: Hospitalist: Agrees to admit. I considered the following discharge prescriptions or medication management in the emergency department Medications were administered in the Emergency Department. See MAR. Test considered but Not performed: CT: Low suspicion for obstructive nephropathy, CT scan is not indicated. Care significantly affected by the following chronic conditions: Hypertension. Counseling: I had a detailed discussion with the patient and/or guardian regarding the historical points, exam findings, and any diagnostic results supporting the discharge/admit diagnosis, lab results, the need for further work-up and treatment in the hospital. Response to treatment: There is no appreciated change of the patient's symptoms at this time. 02/13 15:10 Order name: CBC with Diff; Complete Time: 17:10 rt 02/13 15:10 Order name: CMP; Complete Time: 15:57 rt 02/13 15:10 Order name: Magnesium; Complete Time: 15:57 rt 02/13 17:09 Order name: CBC Smear Scan; Complete Time: 17:10 EDNC 02/13 19:16 Order name: Lactate w/ 2H reflex if indic. [facility] 02/13 19:16 Order name: Magnesium [facility] 02/13 19:16 Order name: Phosphorus [facility] 02/13 19:16 Order name: Basic Metabolic Panel [facility] 02/13 19:16 Order name: Basic Metabolic Panel [facility] 02/13 19:16 Order name: Comprehensive Metabolic Panel [facility] 02/13 19:16 Order name: Comprehensive Metabolic Panel [facility] 02/13 19:16 Order name: Lipid Profile [facility] 02/13 19:16 Order name: Lipid Profile [facility] 02/13 19:17 Order name: Renal Ultrasound-Complete [facility] 02/13 15:10 Order name: EKG; Complete Time: 15:11 rt 02/13 15:10 Order name: EKG - Nurse/Tech; Complete Time: 15:37 rt EC:39 Rate is 86 beats/min. Rhythm is regular, Normal Sinus Rhythm with No ectopy. QRS [place] rt is Normal. MO interval is normal. QRS interval is normal. QT interval is normal. No Q waves. No ST changes noted. Interpreted by me. Administered Medications: 15:44 Drug: NS 0.9% IV 1000 ml IV at 1 bolus Per protocol; to be given as a bolus over 60 hb minutes Route: IV; Rate: 1 bolus; Site: right antecubital; 17:10 Follow up: Response: No adverse reaction; IV Status: Completed infusion; IV Intake: hb 1000ml 17:45 Drug: NS 0.9% IV 1000 ml IV at 125 ml/hr Per protocol; to be given as a bolus over 60 jl7 minutes Route: IV; Rate: 125 ml/hr; Site: right antecubital; 19:56 Follow up: Response: No adverse reaction; IV Status: Infusion continued upon admission ha1 Disposition Summary: 02/13/25 17:53 Hospitalization Ordered Notes: Hospitalization Status: Inpatient Admission rt Provider: Prince Vinh rt Location: Telemetry/MedSur (Inpatient) rt Condition: Fair rt Problem: new rt Symptoms: are unchanged rt Bed/Room Type: Standard rt Room Assignment: 217(02/13/25 19:18) rv1 Diagnosis - Acute kidney injury rt - Hyperkalemia rt - Hyponatremia rt Forms: - Medication Reconciliation Form rt - SBAR form rt - Leadership Thank You Letter rt Critical care time excluding procedures: 17:56 Critical care time: Bedside Care: 30 minutes, Consultation: 5 minutes. Total time: 35 rt minutes Signatures: Dispatcher [employer] EDSuni Covarrubias RN RN Ryanne Canada RN RN jl7 Arnoldo Miner MD MD rt [place] rv1 Katy Manrique RN ha1 Corrections: (The following items were deleted from the chart) 19:18 17:53 rt rv1
--- NOTE | 2025-02-13 17:53 | ER ---
Nurse's Notes [facility] Name: Rashmi Lehman Age: 89 yrs Sex: Female : 1935 Arrival Date: 02/13/2025 Time: 14:46 Bed 6 Private MD: Diagnosis: Acute kidney injury;Hyperkalemia;Hyponatremia Presentation: 02/13 15:05 Chief complaint: EMS states: Toned out for abnormal lab values, sodium 129, potassium jl7 5.3. Coronavirus screen: At this time, the client does not indicate any symptoms associated with coronavirus-19. Ebola Screen: No symptoms or risks identified at this time. Initial Sepsis Screen: Does the patient meet any 2 criteria? No. Patient's initial sepsis screen is negative. Does the patient have a suspected source of infection? No. Patient's initial sepsis screen is negative. Risk Assessment: Do you want to hurt yourself or someone else? Patient reports no desire to harm self or others. Onset of symptoms is unknown. Care prior to arrival: None. 15:05 Method Of Arrival: EMS: [facility] jl7 15:05 Acuity: FIONA 3 jl7 Triage Assessment: 15:07 General: Appears in no apparent distress. uncomfortable, Behavior is calm, cooperative. jl7 Pain: Denies pain. Neuro: Level of Consciousness is awake, alert, obeys commands. Historical: - Allergies: 15:07 PENICILLINS; jl7 - PMHx: 15:07 Hypercholesterolemia; Hypertensive disorder; Hypothyroidism; jl7 - PSHx: 15:07 eye; Tonsillectomy; Total abdominal hysterectomy; jl7 - Immunization history:: Adult Immunizations unknown. - Infectious Disease History:: Denies. - Social history:: Smoking status: Patient denies any tobacco usage or history of. - Family history:: not pertinent. Screenin:08 [facility] ED Fall Risk Assessment (Adult) History of falling in the last 3 months, jl7 including since admission No falls in past 3 months (0 pts) Confusion or Disorientation Yes (5 pts) Intoxicated or Sedated No (0 pts) Impaired Gait No (0 pts) Mobility Assist Device Used No (0 pt) Altered Elimination Yes (1 pt) Score/Fall Risk Level 3 or more points = High Risk Oriented to surroundings, Maintained a safe environment, Hourly rounding (assess needs \T\ fall precautionary measures) done. Abuse screen: Denies threats or abuse. Denies injuries from another. Nutritional screening: No deficits noted. Tuberculosis screening: No symptoms or risk factors identified. Assessment: 15:46 General: Appears in no apparent distress. Behavior is calm, cooperative. Pain: Denies hb pain. Neuro: Level of Consciousness is awake, alert, obeys commands, Oriented to person, place. Cardiovascular: Patient's skin is warm and dry. Respiratory: Respiratory effort is even, unlabored, Respiratory pattern is regular, symmetrical. GI: No signs and/or symptoms were reported involving the gastrointestinal system. : No signs and/or symptoms were reported regarding the genitourinary system. EENT: No signs and/or symptoms were reported regarding the EENT system. Derm: Skin is pink, warm \T\ dry. Musculoskeletal: No signs and/or symptoms reported regarding the musculoskeletal system. 17:07 Reassessment: Patient appears in no apparent distress at this time. No changes from hb previously documented assessment. Patient and/or family updated on plan of care and expected duration. Pain level reassessed. 18:46 Reassessment: No changes from previously documented assessment. Patient and/or family hb updated on plan of care and expected duration. Pain level reassessed. 19:53 General: Appears comfortable, Behavior is calm, cooperative. Pain: Unable to use pain ha1 scale. FLACC scale score is 0 out of 10. Neuro: Level of Consciousness is awake, alert, obeys commands, Oriented to person. Cardiovascular: Patient's skin is warm and dry. Respiratory: Airway is patent Respiratory effort is even, unlabored, Respiratory pattern is regular, symmetrical. GI: No signs and/or symptoms were reported involving the gastrointestinal system. Abdomen is round. : No signs and/or symptoms were reported regarding the genitourinary system. Derm: Skin is fragile, Skin is normal. Vital Signs: 15:05 BP 129 / 50; Pulse 87; Resp 15; Temp 97; Pulse Ox 100% ; jl7 15:46 BP 132 / 68; Pulse 81; Resp 14; Pulse Ox 99% ; hb 17:00 BP 111 / 66; Pulse 87; Resp 15; Pulse Ox 100% ; jl7 18:46 BP 109 / 80; Pulse 94; Resp 14; Pulse Ox 98% ; hb 19:56 BP 109 / 80; Pulse 93; Resp 17 S; Pulse Ox 98% on R/A; ha1 ED Course: 14:54 Patient arrived in ED. eb 14:59 Arnoldo Miner MD is Attending Physician. rt 15:03 EKG done, by ED staff, reviewed by Arnoldo Miner MD. Inserted saline lock: 22 gauge hb in right antecubital area, using aseptic technique. Blood collected. Flushed with 10 mL NS. 15:05 Ryanne Canada, KORINA is Primary Nurse. jl7 15:07 Triage completed. jl7 15:07 Arm band placed on right wrist. jl7 15:08 Patient has correct armband on for positive identification. Placed in gown. Bed in low jl7 position. Call light in reach. Side rails up X2. Provided Education on: use of call fajardo. Client placed on continuous cardiac and pulse oximetry monitoring. NIBP monitoring applied. manager monitoring on. Pulse ox on. Warm blanket given. 15:37 CMP Sent. hb 15:37 Magnesium Sent. hb 15:37 CBC with Diff Sent. hb 17:52 Prince Justice MD is Hospitalizing Provider. rt 20:12 Patient admitted, IV remains in place. ha1 20:13 No provider procedures requiring assistance completed. ha1 Administered Medications: 15:44 Drug: NS 0.9% IV 1000 ml IV at 1 bolus Per protocol; to be given as a bolus over 60 hb minutes Route: IV; Rate: 1 bolus; Site: right antecubital; 17:10 Follow up: Response: No adverse reaction; IV Status: Completed infusion; IV Intake: hb 1000ml 17:45 Drug: NS 0.9% IV 1000 ml IV at 125 ml/hr Per protocol; to be given as a bolus over 60 jl7 minutes Route: IV; Rate: 125 ml/hr; Site: right antecubital; 19:56 Follow up: Response: No adverse reaction; IV Status: Infusion continued upon admission ha1 Medication: 15:08 VIS not applicable for this client. jl7 Intake: 17:10 IV: 1000ml; Total: 1000ml. hb Outcome: 17:53 Decision to Hospitalize by Provider. rt 21:23 Admitted to Med/surg accompanied by tech, via stretcher, room 217, with chart, ha1 21:23 Condition: stable 21:23 Instructed on the need for admit, Demonstrated understanding of instructions, 21:23 Patient left the ED. ha1 Signatures: Suni Rivero, RN RN Ryanne Licea RN RN jl7 Cande Becerra Heidy, RN RN ha1 Arnoldo Miner MD MD rt
[2025-02-13] MEDS ORDERED: IPRATROPIUM BROM 0.5MG/2.5ML NEB PRN (19:12)
[2025-02-13] MEDS ORDERED: ONDANSETRON 4 MG/2 ML VIAL IV PRN (19:12)
[2025-02-13] MEDS ORDERED: ALBUTEROL 2.5 MG/3 ML NEB SOL NEB PRN (19:12)
--- NOTE | 2025-02-13 19:18 | P.HP ---
Certification for Inpatient Patient admitted to: Inpatient With expected LOS: >2 Midnights Practitioner: I am a practitioner with admitting privileges, knowledge of patient current condition, hospital course, and medical plan of care. Services: Services provided to patient in accordance with Admission requirements found in Title 42 Section 412.3 of the Code of Federal Regulations Patient History Date of Service: 02/13/25 Reason for admission: Acute kidney failure History of Present Illness: Patient is a 89-year-old female [facility] for evaluation of abnormal lab results. She has been found to have acute kidney injury creatinine of 4.9. Baseline creatinine 1.2. She has recently been transition to jail. She used to follow with Dr. Benitez who has now transferred the care to the hospitalist service. During my evaluation, patient was awake and slightly frail. She is a poor historian. She denies recent episodes of volume loss via diarrhea or vomiting. Could not establish if she is currently taking NSAIDs. 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 -: hypothyroid -: ckd -: neuropathy -: vit b12 def anemia -: cad -: dementia -: OA -: debility -: breast lump removal -: hysterectomy x 40 yrs aog - Family History Father -: Cancer - Social History Alcohol use: No CD- Drugs: No Caffeine use: Yes Physical Examination - Physical Exam General: In no apparent distress, Confused, Other (Frail) HEENT: Atraumatic, Normocephalic Respiratory: Clear to auscultation bilaterally, Normal air movement Cardiovascular: No edema, Normal pulses, Regular rate/rhythm, Normal S1 S2 Neurological: Normal speech, Dementia - Studies Laboratory Data (last 24 hrs) 02/13/25 02/13/25 15:21 15:21 WBC 10.20 Hgb 11.9 L Hct 34.4 L Plt Count 314 Sodium 125 L Potassium 5.5 H BUN 106 H Creatinine 4.62 H Glucose 123 H Magnesium 2.6 H Total Bilirubin 0.8 AST 24 ALT 36 Alkaline Phosphatase 98 Assessment and Plan - Problems (Diagnosis) (1) Acute kidney injury Current Visit: Yes Status: Acute (2) HLD (hyperlipidemia) Current Visit: No Status: Acute (3) HTN (hypertension) Current Visit: No Status: Acute (4) rn long term care (current) use of anticoagulants Current Visit: No Status: Acute - Plan Assessment This is a elderly 89-year-old female who is being admitted after she was brought in from jail for evaluation of abnormal blood work. She has hyperkalemia and acute kidney injury. Potassium is at 5.5 and creatinine 4.9. Patient's EKG revealed normal sinus rhythm. Patient is a poor historian. Acute kidney injury Hyperkalemia Hypertension Type 2 diabetes mellitus Hyperlipidemia Plan: Will admit inpatient with telemetry A trial of volume repletion with normal saline Renal ultrasound and nephrology consult Avoid nephrotoxins Resume rest of home medications upon reconciliation DVT prophylaxis with heparin subcu - Advance Directives Does patient have a Living Will: No Does patient have a Durable POA for Healthcare: No
[2025-02-13] MEDS: NA CHLORIDE 0.9% 1,000 ML IV SCH (20:00)
[2025-02-14 00:34] LABS: Magnesium 2.4 mg/dL (1.6-2.4); Phosphorus 4.1 mg/dL (2.5-4.9)
[2025-02-14] MEDS: HEPARIN 5000 UNIT/ML 1 ML VIAL SQ SCH (00:44)
[2025-02-14] MEDS: NA CHLORIDE 0.9% 1,000 ML IV SCH (03:20)
[2025-02-14 05:39] LABS: Albumin 2.5 g/dL (3.4-5.0); Albumin/Globulin Ratio 0.6 (1.1-1.8); Anion Gap 13.6 mEq/L (5.0-15.0); Bilirubin Total 0.8 mg/dL (0.2-1.0); Globulin 4.2 g/dL (2.3-3.5); Potassium 4.6 mEq/L (3.5-5.1); Protein, Total 6.7 g/dL (6.4-8.2)
--- NOTE | 2025-02-14 06:26 | RAD REPORT ---
EXAMINATION: US RETROPERITONEUM CLINICAL INDICATION: KEVIN TECHNIQUE: Real-time ultrasonography of the abdomen was performed. COMPARISON: 11/22/2022 FINDINGS: RIGHT KIDNEY: Right renal length measurement: 9 cm. Normal in echogenicity and size. No calculus, sudha id mass or hydronephrosis. LEFT KIDNEY: Left renal length measurement: 9.1 cm. Mild left-sided hydronephrosis with collecting sy stem debris and probable urothelial thickening. Normal echotexture of the kidney. No suspicious mass. ADDITIONAL FINDINGS: Significant bladder debris present. IMPRESSION: Mild left-sided hydronephrosis with urothelial thickening, collecting system debris, and bladder debr is could reflect sequela of left-sided left-sided polynephritis and cystitis.
[2025-02-14] MEDS ORDERED: ALBUTEROL 2.5 MG/3 ML NEB SOL NEB PRN (09:04)
[2025-02-14] MEDS: ASPIRIN 81 MG CHEWABLE TABLET PO SCH (10:19)
[2025-02-14] MEDS: NA CHLORIDE 0.9% 1,000 ML IV ONE (10:35)
--- NOTE | 2025-02-14 11:55 | CON ---
Date of Consultation: 02/14/2025 Reason For Consultation: Elevated BUN and creatinine. History Of Present Illness: All the information has been obtained from the record as the patient dementia's advanced. This is an 89-year-old female with significant past medical history of hypertension, hyperlipidemia, dementia, intermediate resident. Patient was brought to the hospital because of altered mental status. Upon arrival to the hospital, the patient was found to have elevation in creatinine of 4.9. The patient apparently as outpatient being on ARB. The patient has poor intake. The patient was started on IV hydration. Kidney function has been improved. Baseline creatinine was 1.1 back in December 2024. The patient was started on hydration, creatinine down to 3.2. Past Medical History: 1. Hypertension. 2. Hyperlipidemia. 3. CAD, status post PR. 4. Hypothyroidism. 5. Chronic kidney disease, baseline creatinine 1.1 as of December 2024. 6. Dementia. Past Surgical History: Include breast lump removal, hysterectomy. Family History: None obtainable. Social History: Lives in intermediate, none obtainable. Review of Systems: None obtainable. Physical Examination: Vital Signs: When I saw the patient, the patient sitting in the bed comfortable, not on any distress. Vital Signs: Blood pressure 136/64, pulse of 94. Chest: Clear to auscultation. Heart: S1, S2. Regular. Abdomen: Soft, tenderness on the left lower quadrant. No guarding, no rebound. Extremities: No edema. Neuro: Alert, no focality. Confused. Laboratory Data: Back in December, creatinine 1.1. Hemoglobin 12.3. Upon arrival to the hospital, sodium 125, potassium 5.5, bicarb 20, BUN 106, creatinine 4.6, calcium 8.9. Hemoglobin 11.9. Today's lab data; sodium 134, potassium 4.6, bicarb 19, BUN 88, creatinine 3.2, GFR of 13, calcium 8.3, albumin 2.5, corrected calcium is 9.5. Urinalysis not done yet. Current Medications: The patient on include heparin, albuterol, aspirin, atorvastatin, IV fluid. Assessment And Plan: 1. Acute kidney injury secondary to prerenal, obstructive uropathy has been ruled out with a CAT scan superimposed with ARB, questionable acute tubular necrosis secondary to urinary tract infection. The patient looked to me still on the dry side. Acute kidney injury complicated with hyperkalemia. a. I agree with holding the losartan. b. We will bolus the patient with another liter of normal saline and we will continue hydration. We will follow up the patient. 2. Hypertension with the presence of acute kidney injury and hyperkalemia. Hold losartan. Continue hydration. 3. Abdominal pain, questionable of UTI. We will send for UA and we will follow up. 4. Hyponatremia, depletional. Continue hydration, currently resolved. 5. Hyperkalemia secondary to renal failure, superimposed with ARB, resolved. Keep holding ARB. We will continue hydration. 6. Acidosis, non-anion gap metabolic acidosis secondary to IV fluid. Continue normal saline. 7. Dementia by primary. 8. Hydronephrosis on the left side, mild. We will follow up after a few days with ultrasound and we will monitor. Given the improvement in the kidney function, I do not think she needs any intervention for the time being. Time spent examining the patient [id number] reviewing that the lab and the radiology placing order discussing the case the grocery team member including hospitalist and nursing staff more than 75 minutes GUERO Voice ID: [id number] Report ID: [id number] BRAD
--- NOTE | 2025-02-14 16:36 | P.PN ---
Date of Service: 02/14/25 Subjective Awake and confused conversation No complaints ROS 10 point ROS as noted above, otherwise negative General: Alert, NAD HEENT: MMM, nare normal Head/Neck: Normocephalic, atraumatic, neck supple Respiratory: symmetrical chest expansion, no accessory muscles used, lungs clear on ausultation Cardiac: RRR, no murmurs or gallops noted Extremities: No edema present, peripheral pulses 2+ Abdominal: soft, NT/ND on palpation Skin: warm pink and dry Neurological: clear speech, dementia Vitals Reviewed Problem list Acute kidney injury Hyperkalemia Left sided hydronephrosis Sirs of unknown source Hypertension Type 2 diabetes mellitus Hyperlipidemia Assessment and Plan Acute kidney injury Hyperkalemia Left sided hydronephrosis Sirs of unknown source -Sirs Criteria respiratory rate 23, heart rate 97 -2 L normal saline completed -Renal ultrasound reports "Mild left-sided hydronephrosis with urothelial thickening, collecting system debris, and bladder debris could reflect sequela of left-sided polynephritis and cystitis" -nephrology consult, recommend continue monitoring, improvement to creatinine and potassium -Avoid nephrotoxins -Started rocephin -UA pending Hypertension Type 2 diabetes mellitus Hyperlipidemia - Continue rest of home medications upon reconciliation DVT prophylaxis with heparin subcu Full code LOS 2 days <Carolin Nayak - Last Filed: 02/14/25 16:18> I have personally reviewed and discussed the patient's history, physical exam findings, assessment, and plan as documented by Carolin Nayak NP. I confirmed the accuracy of the information and agree with the management of the plan as outlined <Betsey Gutierrez - Last Filed: 02/14/25 16:42>
[2025-02-14 16:48] LABS: Specific Gravity 1.012 (1.005-1.030); Sqamous Epithelial None Seen /HPF (None Seen); Urine Bacteria 20-50 /HPF (<20); Urine Bilirubin NEGATIVE (Negative); Urine Blood 3+ (OVER) (Negative); Urine Clarity Extremely Turbid (Clear); Urine Color Dark-Brown (Yellow); Urine Crystals Unidentified Many /HPF (None Seen); Urine Culture Reflex Order REFLEXED; Urine Glucose 1+ (Negative); Urine Ketones NEGATIVE (Negative); Urine Microscopic Reflex YN ORDER UMIC; Urine Nitrite NEGATIVE (Negative); Urine Protein 2+ (Negative); Urine RBC >50 /HPF (None Seen); Urine Urobilinogen Normal (Normal); Urine WBC >50 /HPF (<5); Urine WBC Clump Many /HPF (None Seen)
[2025-02-14] MEDS: CEFTRIAXONE 1,000 MG in NA CHLORIDE 0.9% 50 ML IVPB SCH (17:22)
[2025-02-14] MEDS: ATORVASTATIN 40 MG TAB PO SCH (20:42)
[2025-02-14] MEDS: QUETIAPINE 25 MG TAB PO SCH (20:42)
[2025-02-15] MEDS: LEVOTHYROXINE SOD 0.112 MG TAB PO SCH (05:23)
[2025-02-15 05:48] LABS: Albumin 2.1 g/dL (3.4-5.0); Anion Gap 10.4 mEq/L (5.0-15.0); Phosphorus 3.4 mg/dL (2.5-4.9); Potassium 4.4 mEq/L (3.5-5.1); Uric Acid 7.2 mg/dL (2.6-6.0)
--- NOTE | 2025-02-15 08:26 | P.PN ---
Subjective Date of Service: 02/15/25 Chief Complaint: Acute kidney failure The patient is a poor historian, admitted for dehydration, acute kidney injury acute cystitis, started IV antibiotics, <MarcieChayo - Last Filed: 02/15/25 17:30> Date of Service: 02/15/25 <Betsey Gutierrez - Last Filed: 02/15/25 17:52> Review of Systems 10-point ROS is otherwise unremarkable <MarcieChayo - Last Filed: 02/15/25 17:30> Physical Examination - Vital Signs Temperature: 97.0 F Blood Pressure: 135/68 Pulse: 68 Respirations: 18 Pulse Ox (%): 95 - Physical Exam General: Alert, Confused, Other (Frail) HEENT: Atraumatic, Normocephalic, PERRLA Respiratory: Clear to auscultation bilaterally, Normal air movement Cardiovascular: Normal pulses, Regular rate/rhythm, Normal S1 S2 Capillary refill: <2 Seconds Gastrointestinal: Normal bowel sounds, Tenderness Musculoskeletal: Other (Generalized weakness) Neurological: Normal speech, Normal affect, Dementia <MarcieChayo - Last Filed: 02/15/25 17:30> Assessment And Plan - Plan 1. Acute cystitis with hematuria Current Visit: Yes Status: Acute 2. Acute kidney injury Current Visit: Yes Status: Acute 3 hyponatremia Current Visit: No Status: Acute 4. 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 Dementia Current Visit: No Status: Acute 8 HLD (hyperlipidemia) Current Visit: No Status: Chronic - Plan Assessment This is a elderly 89-year-old female who is being admitted after she was brought in from assisted for evaluation of abnormal blood work. She has hyperkalemia and acute kidney injury. Potassium is at 5.5 and creatinine 4.9. Patient's EKG revealed normal sinus rhythm. Patient is a poor historian Plan: Will admit inpatient with telemetry Nephrology consulted IV fluids, IV antibiotic A trial of volume repletion with normal saline Renal ultrasound and nephrology consult Avoid nephrotoxins Resume rest of home medications upon reconciliation DVT prophylaxis with heparin subcu Renal ultrasound ordered Urine cultures Trend kidney function - Advance Directives Does patient have a Living Will: No Does patient have a Durable POA for Healthcare: No Discharge Plan: Home - Code Status/Comfort Care Code Status: Full Code Critical Care: No Time Spent Managing PTS Care (In Minutes): 35 <Chayo Jack - Last Filed: 02/15/25 17:30> Physician Review: Patient Assessed, Agree with Above Assessment and Plan <Betsey Gutierrez - Last Filed: 02/15/25 17:52>
--- NOTE | 2025-02-15 09:56 | PN ---
Date of Progress Note: 02/15/2025 Subjective: The patient was admitted with acute kidney injury and UTI. The acute kidney injury was secondary to the prerenal superimposed with ARB and toxic ATN secondary to the UTI. After hydration, kidney function has been improved, creatinine down to 2.2 from 4.6. The patient is still confused. Physical Examination: Vital Signs: When I saw the patient, blood pressure 135/68, pulse of 68, afebrile. Chest: Clear to auscultation. Heart: S1, S2 regular. Abdomen: Soft. No guarding. Mild tenderness. Extremities: No edema. Neurologic: Alert. No focality. Lab Data: Sodium 142, potassium 4.4, bicarb 19, BUN 60, creatinine 2.2, uric acid 7.2, calcium 8.5, phosphorus 3.4, albumin 2.1 corrected calcium is 8.8, hemoglobin 11.5. Culture still pending. Assessment And Plan: 1. Acute kidney injury multifactorial secondary to the prerenal superimposed with ARB, superimposed with toxic ATN secondary to UTI on the recovery, still on the dry side. I am going to continue the patient on the hydration and we will monitor the patient. 2. Continue antibiotic. 3. Hypertension with the presence of acute kidney injury. Keep holding her ARB. 4. Hyponatremia depletion, resolved. 5. Hyperkalemia secondary to renal failure and ARB, resolved. 6. Acidosis, non-anion gap metabolic acidosis. Continue IV hydration. I am going to go ahead and change IV fluid to LR and will follow up with the patient. 7. Dementia. Continue supportive care. 8. UTI. Continue current antibiotic. Will follow up culture. 9. Hydronephrosis on the left side, mild. Given the continued improvement in the kidney function, I do not see the need for any intervention for the time being. Time spent examining the patient [id number] reviewing that the lab and the radiology placing order discussing the case with the patient discussing the case with the steam gigger including hospitalist and nursing staff more than 55 minutes GUERO Voice ID: [id number] Report ID: [id number] BRAD
[2025-02-15] MEDS: Ringers Lactate 1,000 ML IV SCH (10:00)
[2025-02-16 06:16] LABS: Magnesium 1.9 mg/dL (1.6-2.4); Phosphorus 3.1 mg/dL (2.5-4.9)
--- NOTE | 2025-02-16 08:02 | P.PN ---
Date of Service: 02/16/25 Subjective Chief Complaint: Acute kidney failure The patient is a poor historian, admitted for dehydration, acute kidney injury acute cystitis, started IV antibiotics, Kidney function improving, diet advanced to soft Review of Systems 10-point ROS is otherwise unremarkable < Physical Examination - Vital Signs Reviewed - Physical Exam General: Alert, Other (Frail), afebrile HEENT: Atraumatic, Normocephalic, Respiratory: , respirations equal, unlabored Cardiovascular: Normal pulses, Regular rate/rhythm, Normal S1 S2 Capillary refill: <2 Seconds Gastrointestinal: Normal bowel sounds, Tenderness Musculoskeletal: Other (Generalized weakness) Neurological: Normal speech, Normal affect, Dementia Assessment And Plan - Plan 1. Acute cystitis with hematuria Current Visit: Yes Status: Acute 2. Acute kidney injury Current Visit: Yes Status: Acute 3 hyponatremia Current Visit: No Status: Acute 4. 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 Dementia Current Visit: No Status: Acute 8 HLD (hyperlipidemia) Current Visit: No Status: Chronic - Plan Assessment This is a elderly 89-year-old female who is being admitted after she was brought in from senior care for evaluation of abnormal blood work. She has hyperkalemia and acute kidney injury. Potassium is at 5.5 and creatinine 4.9. Patient's EKG revealed normal sinus rhythm. Patient is a poor historian Plan: Will admit inpatient with telemetry Nephrology consulted IV fluids, IV antibiotic ceftriaxone BUN 88, 60, 42 Creatinine 3.26, 2.22, 1.85, GFR 13, 21, 26, Urine cultures no growth, greater than 500 leukoesterase, RBCs greater than 50, WBCs greater than 50, bacteria 20-50, 2+ protein, nitrite negative, trend kidney function A trial of volume repletion with normal saline Renal ultrasound pending Avoid nephrotoxins Resume rest of home medications upon reconciliation Hypothyroidism, follow-up with PCP after discharge, TSH 24.000 Diet renal DVT prophylaxis with heparin subcu Full code - Advance Directives Does patient have a Living Will: No Does patient have a Durable POA for Healthcare: No Discharge Plan: Home - Code Status/Comfort Care Code Status: Full Code Critical Care: No Time Spent Managing PTS Care (In Minutes): 35
[2025-02-16] MEDS: METOPROLOL TAR 50 MG TAB PO SCH (09:28)
--- NOTE | 2025-02-16 12:16 | EKG ---
Test Date: 2025-02-13 Test Time: 15:01:54 Boot And Saddle Repair Person: SAVANA MEASUREMENT RESULTS: Intervals: Rate: 86 SC: 116 QRSD: 72 QT: 364 QTc: 435 [place]: P: 90 SC: 116 QRS: 56 T: 1 INTERPRETIVE STATEMENTS: Normal sinus rhythm with sinus arrhythmia Nonspecific T wave abnormality Abnormal ECG Compared to ECG 01/14/2025 13:20:41 T-wave abnormality now present Ventricular premature complex(es) no longer present Electronically Signed On 02-16-25 12:09:32 CDT by Jose Ramon Giron
--- NOTE | 2025-02-16 14:19 | P.PN ---
This is an attestation to INSPECTING SUPERVISOR note. Subjective: No chest pain or shortness of breath. No nausea or vomiting. No abdominal pain. No obvious bleeding. Looks comfortable in the bed. Objective: General appearance: Alert and comfortable CVS: Normal S1 and S2 Lungs: Clear to auscultation bilaterally Abdomen: Soft, bowel sounds present, no tenderness Extremities: No lower extremity edema 89-year-old patient with acute renal failure, renal ultrasound showed left hydronephrosis, possible pyelonephritis, continue fluids and antibiotics, creatinine improving, urine culture negative so far, nephrology following, repeat renal US. Hypothyroidism, continue levothyroxine, elevated TSH, decreased free T4, need close follow-up with PCP. Hypertension, adjusted blood pressure medications. Plan discussed with the patient and family at bedside.
[2025-02-16] MEDS: HYDRALAZINE HCL 20 MG/ML VIAL IV PRN (16:56)
--- NOTE | 2025-02-16 22:11 | RAD REPORT ---
EXAMINATION: US RETROPERITONEUM CLINICAL INDICATION: [facility] MAIN f/u left hydronephrosis TECHNIQUE: Real-time ultrasonography of the abdomen was performed. COMPARISON: 02/13/2025 FINDINGS: Evaluation is limited by overshadowing ribs particularly on the right obscuring the mid to lower pole regions of the right kidney. RIGHT KIDNEY: Right renal length measurement: 8.2 cm. Normal in echogenicity and size. No calculus, s olid mass or hydronephrosis. LEFT KIDNEY: Left renal length measurement: 8.3 cm. Normal in echogenicity and size. No calculus, or solid mass. Mild prominence of the left renal pelvis, with debris, stable. URINARY BLADDER: Distended with layering debris again seen. No echogenic calculi. ADDITIONAL FINDINGS: None. IMPRESSION: Stable mild left hydronephrosis with debris. Layering debris in the bladder. No significant interval change.
--- NOTE | 2025-02-17 02:07 | PN ---
Date of Progress Note: 02/16/2025 Chief Complaint: Acute kidney injury. Subjective: The patient is treated for urinary tract infection. She was found to have acute kidney injury. She developed acute kidney injury secondary to prerenal azotemia superimposed with angiotens in receptor kari effect and toxic ATN in setting of urinary tract infection. After IV fluids, radha al function slightly improved and creatinine improved from 4.6 to 2.2. The patient remains somewhat confused, cannot provide review of systems. Physical Examination: General: Not in acute distress. Chest: Clear to auscultation bilaterally. Abdomen: Soft, benign. No guarding. Heart: S1, S2. No pericardial friction rub. Extremities: No edema. Impression And Plan: 1. Acute kidney injury, multifactorial, secondary to prerenal azotemia, superimposed with angiotensin receptor kari effect, superimposed with toxic acute tubular necrosis secondary to volume depletio n and urinary tract infection. Continue IV fluids. 2. Continue antibiotics for urinary tract infection. 3. Hyponatremia, depletional, resolved. 4. Hypertension, angiotensin receptor kari is on hold due to acute kidney injury. 5. Acidosis, non-anion gap metabolic acidosis. Continue IV fluids. The patient was started on lacta dane Ringer. 6. Dementia. Continue supportive care per Primary team. 7. Urinary tract infection. Continue antibiotics. 8. Hydronephrosis, left-sided hydronephrosis, mild. The patient will need workup and management per Urology. EB/MODL Voice ID: [id number] Report ID: [id number]
[2025-02-17 04:18] LABS: UR PROTEIN 121.8 mg/dL (<11.9); Urine Protein/Creatinine Ratio 1.65 ratio (<0.15)
[2025-02-17 05:51] LABS: Absolute Lymphocytes (CBC) 0.6 K/uL (0.7-4.9); Absolute Monocytes 0.9 K/uL (0.1-1.3); Absolute Neutrophil 4.4 K/uL (1.8-8.0); Basophils % 0.2 % (0-1.3); Eosinophils % 0.6 % (0-4.4); Hematocrit 30.2 % (36.0-45.0); Hemoglobin 10.3 g/dL (12.0-15.0); Lymphocytes % 10.7 % (15.3-44.8); MCH 29.2 pg (27.0-35.0); MCV 85.7 fL (80-100); MPV 6.8 fL (7.6-11.3); Neutrophils % 73.5 % (41.7-73.7); Nucleated Red Blood Cells % 0.1 % (0-0); Platelets 229 thou/uL (152-406); RBC Red Blood Cell Count 3.52 M/uL (3.86-4.86); Red Cell Distribution Width 15.2 % (12.1-15.2)
[2025-02-17 06:05] LABS: Albumin 2.1 g/dL (3.4-5.0); Anion Gap 10.6 mEq/L (5.0-15.0); Magnesium 1.7 mg/dL (1.6-2.4); Phosphorus 2.9 mg/dL (2.5-4.9); Potassium 4.6 mEq/L (3.5-5.1)
--- NOTE | 2025-02-17 07:35 | P.PN ---
Date of Service: 02/17/25 Subjective Chief Complaint: Acute kidney failure The patient is a poor historian, admitted for dehydration, acute kidney injury acute cystitis, started IV antibiotics, Kidney function improving, diet advanced to soft Review of Systems 10-point ROS is otherwise unremarkable < Physical Examination - Vital Signs Reviewed - Physical Exam General: Alert, Other (Frail), afebrile HEENT: Supple, atraumatic, Respiratory: , respirations equal, unlabored Cardiovascular: Regular rate/rhythm, Normal S1 S2, no edema Capillary refill: <2 Seconds Gastrointestinal: Normal bowel sounds, Tenderness Musculoskeletal: Other (Generalized weakness) Neurological: Normal speech, Normal affect, Dementia Assessment And Plan - Plan 1. Acute cystitis with hematuria Current Visit: Yes Status: Acute 2. Acute kidney injury Current Visit: Yes Status: Acute 3 hyponatremia Current Visit: No Status: Acute 4. 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 Dementia Current Visit: No Status: Acute 8 HLD (hyperlipidemia) Current Visit: No Status: Chronic - Plan Assessment This is a elderly 89-year-old female who is being admitted after she was brought in from [facility] for evaluation of abnormal blood work. She has hyperkalemia and acute kidney injury. Potassium is at 5.5 and creatinine 4.9. Patient's EKG revealed normal sinus rhythm. Patient is a poor historian Plan: Will admit inpatient with telemetry Nephrology consulted IV fluids, IV antibiotic ceftriaxone BUN 88, 60, 42, 36 Creatinine 3.26, 2.22, 1.85, 1.90 GFR 13, 21, 26, GFR 25 Urine cultures no growth, greater than 500 leukoesterase, RBCs greater than 50, WBCs greater than 50, bacteria 20-50, 2+ protein, nitrite negative, trend kidney function A trial of volume repletion with normal saline Renal ultrasound pending Avoid nephrotoxins Resume rest of home medications upon reconciliation Hypothyroidism, follow-up with PCP after discharge, TSH 24.000 Diet renal DVT prophylaxis with heparin subcu Full code - Advance Directives Does patient have a Living Will: No Does patient have a Durable POA for Healthcare: No Discharge Plan: Home - Code Status/Comfort Care Code Status: Full Code Critical Care: No Time Spent Managing PTS Care (In Minutes): 25
[2025-02-17] MEDS: MAGNESIUM SULFATE 1 gm IVPB 1 GM/100 ML BAG IV ONE (08:28)
--- NOTE | 2025-02-17 12:52 | P.PN ---
This is an attestation to MANAGER CAFE note. Subjective: No chest pain or shortness of breath. No nausea or vomiting. No abdominal pain. No obvious bleeding. Looks comfortable in the bed. Objective: General appearance: Alert and comfortable CVS: Normal S1 and S2 Lungs: Clear to auscultation bilaterally Abdomen: Soft, bowel sounds present, no tenderness Extremities: No lower extremity edema 89-year-old patient with acute renal failure, renal ultrasound showed left hydronephrosis, possible pyelonephritis, on fluids and antibiotics, creatinine improving, urine culture negative so far, nephrology following, repeat renal US showed left hydro, need urology f/u (no urology conuslt availabel in the hospital now), DC ABX as urine culture neg (already received for 4 days) and monitor off ABX. Hypothyroidism, continue levothyroxine, elevated TSH, decreased free T4, need close follow-up with PCP. Anemia, seems chronic, monitor closely. Hypertension, blood pressure stable. Plan discussed with the patient and family at bedside. d/w CM team.
--- NOTE | 2025-02-17 19:28 | PN ---
Date of Progress Note: 02/17/2025 Subjective: The patient was admitted to the hospital with altered mental status, acute kidney injury secondary to prerenal. The patient was hydrated. Kidney function has been improved significantly. Physical Examination: General: When I saw the patient, the patient sitting in bed, still confused. Vital Signs: Blood pressure 135/65, pulse of 88, afebrile. Chest: Clear to auscultation. Heart: S1, S2. Systolic murmur. Abdomen: Soft, nontender. Extremities: No edema. Neurologic: Alert, confused. No focality. Laboratory Data: WBC 6, hemoglobin 10.3. Sodium 143, potassium 4.6, bicarb 21, BUN 36, creatinine 1.9, GFR 25, calcium 8.9, phosphorus 2.9, magnesium 1.7, albumin 2.1, corrected calcium is 10.5. Current Medications: The patient is on include aspirin, albuterol, metoprolol, atorvastatin, LR at 100 . Assessment And Plan: 1. Acute kidney injury, secondary to prerenal. I am going to continue the patient on hydration as the patient has still poor intake. 2. UTI. Continue current antibiotic. 3. Hypertension, controlled. Keep holding ARB. 4. Hyponatremia, depletional, resolved. 5. Hyperkalemia, resolved. 6. Acidosis, secondary to IV fluid, resolved. Continue LR. 7. Mild hydronephrosis on the left side. Kidney function improving. No need for any intervention. Time spent examining the patient [id number] reviewing that the lab and the radiology placing order discussing the case with the patient discussing the case with the medical director/head team physician including hospitalist and nursing staff more than 55 minutes GUERO Voice ID: [id number] Report ID: [id number] BRAD
[2025-02-17 22:02] VITALS: O2SAT 97
[2025-02-18 04:29] VITALS: BMI 3186.5
[2025-02-18 06:31] LABS: Albumin 1.9 g/dL (3.4-5.0); Anion Gap 11.4 mEq/L (5.0-15.0); Phosphorus 2.5 mg/dL (2.5-4.9)
[2025-02-18 06:32] LABS: Magnesium 1.6 mg/dL (1.6-2.4); Potassium 4.4 mEq/L (3.5-5.1)
--- NOTE | 2025-02-18 08:23 | P.PN ---
Date of Service: 02/18/25 Subjective Chief Complaint: Acute kidney failure The patient is a poor historian, admitted for dehydration, acute kidney injury acute cystitis, started IV antibiotics, Kidney function improving, diet advanced to soft, at bed Review of Systems 10-point ROS is otherwise unremarkable < Physical Examination - Vital Signs Reviewed - Physical Exam General: Alert, Other (Frail), afebrile HEENT: Supple, atraumatic, Respiratory: , respirations equal, unlabored Cardiovascular: Regular rate/rhythm, Normal S1 S2, no edema Capillary refill: <2 Seconds Gastrointestinal: Normal bowel sounds, Tenderness Musculoskeletal: Other (Generalized weakness) Neurological: Normal speech, Normal affect, Dementia Assessment And Plan - Plan 1. Acute cystitis with hematuria Current Visit: Yes Status: Acute 2. Acute kidney injury Current Visit: Yes Status: Acute 3 hyponatremia Current Visit: No Status: Acute 4. 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 Dementia Current Visit: No Status: Acute 8 HLD (hyperlipidemia) Current Visit: No Status: Chronic - Plan Assessment This is a elderly 89-year-old female who is being admitted after she was brought in from [facility] for evaluation of abnormal blood work. She has hyperkalemia and acute kidney injury. Potassium is at 5.5 and creatinine 4.9. Patient's EKG revealed normal sinus rhythm. Patient is a poor historian Plan: Will admit inpatient with telemetry Nephrology consulted IV fluids, IV antibiotic ceftriaxone BUN 88, 60, 42, 36, 27 Creatinine 3.26, 2.22, 1.85, 1.90, 1.4 GFR 13, 21, 26, GFR 25, 34 Urine cultures no growth, greater than 500 leukoesterase, RBCs greater than 50, WBCs greater than 50, bacteria 20-50, 2+ protein, nitrite negative, trend kidney function A trial of volume repletion with normal saline Renal ultrasound pending Avoid nephrotoxins Resume rest of home medications upon reconciliation Hypothyroidism, follow-up with PCP after discharge, TSH 24.000 Diet renal DVT prophylaxis with heparin subcu Full code - Advance Directives Does patient have a Living Will: No Does patient have a Durable POA for Healthcare: No Discharge Plan: Home - Code Status/Comfort Care Code Status: Full Code Critical Care: No Time Spent Managing PTS Care (In Minutes): 25
[2025-02-18] MEDS: AMLODIPINE 5 MG TAB PO SCH (08:30)
[2025-02-18] MEDS: MAGNESIUM SULFATE 1 gm IVPB 1 GM/100 ML BAG IV ONE ×2 (08:31→12:43)
--- NOTE | 2025-02-18 13:32 | P.PN ---
This is an attestation to [employer] REPRESENTATIVE note. Subjective: No chest pain or shortness of breath. No nausea or vomiting. No abdominal pain. No obvious bleeding. Looks comfortable in the bed. Objective: General appearance: Alert and comfortable CVS: Normal S1 and S2 Lungs: Clear to auscultation bilaterally Abdomen: Soft, bowel sounds present, no tenderness Extremities: No lower extremity edema 89-year-old patient with acute renal failure, renal ultrasound showed left hydronephrosis, possible pyelonephritis, started on on fluids and antibiotics, creatinine improving, urine culture negative so far, nephrology following, repeat renal US showed left hydro, need urology f/u (no urology conuslt availabel in the hospital now), DC ABX as urine culture neg (already received for 4 days). Hypothyroidism, continue levothyroxine, elevated TSH, decreased free T4, need close follow-up with PCP. Anemia, seems chronic, monitor closely. Hypertension, blood pressure stable. Plan discussed with the patient and family at bedside. d/w CM team. dc back to facility today.
[2025-02-18 13:58] LABS: Abnormal Protein Band 1 REPORT; Albumin, (SPE) 2.3 g/dL (3.8-4.8); Alpha-1-Globulins 0.6 g/dL (0.2-0.3); Beta 1 Globulin 0.4 g/dL (0.4-0.6); Gamma Globulins 0.6 g/dL (0.8-1.7); INTERPRETATION REPORT; Total Protein 5.2 g/dL (6.1-8.1)
--- NOTE | 2025-02-18 15:53 | P.DS ---
Admission Date: 02/13/25 Discharge Date: 02/18/25 Reason for Admission: Acute kidney failure Brief History of Present Illness: Patient is a 89-year-old female brought in from a snf via EMS for evaluation of abnormal lab results. She has been found to have acute kidney injury creatinine of 4.9. Baseline creatinine 1.2. She has recently been transition to snf. She used to follow with Dr. Benitez who has now transferred the care to the hospitalist service. During my evaluation, patient was awake and slightly frail. She is a poor historian. She denies recent episodes of volume loss via diarrhea or vomiting. Could not establish if she is currently taking NSAIDs. Physical Exam General: Alert, Other (Frail), afebrile HEENT: Supple, atraumatic, Respiratory: , respirations equal, unlabored Cardiovascular: Regular rate/rhythm, Normal S1 S2, no edema Capillary refill: <2 Seconds Gastrointestinal: Normal bowel sounds, Tenderness Musculoskeletal: Other (Generalized weakness) Neurological: Normal speech, Normal affect, Dementia Hospital Course: Patient is a 89-year-old female brought in from a snf via EMS for evaluation of abnormal lab results. She has been found to have acute kidney injury creatinine of 4.9. Baseline creatinine 1.2. She has recently been transition to snf. She used to follow with Dr. Benitez who has now transferred the care to the hospitalist service. During my evaluation, patient was awake and slightly frail. She is a poor historian. She denies recent episodes of volume loss via diarrhea or vomiting. Could not establish if she is currently taking NSAIDs. She was treated for acute cystitis with hematuria, acute kidney injury, she was seen by nephrology, she is cleared for discharge, plan to discharge to long-term facility will need to follow-up with nephrology after Follow-up with nephrology Dr. Thompson in 1 to 2-week CBC, CMP, TSH, free T4 in 1 week Assessment acute cystitis with hematuria resolved, reated with IV antibiotics, Acute kidney injury, history of CKD, was seen by nephrology while inpatient, follow-up with nephrology in 1-2 weeks Hyponatremia improved with IV fluid Hyperkalemia resolved Long-term use of anticoagulations resume after hip Dementia supportive care, fall precaution Hyperlipidemia resume after discharge Trended kidney functionBUN 88, 60, 42, 36, 27 Creatinine 3.26, 2.22, 1.85, 1.90, 1.4 GFR 13, 21, 26, GFR 25, 34 Urine cultures no growth, greater than 500 leukoesterase, RBCs greater than 50, WBCs greater than 50, bacteria 20-50, 2+ protein, nitrite negative, Continue home medicines as previously prescribed GOAL: Clear understanding of disease process INSTRUCTIONS: Physician Discharge Instructions: -Follow-up with PCP in 1 to 2 weeks Follow-up with nephrology in 1 week -Please call f any questions regarding hospital stay -Please call nursing station at [phone] if any nursing or medication questions -Return to the emergency room if symptoms worsen Diet: ADA, low sodium Activity: Fall precautions Vital Signs/Physical Exam: Temp Pulse Resp BP Pulse Ox 98.5 F 71 20 134/66 98 02/18/25 12:00 02/18/25 12:00 02/18/25 12:00 02/18/25 12:00 02/18/25 12:00 Laboratory Data at Discharge: WBC 6.00 thou/uL (4.3-10.9) 02/17/25 05:39 Hgb 10.3 g/dL (12.0-15.0) L 02/17/25 05:39 Hct 30.2 % (36.0-45.0) L 02/17/25 05:39 Plt Count 229 thou/uL (152-406) 02/17/25 05:39 Sodium 143 mEq/L (136-145) 02/18/25 05:56 Potassium 4.4 mEq/L (3.5-5.1) 02/18/25 05:56 BUN 27 mg/dL (7-18) H 02/18/25 05:56 Creatinine 1.45 mg/dL (0.55-1.02) H 02/18/25 05:56 Glucose 112 mg/dL (74-106) H 02/18/25 05:56 Uric Acid 7.2 mg/dL (2.6-6.0) H 02/15/25 05:04 Phosphorus 2.5 mg/dL (2.5-4.9) 02/18/25 05:56 Magnesium 1.6 mg/dL (1.6-2.4) 02/18/25 05:56 Total Bilirubin 0.8 mg/dL (0.2-1.0) 02/14/25 05:05 AST 20 U/L (15-37) 02/14/25 05:05 ALT 31 U/L (13-56) 02/14/25 05:05 Alkaline Phosphatase 88 U/L (45-117) 02/14/25 05:05 Triglycerides 86 mg/dL (<150) 02/14/25 05:05 Cholesterol 78 mg/dL (<200) 02/14/25 05:05 HDL Cholesterol 42 mg/dL (40-60) 02/14/25 05:05 Cholesterol/HDL Ratio 1.86 02/14/25 05:05 Home Medications: Atorvastatin Calcium [Lipitor] 40 mg PO BEDTIME 11/20/22 Losartan Potassium [Cozaar] 50 mg PO DAILY 11/20/22 Metoprolol Tartrate [Lopressor] 50 mg PO BID 11/20/22 Amlodipine [Norvasc] 5 mg PO DAILY 01/15/25 Acetaminophen 650 mg PO Q6H PRN 02/13/25 Aspirin 81 mg PO DAILY 02/13/25 Cyanocobalamin [Vitamin B-12] 1,000 mcg PO DAILY 02/13/25 Levothyroxine [Synthroid] 112 mcg PO DAILY 02/13/25 Quetiapine Fumarate [Seroquel] 25 mg PO BEDTIME 02/13/25 Followup: Meng Benitez MD [Primary Care Provider] - Rusty Singh MD [ACTIVE - CAN ADMIT] - Time spent managing pt's care (in minutes): 45
[2025-02-18 16:30] VITALS: BP 148/72; TEMP 98.4
--- NOTE | 2025-02-18 19:09 | PN ---
Date of Progress Note: 02/18/2025 Subjective: The patient was admitted to the hospital with acute kidney injury multifactorial seconda ry to prerenal/UTI superimposed with ARB. Patient after hydration, kidney function has been improved . The patient still poor intake. Physical Examination: Vital Signs: When I saw the patient, the blood pressure 147/73, pulse of 84, afebrile. The patient had good urine output. Chest: Clear to auscultation. Heart: S1, S2. Regular. Abdomen: Soft, nontender. Extremities: No edema. Neurologic: Alert. Pleasantly confused. Laboratory Data: Hemoglobin 10.3, sodium 143, potassium 4.4, bicarb 19, BUN 27, creatinine 1.4, GFR of 34, calcium 8.4, phosphorus 2.5, magnesium 1.6, albumin 1.9, corrected calcium is 10. Current Medications: The patient on, it includes heparin, aspirin, metoprolol 50 b.i.d., amlodipine 5 mg, ipratropium, levothyroxine, magnesium sulfate. Assessment And Plan: 1. Acute kidney injury secondary to prerenal/toxic ATN secondary to urinary tract infection superimpo sed with ARB, recovered, resolved. We will discontinue IV fluid. The patient cleared from the Renal standpoint for discharge planning. 2. Hypertension, controlled, optimal. Keep holding ARB for the time being. 3. Acidosis, non-anion gap metabolic acidosis. I am going to go ahead and start the patient on sodiu m bicarb and we will follow up the response for the patient. LR has been discontinued. 4. Hypomagnesemia. We will supplement. GUERO Voice ID: [id number] Report ID: [id number]
[2025-02-18] MEDS ORDERED: SODIUM BICARB 325 MG TAB PO SCH (21:00)
== END 2025-02-18 18:33 | DRG 683 ==
LOC: ER 14:46 → 2ND 19:12
PROVIDERS: ADMIT Internal Medicine; ATTEND Hospitalist
DX: N17.0 Acute kidney failure with tubular necrosis (principal); E87.1 Hypo-osmolality and hyponatremia; N30.01 Acute cystitis with hematuria; R65.10 Systemic inflammatory response syndrome (SIRS) of non-infectious origin without acute organ dysfunction; E87.20 Acidosis, unspecified; E87.5 Hyperkalemia; E83.42 Hypomagnesemia; E86.0 Dehydration; E03.9 Hypothyroidism, unspecified; E78.00 Pure hypercholesterolemia, unspecified; I12.9 Hypertensive chronic kidney disease with stage 1 through stage 4 chronic kidney disease, or unspecified chronic kidney disease; N18.9 Chronic kidney disease, unspecified; E11.22 Type 2 diabetes mellitus with diabetic chronic kidney disease; D63.1 Anemia in chronic kidney disease; I25.2 Old myocardial infarction; I25.10 Atherosclerotic heart disease of native coronary artery without angina pectoris; F03.90 Unspecified dementia, unspecified severity, without behavioral disturbance, psychotic disturbance, mood disturbance, and anxiety; Z88.0 Allergy status to penicillin; Z79.899 Other long term (current) drug therapy
CPT/HCPCS: 36415; 76770; 80053; 80061; 80069; 81001; 82550; 82570; 82947; 83036; 83605; 83735; 83970; 84100; 84156; 84165; 84439; 84443; 84550; 85025; 87086; 87088; 93005; 96360; 96361; 97161; 97530; 99285; J0360; J0696; J1644; J3475; J7030; J7120